=== PATIENT | female | born 1930 | race Caucasian/White ===

== ENCOUNTER 2016-06-21 05:39 | Emergency (ER) | payer MEDICARE, BC ==
[2016-06-21] MEDS ORDERED: Ondansetron INJ* 2 MG/ML VIAL IV ONE (06:37)
[2016-06-21] MEDS ORDERED: NS 0.9% 1000 ML* 2,000 ML IV ONE (06:37)
[2016-06-21 07:02] LABS: Hematocrit 47 % (35-47); Mean Corpuscular HGB Conc 34 g/dl (31-36); Mean Corpuscular Hemoglobin 30 pg (27-31); Mean Corpuscular Volume 87 fL (80-97); Mean Platelet Volume 8 um3 (7.4-10.4); Red Cell Distribution Width 13 % (10.5-15); White Blood Count 9.6 10^3/ul (3.5-10.8)
[2016-06-21 07:15] LABS: Albumin 3.9 g/dL (3.2-5.2); BUN/Creatinine Ratio 23.4 (8-20); Calcium 10.1 mg/dL (8.6-10.3); EGFR African American 91.8 (>60); EGFR Non-African American 71.4 (>60); Globulin 2.7 g/dL (2-4); Potassium 3.1 mmol/L (3.5-5.0); Total Bilirubin 0.6 mg/dL (0.2-1.0); Total Protein 6.6 g/dL (6.4-8.9)
[2016-06-21] MEDS ORDERED: Potassium Chlor TAB* 20 MEQ TAB.ER PO ONE (07:57)
[2016-06-21 08:04] LABS: Troponin I 0.01 ng/mL (<0.04)
--- NOTE | 2016-06-21 08:06 | RAD ---
HISTORY: Right upper quadrant pain COMPARISONS: None TECHNIQUE: Multiple transverse and longitudinal ultrasound images were obtained of the right upper quadrant of the abdomen using grayscale and color Doppler imaging. FINDINGS: LIVER: The liver is normal in shape, size, contour, and echogenicity. There are no focal parenchymal masses. There is normal hepatopedal flow of the portal vein on Doppler imaging. BILIARY TREE: There is ectasia of the common duct without intrahepatic biliary dilatation. The common duct measures 0.8 cm. GALLBLADDER: 80 cm echogenic focus consistent with a gallstone is noted towards the neck of the gallbladder. There is no gallbladder wall thickening or pericholecystic fluid. The presence or absence of a sonographic Tinajero sign is reported. PANCREAS: The head of the pancreas is unremarkable. The tail of the pancreas is not well visualized secondary to overlying bowel gas. RIGHT KIDNEY: There is renal cortical parenchymal thinning. There is no hydronephrosis or nephrolithiasis. The right kidney measures 9.9 x 5.3 x 5 cm. AORTA AND IVC: The aorta and IVC are unremarkable. FLUID: There are no pleural effusions. There is no free fluid within the hepatorenal recess. OTHER FINDINGS: None. IMPRESSION: 1. CHOLELITHIASIS. 2. ECTASIA OF THE COMMON DUCT UP TO 0.8 CM.
--- NOTE | 2016-06-21 11:18 | ED ---
Donna Miner Matthew, scribed for Pedro Luis Benson MD on 06/21/16 at 0732 . GI/ HPI - HPI Summary HPI Summary: An 86 y/o female presents to the ED c/o of nausea, vomiting, and diarrhea that began 4 days ago. Associated symptoms include RUQ abdominal pain, dizziness, and headache. The patient denies chest pain, SOB, fever, and chills. She states that she's been taking tramadol for pain management after multiple surgeries and abruptly stopped the medication 4 days ago. She last took Tramadol yesterday. - History of Current Complaint Chief Complaint: EDNauseaVomitDiarrh Time Seen by Provider: 06/21/16 07:12 Stated Complaint: N/V, DEHYDRATION Hx Obtained From: Patient Onset/Duration: Started Days Ago, Atraumatic, Still Present Timing: Constant Severity: Moderate Current Severity: Moderate Pain Intensity: 3 Location of Pain: RUQ Associated Signs and Symptoms: Positive: Dizziness, Nausea, Vomiting, Diarrhea, Abdominal Pain - RUQ, Other: - Headache. Negative: Fever, Chills, Chest Pain - Additional Pertinent History Primary Care Physician: [id number] - Allergy/Home Medications Allergies/Adverse Reactions: Allergies Allergy/AdvReac Type Severity Reaction Status Date / Time No Known Allergies Allergy Verified 06/21/16 07:25 PMH/Surg Hx/FS Hx/Imm Hx Endocrine/Hematology History: Denies: Hx Diabetes, Hx Thyroid Disease Cardiovascular History: Reports: Hx Hypertension Denies: Hx Pacemaker/ICD Respiratory History: Reports: Other Respiratory Problems/Disorders - sarcoidosis Denies: Hx Asthma, Hx Chronic Obstructive Pulmonary Disease (COPD), Hx Pneumonia GI History: Denies: Hx Gastroesophageal Reflux Disease, Hx Ulcer History: Denies: Hx Renal Disease Musculoskeletal History: Reports: Hx Arthritis - BACK AND FEET, Hx Back Problems - disk herniation, spinal stenosis with sx's, Other Musculoskeletal History - R rotator cuff repair Denies: Hx Rheumatoid Arthritis Sensory History: Reports: Hx Cataracts - BILATERAL, had sx, sees well, Hx Contacts or Glasses, Hx Macular Degeneration - slight, per patient, Hx Hearing Aid Opthamlomology History: Reports: Hx Cataracts - BILATERAL, had sx, sees well, Hx Contacts or Glasses, Hx Macular Degeneration - slight, per patient Neurological History: Reports: Other Neuro Impairments/Disorders - SPINAL STENOSIS Psychiatric History: Denies: Hx Panic Disorder - Surgical History Surgery Procedure, Year, and Place: 1972-HYSTERECTOMY;. 2005-BIOPSY OF LYMPH NODES;. 2006-ROTATOR CUFF REPAIR RIGHT SHOULDER;. BILATERAL CATARACT 2012;. BACK SURGERY 09/03/14 and 12/14/15-[facility] Hx Anesthesia Reactions: No Infectious Disease History: No Infectious Disease History: Denies: Hx Clostridium Difficile, Hx Hepatitis, Hx Human Immunodeficiency Virus (HIV), Hx of Known/Suspected MRSA, Hx Shingles, Hx Tuberculosis, Hx Known/ Suspected VRE, Hx Known/Suspected VRSA, History Other Infectious Disease, Traveled Outside the [place] in Last 30 Days - Family History Known Family History: Positive: Hypertension - sister, Diabetes - sister, Other - [place] - Social History Alcohol Use: None Substance Use Type: Reports: None Smoking Status (MU): Never Smoked Tobacco Have You Smoked in the Last Year: No Review of Systems Constitutional: Negative Negative: Fever, Chills Eyes: Negative ENT: Negative Cardiovascular: Negative Negative: Chest Pain Respiratory: Negative Negative: Shortness Of Breath Positive: Abdominal Pain - RUQ, Vomiting, Diarrhea, Nausea Genitourinary: Negative Musculoskeletal: Negative Skin: Negative Neurological: Other - Dizziness Positive: Headache Psychological: Normal All Other Systems Reviewed And Are Negative: Yes Physical Exam - Summary Physical Exam Summary: VITAL SIGNS: Reviewed. GENERAL: Patient is a well developed and nourished female who is lying comfortable in the stretcher. Patient is not in any acute respiratory distress. HEAD AND FACE: Normocephalic and atraumatic. EYES: PERRLA, EOMI x 2, No injected conjunctiva. EARS: Hearing grossly intact. Ear canals and tympanic membranes are WNL. MOUTH: Oropharynx within normal limits. NECK: Supple, trachea is midline, no adenopathy, no JVD. CHEST: Symmetric, no tenderness at palpation LUNGS: Clear to auscultation bilaterally. No wheezing or crackles. CVS: RRR,, S1 and S2 present, no murmurs or gallops appreciated. ABDOMEN: Soft, positive RUQ tenderness. No signs of distention. Positive bowel sounds. No rebound no guarding, and no masses palpated. No abdominal bruit or pulsations. EXTREMITIES: FROM in all major joints, no edema, no cyanosis or clubbing. NEURO: Alert and oriented x 3. No acute neurological deficits. Speech is normal. SKIN: Dry and warm Triage Information Reviewed: Yes Vital Signs On Initial Exam: Initial Vitals Temp Pulse Resp BP Pulse Ox 97.8 F 114 18 109/66 98 06/21/16 05:49 06/21/16 05:49 06/21/16 05:49 06/21/16 05:49 06/21/16 05:49 Vital Signs Reviewed: Yes Diagnostics - Vital Signs Vital Signs Temp Pulse Resp BP Pulse Ox 06/21/16 05:51 97.8 F 114 18 109/66 98 06/21/16 05:49 97.8 F 114 18 109/66 98 - Laboratory Lab Results: Lab Results 06/21/16 06/21/16 Range/Units 06:40 06:40 WBC 9.6 (3.5-10.8) 10^3/ul RBC 5.40 (4.0-5.4) 10^6/ul Hgb 16.0 (12.0-16.0) g/dl Hct 47 (35-47) % MCV 87 (80-97) fL MCH 30 (27-31) pg MCHC 34 (31-36) g/dl RDW 13 (10.5-15) % Plt Count 258 (150-450) 10^3/ul MPV 8 (7.4-10.4) um3 Neut % (Auto) 93.0 H (38-83) % Lymph % (Auto) 3.7 L (25-47) % Hudspeth % (Auto) 3.0 (1-9) % Eos % (Auto) 0.1 (0-6) % Baso % (Auto) 0.2 (0-2) % Absolute Neuts (auto) 8.9 H (1.5-7.7) 10^3/ul Absolute Lymphs (auto) 0.4 L (1.0-4.8) 10^3/ul Absolute Monos (auto) 0.3 (0-0.8) 10^3/ul Absolute Eos (auto) 0 (0-0.6) 10^3/ul Absolute Basos (auto) 0 (0-0.2) 10^3/ul Absolute Nucleated RBC 0.02 10^3/ul Nucleated RBC % 0.2 Sodium 133 (133-145) mmol/L Potassium 3.1 L (3.5-5.0) mmol/L Chloride 99 L (101-111) mmol/L Carbon Dioxide 25 (22-32) mmol/L Anion Gap 9 (2-11) mmol/L BUN 18 (6-24) mg/dL Creatinine 0.77 (0.51-0.95) mg/dL Est GFR ( Amer) 91.8 (>60) Est GFR (Non-Af Amer) 71.4 (>60) BUN/Creatinine Ratio 23.4 H (8-20) Glucose 139 H (70-100) mg/dL Calcium 10.1 (8.6-10.3) mg/dL Total Bilirubin 0.60 (0.2-1.0) mg/dL AST 24 (13-39) U/L ALT 19 (7-52) U/L Alkaline Phosphatase 100 (34-104) U/L C-React Prot High Sens 12.43 mg/L Total Protein 6.6 (6.4-8.9) g/dL Albumin 3.9 (3.2-5.2) g/dL Globulin 2.7 (2-4) g/dL Albumin/Globulin Ratio 1.4 (1-3) Lipase 20 (11.0-82.0) U/L Result Diagrams: 06/21/16 06:40 06/21/16 06:40 Lab Statement: Any lab studies that have been ordered have been reviewed, and results considered in the medical decision making process. - Ultrasound No standard instances Ultrasound Interpretation: Positive (See Comments) - IMPRESSION: 1. CHOLELITHIASIS. 2. ECTASIA OF THE COMMON DUCT UP TO 0.8 CM. Ultrasound Interpretation Completed By: Radiologist MARCIE Course/Dx - Course Assessment/Plan: An 86 y/o female presents to the ED c/o of nausea, vomiting, and diarrhea that began 4 days ago. Associated symptoms include RUQ abdominal pain, dizziness, and headache. The patient denies chest pain, SOB, fever, and chills. She states that she's been taking tramadol for pain management after multiple surgeries and abruptly stopped the medication 4 days ago. Blood work found to WNL except potassium of 3.1, chloride of 99, and glucose of 139. The patient was given potassium chloride PO and she did not have nausea and vomiting. The RUQ US was done since the patient was c/o of RUQ pain. The US shows cholelithiasis and ectasia of the common duct. After the patient was hydrated and given Zofran, her symptoms resolved. Patient reports on re- examination that shes feeling better and has no pain. Cholelithiasis but not an acute cholecystitis. The patient also reports that her symptoms are secondary to stopping the Tramadol. She will follow-up with her PCP to luz elena down the Tramadol. Since the patient is asymptomatic, has no other symptoms, tolerating PO, and pain free, she will be discharged home with PCP follow-up. She is hemodynamically stable and A&Ox3. I discussed all the findings and test results with the patient. Patient was instructed to return to the emergency room immediately if any of the symptoms return or worsens. They were explained the possibility of an early abdominal pathology which was not detected at this time despite the physical exam and testing. They understand and agree. Abdominal exam before discharge: Soft, NT. No signs of distention. BS present. No rebound no guarding, and no masses palpated. Patient is alert and oriented and hemodynamically stable. Patient is to follow up with primary care physician in the next 2 to 3 days. Patient agree and understands. - Diagnoses Differential Diagnoses - Female: Gall Bladder Disease, Gastroenteritis (Viral), Gastroenteritis (Bacterial), Gerd, Other Provider Diagnoses: Abdominal pain Discharge - Discharge Plan Condition: Stable Disposition: HOME Prescriptions: Ondansetron ODT TAB* [Zofran 4 MG Odt TAB*] 4 mg PO Q6H PRN #10 tab.odt PRN Reason: Vomiting Patient Education Materials: Abdominal Pain (ED), Ondansetron (By mouth) Referrals: Magda Unger MD [Primary Care Provider] - 2 Days Additional Instructions: Please follow-up with your primary care physician in the next 2 days. The documentation as recorded by the Donna sullivan Matthew accurately reflects the service I personally performed and the decisions made by me, Pedro Lusi Benson MD.
[2016-06-21 11:41] VITALS: BP 103/85
== END 2016-06-21 11:39 | disposition home or self-care (01) ==
LOC: ED 05:39
DX: R10.11 Right upper quadrant pain (principal); R42 Dizziness and giddiness; R11.2 Nausea with vomiting, unspecified; R19.7 Diarrhea, unspecified
CPT/HCPCS: 36415; 76705; 80053; 83690; 84484; 85025; 86141; 99284; A9270-GY; J2405

== ENCOUNTER 2016-10-26 04:47 | Emergency (ER) | payer MEDICARE, BC ==
[2016-10-26 05:09] VITALS: BP 147/71
--- NOTE | 2016-10-26 05:53 | ED ---
Juanita Miner Alfonso, scribed for Cayetano Rojas MD on 10/26/16 at 0524 . Adult Trauma - HPI Summary HPI Summary: This patient is an 86 year old F [facility] [place] a [place] s /p a fall earlier this morning. She reports falling on the way to the bathroom using a new cane. The pain is described as soreness. The patient rates the pain 4/10 in severity. Symptoms aggravated and alleviated by nothing. Patient reports left elbow pain, left forearm pain, left shoulder pain, left hip pain, and left leg pain. Patient denies head trauma. She denies taking blood thinning medication. - History of Current Complaint Chief Complaint: EDExtremityUpper Stated Complaint: FALL//SKIN TEARS ON LEFT ARM Time Seen by Provider: 10/26/16 05:10 Hx Obtained From: Patient Mechanism of Injury: Fall Ambulatory at the Scene: Yes Onset/Duration: Started Minutes Ago - Earlier this morning., Still Present Onset of Pain: Prior to Arrival Onset Severity: Moderate Current Severity: Moderate Pain Intensity: 4 Pain Scale Used: 0-10 Numeric Character: Dull - Soreness Aggravating Factor(s): Nothing Alleviating Factor(s): Nothing Associated Signs & Symptoms: Positive: Other: - Patient reports left elbow pain , left forearm pain, left shoulder pain, left hip pain, and left leg pain. Patient denies head trauma. - Additional Pertinent History Primary Care Physician: [id number] - Allergy/Home Medications Allergies/Adverse Reactions: Allergies Allergy/AdvReac Type Severity Reaction Status Date / Time No Known Allergies Allergy Verified 06/21/16 07:25 PMH/Surg Hx/FS Hx/Imm Hx Endocrine/Hematology History: Denies: Hx Diabetes, Hx Thyroid Disease Cardiovascular History: Reports: Hx Hypertension Denies: Hx Pacemaker/ICD Respiratory History: Reports: Other Respiratory Problems/Disorders - sarcoidosis Denies: Hx Asthma, Hx Chronic Obstructive Pulmonary Disease (COPD), Hx Pneumonia GI History: Denies: Hx Gastroesophageal Reflux Disease, Hx Ulcer History: Denies: Hx Renal Disease Musculoskeletal History: Reports: Hx Arthritis - BACK AND FEET, Hx Back Problems - disk herniation, spinal stenosis with sx's, Other Musculoskeletal History - R rotator cuff repair Denies: Hx Rheumatoid Arthritis Sensory History: Reports: Hx Cataracts - BILATERAL, had sx, sees well, Hx Contacts or Glasses, Hx Macular Degeneration - slight, per patient, Hx Hearing Aid Opthamlomology History: Reports: Hx Cataracts - BILATERAL, had sx, sees well, Hx Contacts or Glasses, Hx Macular Degeneration - slight, per patient Neurological History: Reports: Other Neuro Impairments/Disorders - SPINAL STENOSIS Psychiatric History: Denies: Hx Panic Disorder - Surgical History Surgery Procedure, Year, and Place: 1972-HYSTERECTOMY;. 2005-BIOPSY OF LYMPH NODES;. 2006-ROTATOR CUFF REPAIR RIGHT SHOULDER;. BILATERAL CATARACT 2012;. BACK SURGERY 09/03/14 and 12/14/15-[facility] Hx Anesthesia Reactions: No Infectious Disease History: No Infectious Disease History: Denies: Hx Clostridium Difficile, Hx Hepatitis, Hx Human Immunodeficiency Virus (HIV), Hx of Known/Suspected MRSA, Hx Shingles, Hx Tuberculosis, Hx Known/ Suspected VRE, Hx Known/Suspected VRSA, History Other Infectious Disease, Traveled Outside the [place] in Last 30 Days - Family History Known Family History: Positive: Hypertension - sister, Diabetes - sister, Other - [place] - Social History Alcohol Use: None Substance Use Type: Reports: None Smoking Status (MU): Never Smoked Tobacco Have You Smoked in the Last Year: No Review of Systems Negative: Fever Musculoskeletal: Other - Positive fall, left elbow pain, left forearm pain, left shoulder pain, left hip pain, and left leg pain; negative head trauma. All Other Systems Reviewed And Are Negative: Yes Physical Exam Triage Information Reviewed: Yes Vital Signs On Initial Exam: Initial Vitals Temp Pulse Resp BP Pulse Ox 97.2 F 76 18 147/71 95 10/26/16 05:04 10/26/16 05:04 10/26/16 05:04 10/26/16 05:04 10/26/16 05:04 Vital Signs Reviewed: Yes Appearance: Positive: Well-Appearing, No Pain Distress Skin: Positive: Warm, Skin Color Reflects Adequate Perfusion, Dry, Other - Incision at back closed with no drainage or erythema. Head/Face: Positive: Normal Head/Face Inspection Eyes: Positive: EOMI, ARELIS ENT: Positive: Normal ENT inspection Neck: Positive: Supple, Nontender Respiratory/Lung Sounds: Positive: Clear to Auscultation, Breath Sounds Present Cardiovascular: Positive: RRR Abdomen Description: Positive: Nontender, Soft Bowel Sounds: Positive: Present Musculoskeletal: Positive: Strength/ROM Intact, Other Neurological: Positive: Normal, Sensory/Motor Intact, Alert, Oriented to Person Place, Time Psychiatric: Positive: Affect/Mood Appropriate - Veronika Coma Scale Coma Scale Total: 15 Diagnostics - Vital Signs Vital Signs Temp Pulse Resp BP Pulse Ox 10/26/16 05:04 97.2 F 76 18 147/71 95 - Laboratory Lab Statement: Any lab studies that have been ordered have been reviewed, and results considered in the medical decision making process. Adult Trauma Course/Dx - Course Course Of Treatment: Skin tear edges re approximated and steri stripped. Shoulder FROM. Denies c/o of ribs fxr. - Diagnoses Provider Diagnoses: Contusion of rib on left side, Left shoulder pain, Skin tear of left upper extremity Discharge - Discharge Plan Condition: Stable Disposition: HOME Patient Education Materials: Contusion in Adults (ED), Rib Contusion (ED), Shoulder Pain (ED), Skin Tear (ED) Referrals: Magda Unger MD [Primary Care Provider] - Additional Instructions: FOLLOW UP WITH YOUR DOCTOR. RETURN TO THE EMERGENCY DEPARTMENT FOR ANY WORSENING OF YOUR CONDITION OR QUESTIONS OR CONCERNS. The documentation as recorded by the Juanita sullivan Alfonso accurately reflects the service I personally performed and the decisions made by me, Cayetano Rojas MD.
== END 2016-10-26 05:55 | disposition home or self-care (01) ==
LOC: ED 04:47
DX: S41.112A Laceration without foreign body of left upper arm, initial encounter (principal); M25.522 Pain in left elbow; M79.632 Pain in left forearm; S20.212A Contusion of left front wall of thorax, initial encounter; W19.XXXA Unspecified fall, initial encounter; Y93.9 Activity, unspecified; Y92.89 Other specified places as the place of occurrence of the external cause
CPT/HCPCS: 99282

== ENCOUNTER 2017-12-07 20:54 | Emergency (ER) | payer MEDICARE, BC ==
[2017-12-07] MEDS ORDERED: traMADol TAB* 50 MG PO ONE (21:36)
[2017-12-07] MEDS ORDERED: ALPRAZolam TAB* 0.25 MG PO ONE (21:37)
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
--- NOTE | 2017-12-07 22:36 | RAD ---
EXAM: CT Lumbar Spine Without Intravenous Contrast CLINICAL HISTORY: 87 years old, female; Injury or trauma; Fall; Initial encounter; Sprain or strain, lumbar ligaments TECHNIQUE: Axial computed tomography images of the lumbar spine without intravenous contrast. All CT scans at this facility use at least one of these dose optimization techniques: automated exposure control; mA and/or kV adjustment per patient size (includes targeted exams where dose is matched to clinical indication); or iterative reconstruction. Coronal and sagittal reformatted images were created and reviewed. COMPARISON: [facility] WO MRI LUMBAR SPINE W/O 05/08/2016 12:14 PM FINDINGS: Vertebrae: 5 lumbar-type vertebral bodies with a mild dextroscoliosis. No pathologic subluxation. No acute fracture. Discs/spinal canal/neural foramina: L1-L2: Indentation of the inferior endplate of L1 with a vacuum phenomenon within the central disc space. Diffusely bulging disc. Mild degenerative changes of the facet joints. No significant central canal stenosis. Moderate narrowing of the neural foramen on both sides due to the presence of the diffusely bulging disc. L2-L3: Left laminectomy defect with the presence of epidural soft tissue. A vacuum phenomenon within the central disc space with a diffusely bulging disc. Mild narrowing of the central canal. Buckling of the ligamentum flavum bilaterally. Moderate degenerative changes of both facet joints. Moderately severe narrowing of the right neural foramen with loss of the normal perineural fat. Moderate narrowing of the left neural foramen. L3-L4: Marked decrease in the height of disc space with a vacuum phenomenon. Irregularity of the inferior endplate of L3. Sclerosis of the marrow adjacent to the disc space on the left side. Hemilaminectomy defect on the left side. Epidural soft tissue Diffusely bulging disc. Mild degenerative changes of the right facet joints. Moderate degenerative changes of the left facet joint. Mild narrowing of the central canal. Moderate narrowing of the neural foramen on both sides. L4-L5: The vacuum phenomenon located within the disc space. Diffusely bulging disc with presence of the posterior bony ridge. Moderate degenerative changes of both facet joints. Buckling of the ligamentum flavum. Moderate narrowing of the central canal. Severe narrowing of the right neural foramina with flattening of the nerve rootlet and loss of the perineural fat. Moderately severe narrowing of the left neural foramen. L5 S1. A vacuum phenomenon within the disc space. Broad-based central disc protrusion. No significant central canal stenosis. Severe narrowing of the right neural foramina with flattening of the nerve rootlet and loss of the perineural fat. Moderate narrowing of the left neural foramen. Soft tissues: Atrophy of the paraspinous musculature. IMPRESSION: 1. Multilevel degenerative lumbar disc disease. Moderate narrowing of the spinal canal at L4-L5 due to the combination of a diffusely bulging disc, buckling of the ligamentum flavum and severe degenerative changes of the facet joints. Severe narrowing of the right neural foramina with flattening of the nerve rootlet and loss of the perineural fat. 2. Hemilaminectomy on the left at L2-L3 and L3-L4. Mild narrowing of spinal canal at these levels. There is the presence of soft tissue located in the epidural space. Moderate narrowing of neural foramina both sides. 3. Since the prior MRI study of 05/08/2016. No significant new findings.
--- NOTE | 2017-12-07 22:42 | RAD ---
EXAM: CT Thoracic Spine Without Intravenous Contrast CLINICAL HISTORY: 87 years old, female; Injury or trauma; Fall; Initial encounter; Abrasion TECHNIQUE: Axial computed tomography images of the thoracic spine without intravenous contrast. All CT scans at this facility use at least one of these dose optimization techniques: automated exposure control; mA and/or kV adjustment per patient size (includes targeted exams where dose is matched to clinical indication); or iterative reconstruction. Coronal and sagittal reformatted images were created and reviewed. COMPARISON: No relevant prior studies available. FINDINGS: Vertebrae: 12 thoracic type vertebral bodies. Mild dextroscoliosis. No evidence of a vertebral body fracture or posterior element fracture. Osteopenic appearing spine. Changes in the T6, T7, T8 and T11 vertebral bodies consistent with hemangiomas. No paraspinous mass. Discs/spinal canal/neural foramina: Multilevel degenerative disc disease with irregularity of the endplates. No significant central disc protrusion. Mild degenerative changes of the posterior endplates at T4 T5 which there is a posterior bony ridge. No central canal stenosis. No bony neural foraminal narrowing. Soft tissues: No paraspinal mass. Paraspinous musculature appears normal. Lymph nodes: Multiple calcified mediastinal and hilar lymph nodes IMPRESSION: 1. No evidence of a compression fracture. 2. Osteopenic spine. Multiple vertebral bodies containing hemangiomas. 3. No significant central canal stenosis or neuroforaminal narrowing. 4. Multiple calcified mediastinal and pulmonary hilar lymphs nodes.
[2017-12-07] MEDS ORDERED: LORazepam TAB(*) 1 MG PO ONE (23:45)
[2017-12-08 00:32] VITALS: BP 128/62
== END 2017-12-08 00:30 | disposition home or self-care (01) ==
LOC: ED 20:54
DX: M54.5 Low back pain (principal); W19.XXXA Unspecified fall, initial encounter; Y92.9 Unspecified place or not applicable; M51.36 Other intervertebral disc degeneration, lumbar region; D18.09 Hemangioma of other sites; M85.88 Other specified disorders of bone density and structure, other site; I89.8 Other specified noninfective disorders of lymphatic vessels and lymph nodes; Z98.890 Other specified postprocedural states
CPT/HCPCS: 72128; 72131; 99283; A9270-GY

== ENCOUNTER 2017-12-09 14:00 | Emergency (ER) | payer MEDICARE, BC ==
[2017-12-09] MEDS ORDERED: Morphine INJ* 4 MG/ML 1 ML SYRINGE (NEW SYRINGE VERSION) IV ONE (14:49)
[2017-12-09] MEDS ORDERED: Ondansetron INJ* 2 MG/ML VIAL ONE (14:56)
[2017-12-09] MEDS ORDERED: Ondansetron INJ* 2 MG/ML VIAL IV ONE (14:58)
--- NOTE | 2017-12-09 16:03 | RAD ---
HISTORY: pain, s/p fall yesterday COMPARISONS: February 15, 2016 VIEWS: 3 , frontal, inlet, and outlet views of the pelvis FINDINGS: BONE DENSITY: There is diffuse osteopenia. BONES: There is no displaced fracture. JOINTS: There is mild osteoarthritis of the hips and SI joints. ALIGNMENT: There is no dislocation. SOFT TISSUES: Unremarkable. OTHER FINDINGS: Degenerative changes noted of the spine. IMPRESSION: OSTEOPENIA. OSTEOARTHRITIS. NO ACUTE OSSEOUS INJURY. THE DEGREE OF OSTEOPENIA MAY MAKE A NONDISPLACED FRACTURE RADIOGRAPHICALLY OCCULT. IF SYMPTOMS PERSIST, RECOMMEND REPEAT IMAGING.
[2017-12-09] MEDS ORDERED: Cyclobenzaprine TAB* 10 MG PO ONE (16:41)
[2017-12-09 17:15] LABS: Urine Appearance Clear; Urine Blood Negative (Negative); Urine Color Yellow; Urine Ketones Negative (Negative); Urine Protein Negative (Negative); Urine Specific Gravity 1.009 (1.010-1.030); Urine Urobilinogen Negative (Negative)
[2017-12-09] MEDS ORDERED: HYDROcodone/ACETAMIN 5-325 MG* 1 TAB PO ONE (17:54)
[2017-12-09 18:43] VITALS: BP 142/95
--- NOTE | 2017-12-09 19:00 | ED ---
Back Pain - HPI Summary HPI Summary: The pt is a 87 y.o female presenting to the [facility] with a chief complaint of muscular back spasms. Prior to the initial examination, the pt received a labwork and medication which improved the pt's condition. The triage note stated that the pt had fallen yesterday and was seen as treated here. Pt stated said that she had CT done here. Today, the pt awoke today with back pain and spasms. She has taken oxycodone and baclofen at 1000 according to the triage report. She reports good mobility and was able to walk with assistance. The patient rates the pain 3/10 in severity. Symptoms aggravated by nothing. Symptoms alleviated by nothing. The pt denies fevers, chills, rashes, abd pain, double vision, blurry vision, N/V, hemturia, burning when urinating, SOB, chest pain, sore throat, ORTIZ and ear ache. - History of Current Complaint Chief Complaint: EDBackInjuryPain Stated Complaint: BACK SPASMS Hx Obtained From: Patient Onset/Duration: Lasting Days - since yesterday Onset/Duration: Started Days Ago - Yesterday (12/08/17) Severity Initially: Mild Severity Currently: Mild Pain Intensity: 3 Pain Scale Used: 0-10 Numeric Character: Spasmodic Aggravating Symptom(s): Nothing Alleviating Symptom(s): Nothing - Allergies/Home Medications Allergies/Adverse Reactions: Allergies Allergy/AdvReac Type Severity Reaction Status Date / Time No Known Allergies Allergy Verified 12/09/17 14:08 Home Medications: Home Medications DULoxetine DR CAP* [Cymbalta CAP*] 20 mg PO DAILY 12/09/17 [History Confirmed ] PMH/Surg Hx/FS Hx/Imm Hx Endocrine/Hematology History: Denies: Hx Diabetes, Hx Thyroid Disease Cardiovascular History: Reports: Hx Hypertension Denies: Hx Pacemaker/ICD Respiratory History: Reports: Other Respiratory Problems/Disorders - sarcoidosis Denies: Hx Asthma, Hx Chronic Obstructive Pulmonary Disease (COPD), Hx Pneumonia GI History: Denies: Hx Gastroesophageal Reflux Disease, Hx Ulcer History: Denies: Hx Renal Disease Musculoskeletal History: Reports: Hx Arthritis - BACK AND FEET, Hx Back Problems - disk herniation, spinal stenosis with sx's, Other Musculoskeletal History - R rotator cuff repair Denies: Hx Rheumatoid Arthritis Sensory History: Reports: Hx Cataracts - BILATERAL, had sx, sees well, Hx Contacts or Glasses, Hx Macular Degeneration - slight, per patient, Hx Hearing Aid, Hx Hearing Problem Opthamlomology History: Reports: Hx Cataracts - BILATERAL, had sx, sees well, Hx Contacts or Glasses, Hx Macular Degeneration - slight, per patient Neurological History: Reports: Other Neuro Impairments/Disorders - SPINAL STENOSIS Denies: Hx Developmental Delay Psychiatric History: Denies: Hx Panic Disorder - Surgical History Surgery Procedure, Year, and Place: 1972-HYSTERECTOMY;. 2005-BIOPSY OF LYMPH NODES;. 2006-ROTATOR CUFF REPAIR RIGHT SHOULDER;. BILATERAL CATARACT 2012;. BACK SURGERY (4 TOTAL) 09/03/14, 12/14/15, 09/2016, 02/28/17 Hx Anesthesia Reactions: No Infectious Disease History: No Infectious Disease History: Denies: Hx Clostridium Difficile, Hx Hepatitis, Hx Human Immunodeficiency Virus (HIV), Hx of Known/Suspected MRSA, Hx Shingles, Hx Tuberculosis, Hx Known/ Suspected VRE, Hx Known/Suspected VRSA, History Other Infectious Disease, Traveled Outside the [place] in Last 30 Days - Family History Known Family History: Positive: Hypertension - sister, Diabetes - sister, Other - [place] - Social History Occupation: Retired Alcohol Use: None Substance Use Type: Reports: None Smoking Status (MU): Never Smoked Tobacco Have You Smoked in the Last Year: No Review of Systems Negative: Fever, Chills Eyes: Other - Negative double vision Negative: Blurred Vision Negative: Sore Throat, Ear Ache Negative: Chest Pain Negative: Shortness Of Breath Negative: Abdominal Pain, Vomiting, Nausea Positive: no symptoms reported. Negative: burning, hematuria Musculoskeletal: Other - Back pain Negative: Rash Negative: Headache Psychological: Normal All Other Systems Reviewed And Are Negative: No Physical Exam - Summary Physical Exam Summary: Appearance: Alert, conversive, nontoxic appearing Skin: Warm, dry, no mottling, no rashes, no contusions HEENT: EOMI, PERRL, moist mucous membranes Neck: No masses on the neck, supple Respiratory: Clear to auscultation, breath sounds present, no rales, no rhonchi , no wheezes Cardiovascular: RRR, pulses are symmetrical in both lower and upper extremities Abdomen: Soft, non-tender Bowel Sounds: Present Musculoskeletal: Mild diffuse tenderness to the lumbar Para-spinal region Neurological: A&Ox3, CN II-XII Intact, moving all extremities symmetrically Psychiatric: Normal affect and mood Triage Information Reviewed: Yes Vital Signs On Initial Exam: Initial Vitals Temp Pulse Resp BP Pulse Ox 97.8 F 91 16 121/75 95 12/09/17 14:04 12/09/17 14:04 12/09/17 14:04 12/09/17 14:04 12/09/17 14:04 Vital Signs Reviewed: Yes Diagnostics - Vital Signs Vital Signs Temp Pulse Resp BP Pulse Ox 12/09/17 18:42 97.3 F 57 16 142/95 94 12/09/17 15:06 81 124/76 86 12/09/17 14:58 16 12/09/17 14:04 97.8 F 91 16 121/75 95 - Laboratory Lab Results: Lab Results 12/09/17 Range/Units 16:56 Urine Color Yellow Urine Appearance Clear Urine pH 6.0 (5-9) Ur Specific [place] 1.009 L (1.010-1.030) Urine Protein Negative (Negative) Urine Ketones Negative (Negative) Urine Blood Negative (Negative) Urine Nitrate Negative (Negative) Urine Bilirubin Negative (Negative) Urine Urobilinogen Negative (Negative) Ur Leukocyte Esterase Negative (Negative) Urine Glucose Negative (Negative) Lab Statement: Any lab studies that have been ordered have been reviewed, and results considered in the medical decision making process. - Radiology Pelvic X-ray Radiology Interpretation Completed By: Radiologist - Pelvic X-ray reveals, as per radiologist, OSTEOPENIA. OSTEOARTHRITIS. NO ACUTE OSSEOUS INJURY. THE DEGREE OF OSTEOPENIA MAY MAKE A NONDISPLACED FRACTURE RADIOGRAPHICALLY OCCULT. IF SYMPTOMS PERSIST, RECOMMEND REPEAT IMAGING. ED physician has reviewed this radiology report. Back Pain Course/Dx - Course Course Of Treatment: The pt is a 87 y.o female with a chief complaint of muscular back spasms. Upon initial examination, the pt recieved medication such as flexril for her back spasms and morphine for the pain. We reviewed the most recent pelvic X-ray which was negative and the previous CT scans which showed now acute fractures. The pt will be discharged home with a dx of muscle back spasms. - Diagnoses Provider Diagnoses: Back muscle spasm Discharge - Sign-Out/Discharge Documenting (check all that apply): Patient Departure - Discharge home - Discharge Plan Condition: Stable Disposition: HOME Patient Education Materials: Low Back Strain (ED) Referrals: Magda Unger MD [Primary Care Provider] - Additional Instructions: Please follow up with your primary care physician 1-2 days.. return if worse or any new symptoms. Take all medications as previously instructed. Please use assistance to walk over the next several days to avoid any falls. - Attestation Statements Document Initiated by Scribe: Yes Documenting Scribe: Simba Ga Provider For Whom Scribe is Documenting (Include Credential): Dr. Cate Puga Scribe Attestation: Simba Miner, scribed for Dr. Cate Puga on 12/09/17 at 1909.
== END 2017-12-09 18:42 | disposition home or self-care (01) ==
LOC: ED 14:00
DX: M62.830 Muscle spasm of back (principal); M85.88 Other specified disorders of bone density and structure, other site; M47.818 Spondylosis without myelopathy or radiculopathy, sacral and sacrococcygeal region; M16.0 Bilateral primary osteoarthritis of hip
CPT/HCPCS: 72190; 81003; 96374; 96375; 99282; A9270-GY; J2270; J2405

== ENCOUNTER 2017-12-16 10:20 | Inpatient (IN) | payer MEDICARE, BC ==
--- NOTE | 2017-12-16 10:51 | ED ---
Back Pain - HPI Summary HPI Summary: The pt is a 87 y.o female with a chief complaint of back pain. She was presenting to [facility]. As per triage report and EMS report, The pt is currently taking Tramadol and Baclofen, however, there are 12 tablets missing from the Baclofen bottle that was supposed to be refilled 2 days ago. Pt is also acutely confused and reportedly knows she has taken too much medication. The family has stated that the pills were out of the bottle and over the counter and floor as per EMS report. The patient rates the pain 5/10 in severity. Symptoms aggravated by nothing. Symptoms alleviated by nothing. She has taken muscle relaxants. Pt was unable to answer how she was able to present to the [facility] during initial examination. She was able to state she has been taken Tramadol. Pt also reports weakness. - History of Current Complaint Chief Complaint: EDSubstanceAbuse Stated Complaint: WEAKNESS/CONFUSION Time Seen by Provider: 12/16/17 10:35 Onset/Duration: Still Present Onset/Duration: Started Hours Ago Timing: Constant Severity Initially: Moderate Severity Currently: Moderate Pain Intensity: 5 Pain Scale Used: 0-10 Numeric Aggravating Symptom(s): Nothing Alleviating Symptom(s): Nothing Associated Signs And Symptoms: Positive: Other - Weakness and confusion. - Allergies/Home Medications Allergies/Adverse Reactions: Allergies Allergy/AdvReac Type Severity Reaction Status Date / Time No Known Allergies Allergy Verified 12/09/17 14:08 PMH/Surg Hx/FS Hx/Imm Hx Endocrine/Hematology History: Denies: Hx Diabetes, Hx Thyroid Disease Cardiovascular History: Reports: Hx Hypertension Denies: Hx Pacemaker/ICD Respiratory History: Reports: Other Respiratory Problems/Disorders - sarcoidosis Denies: Hx Asthma, Hx Chronic Obstructive Pulmonary Disease (COPD), Hx Pneumonia GI History: Denies: Hx Gastroesophageal Reflux Disease, Hx Ulcer History: Denies: Hx Renal Disease Musculoskeletal History: Reports: Hx Arthritis - BACK AND FEET, Hx Back Problems - disk herniation, spinal stenosis with sx's, Other Musculoskeletal History - R rotator cuff repair Denies: Hx Rheumatoid Arthritis Sensory History: Reports: Hx Cataracts - BILATERAL, had sx, sees well, Hx Contacts or Glasses, Hx Macular Degeneration - slight, per patient, Hx Hearing Aid, Hx Hearing Problem Opthamlomology History: Reports: Hx Cataracts - BILATERAL, had sx, sees well, Hx Contacts or Glasses, Hx Macular Degeneration - slight, per patient Neurological History: Reports: Other Neuro Impairments/Disorders - SPINAL STENOSIS Denies: Hx Developmental Delay Psychiatric History: Denies: Hx Panic Disorder - Surgical History Surgery Procedure, Year, and Place: 1972-HYSTERECTOMY;. 2005-BIOPSY OF LYMPH NODES;. 2006-ROTATOR CUFF REPAIR RIGHT SHOULDER;. BILATERAL CATARACT 2012;. BACK SURGERY (4 TOTAL) 09/03/14, 12/14/15, 09/2016, 02/28/17 Hx Anesthesia Reactions: No Infectious Disease History: No Infectious Disease History: Denies: Hx Clostridium Difficile, Hx Hepatitis, Hx Human Immunodeficiency Virus (HIV), Hx of Known/Suspected MRSA, Hx Shingles, Hx Tuberculosis, Hx Known/ Suspected VRE, Hx Known/Suspected VRSA, History Other Infectious Disease, Traveled Outside the in Last 30 Days - Family History Known Family History: Positive: Hypertension - sister, Diabetes - sister, Other - CA - Social History Alcohol Use: None Substance Use Type: Reports: None Smoking Status (MU): Never Smoked Tobacco Have You Smoked in the Last Year: No Review of Systems Constitutional: Negative Eyes: Negative ENT: Negative Cardiovascular: Negative Respiratory: Negative Gastrointestinal: Negative Genitourinary: Negative Musculoskeletal: Other - Back pain Skin: Negative Positive: Weakness Psychological: Other - Confusion All Other Systems Reviewed And Are Negative: Yes Physical Exam - Summary Physical Exam Summary: Appearance: The patient is well-nourished in no acute distress and in no acute pain. Skin: The skin is warm and dry and skin color reflects adequate perfusion. HEENT: The head is normocephalic and atraumatic. The pupils are equal and reactive. The conjunctivae are clear and without drainage. Nares are patent and without drainage. Mouth reveals moist mucous membranes and the throat is without erythema and exudate. The external ears are intact. The ear canals are patent and without drainage. The tympanic membranes are intact. Neck: The neck is supple with full range of motion and non-tender. There are no carotid bruits. There is no neck vein distension. Respiratory: Chest is non-tender. Lungs are clear to auscultation and breath sounds are symmetrical and equal. Cardiovascular: Heart is regular rate and rhythm. There is no murmur or rub auscultated. There is no peripheral edema and pulses are symmetrical and equal. Abdomen: The abdomen is soft and non-tender. There are normal bowel sounds heard in all four quadrants and there is no organomegaly palpated. Musculoskeletal: There is no back tenderness noted. There is good capillary refill. There is no peripheral edema or calf tenderness elicited. Neurological: Patient is alert and oriented to person, place and time. The patient has symmetrical motor strength in all four extremities. Cranial nerves are grossly intact. Deep tendon reflexes are symmetrical and equal in all four extremities. Psychiatric: Confused Triage Information Reviewed: Yes Vital Signs On Initial Exam: Initial Vitals Temp Pulse Resp BP Pulse Ox 99.1 F 91 16 170/111 98 12/16/17 10:25 12/16/17 10:25 12/16/17 10:25 12/16/17 10:25 12/16/17 10:25 Vital Signs Reviewed: Yes Diagnostics - Vital Signs Vital Signs Temp Pulse Resp BP Pulse Ox 12/16/17 10:25 99.1 F 91 16 170/111 98 - Laboratory Result Diagrams: 12/16/17 11:25 12/16/17 11:25 Lab Statement: Any lab studies that have been ordered have been reviewed, and results considered in the medical decision making process. - CT Brain CT CT Interpretation Completed By: Radiologist - CT Brain reveals No acute intracranial process evident and Mild involutional change and stigmata of chronic small vessel ischemic disease as per radiologist report. The ED Physician has reviewed this report and agrees. - EKG 1058 EKG Rhythm: Sinus Rhythm - 91 bpm EKG Interpretation: at 1058, PSVC (1) Back Pain Course/Dx - Course Course Of Treatment: Ms. Carr is presented with an altered mental status. She was very confused when I initially evaluated her and was not able to give me any history. She was found by her family in this condition with her medications strewn about and it was unclear whether she took too many. She was recently started on baclofen as a muscle relaxer for low back pain and she is taking tramadol. Initial concern was there were too many baclofen missing from the recent prescription. She was worked up with labs and CT scan and remained confused here in the emergency department. The hospitalist were consulted for further evaluation and admission. - Diagnoses Provider Diagnoses: Altered mental status Discharge - Sign-Out/Discharge Documenting (check all that apply): Patient Departure - Admitted to [facility] - Discharge Plan Condition: Stable Disposition: ADMITTED TO [facility] - Billing Disposition and Condition Condition: STABLE Disposition: Admitted to [facility] - Attestation Statements Document Initiated by Neoibe: Yes Documenting Scribe: Simba Ga Provider For Whom Scribe is Documenting (Include Credential): Dr. Colten Lyn Scribe Attestation: Simba Miner, scribed for Dr. Colten Lyn on 12/16/17 at 1806. Scribe Documentation Reviewed: Yes Provider Attestation: The documentation as recorded by the scribe, Simba Ga accurately reflects the service I personally performed and the decisions made by me, Dr. Colten Lyn
[2017-12-16 11:40] LABS: Hematocrit 45 % (35-47); Hemoglobin 15.6 g/dl (12.0-16.0); Mean Corpuscular HGB Conc 35 g/dl (31-36); Mean Corpuscular Hemoglobin 32 pg (27-31); Mean Corpuscular Volume 90 fL (80-97); Platelet Count 254 10^3/ul (150-450); Red Blood Count 4.95 10^6/ul (4.00-5.40); Red Cell Distribution Width 13 % (10.5-15); White Blood Count 7.9 10^3/ul (3.5-10.8)
[2017-12-16 11:43] LABS: INR 0.96 (0.77-1.02)
[2017-12-16 11:54] LABS: EGFR Non-African American 88.2 (>60)
[2017-12-16 12:02] LABS: ABS Basophils 0 10^3/ul (0-0.2); ABS Eosinophils 0 10^3/ul (0-0.6); ABS Lymphocytes 0.9 10^3/ul (1.0-4.8); ABS Monocytes 0.7 10^3/ul (0-0.8); ABS Neutrophils 6.3 10^3/ul (1.5-7.7); ABS Nucleated RBC 0 10^3/ul; Eosinophil % 0.2 % (0-6); Lymphocyte % 11.5 % (25-47); Nucleated Red Blood Cells % 0
--- NOTE | 2017-12-16 12:09 | RAD ---
Indication: Weakness, mental status change. Comparison: August 30, 2017 CT Technique: Noncontrast CT vertex of skull through foramen magnum. Report: Mild prominence of the cerebral sulci and cerebellar fissures reflecting involutional change. Unremarkable ventricles and basal cisterns. Decreased density in the periventricular and subcortical white matter while non-specific is most likely due to chronic microangiopathy. Negative for delgado matter white matter obscuration, intra or extra-axial hemorrhage, or mass effect. Unremarkable visualized orbital contents. Unremarkable calvarium and skull base. Clear visualized paranasal sinuses and mastoid air spaces. Unremarkable scalp. IMPRESSION: #. No acute intracranial process evident. #. Mild involutional change and stigmata of chronic small vessel ischemic disease.
--- NOTE | 2017-12-16 15:28 | RAD ---
Indication: Back pain post fall. History of spinal stenosis. Comparison: November 29, 2017 CT. Technique: AP and lateral views lumbar sacral spine. Report: No significant change in mild anterior column compression fracture of T12. No new fractures evident. Normal lumbar lordosis. Slight RIGHT convex curve without change. Diffuse advanced degenerative spondylosis and facet joint osteoarthritis without significant change. Disc space narrowing is severe at L3-L4 through L5-S1. Unremarkable paraspinal soft tissue contours. Vascular calcifications noted. IMPRESSION: #. Unchanged mild anterior column T12 compression fracture. #. No new fracture evident. #. 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
[2017-12-16] MEDS: Acetaminophen TAB* 325 MG PO SCH ×2 (16:46→23:56)
[2017-12-16] MEDS: Heparin VIAL(*) 5000 UNITS/ML VIAL (FIVE THOUSAND) SUBCUT SCH ×2 (16:47→20:39)
--- NOTE | 2017-12-16 17:30 | HP ---
CC: Dr. Magda Unger * HISTORY AND PHYSICAL: DATE OF ADMISSION: 12/16/17 PRIMARY CARE PROVIDER: Dr. Magda Unger. ATTENDING PHYSICIAN: Dr. Sarah Vargas * (dictated by Anupama Mariscal NP). CHIEF COMPLAINT: Multiple falls, weakness, confusion, possible medication overdose. HISTORY OF PRESENT ILLNESS: Ms. Carr is an 87-year-old female with past medical history significant for hypertension, sarcoidosis and spinal stenosis, who had been in her usual state of health prior to a week ago when she had a fall at home on 12/09/17. At that time, she was seen in the emergency room with complaints of low back pain. She had a pelvic x-ray showing no acute findings and was discharged home. Approximately 2 days later, she again had a fall at home sitting down onto her bottom when she fell. She has some aid help at home, but it has been noted that she is becoming weaker and not ambulating as much at home. To note, she also had thoracic and lumbar spine CT scans on showing no evidence of compression fractures, osteopenic spine, multiple vertebral bodies containing hemangiomas, no significant central canal stenosis. Also noted to have multilevel degenerative lumbar disk disease, moderate narrowing of the spinal canal at L4-L5 due to combination of a diffusely bulging disk, buckling of the ligamentum flavum and severe degenerative changes of the facet joints. Severe narrowing of the right neural foramina with flattening of the nerve root and loss of perineural fat. She was noted to have a hemilaminectomy of the left at L2-3 and L3-4, mild narrowing of the spinal canal at those levels. There is soft tissue located in the epidural space. No significant new findings since prior MRI of 05/08/16. This morning, the patient 's niece found her lying "upside down" in her bed. She noticed that the room was "trashed" and that another spare bedroom had been "trashed." She also noted that there were medication bottles open on the counter with multiple medications scattered across the counter. She is unsure if there were any missing pills or not, but a bottle of tramadol filled 2 days ago had 12 tablets missing from it. The patient denies any recent fevers, chills, chest pain, shortness of breath, urinary symptoms. She occasionally reports lightheadedness after taking medications. The patient is unable to state how much tramadol she may have taken. Due to the condition her niece found her, she was brought to the emergency room for further evaluation. While in the emergency room, she had a toxicology screening showing less than 2.5 salicylates, less than 15 acetaminophen, less than 10 serum alcohol. She was found to have an elevated troponin of 0.05. She denied chest pain. Her CBC was unremarkable and mild hyponatremia, but this appears to be her baseline. According to her niece, she has been eating, but typically does not eat very much. She was acutely confused, not really answering questions for the emergency room provider. By the time I saw the patient, she was able to converse, but continued to have some confusion. She reports right low back pain. She is really unable to describe this. Per her niece, she is often grabbing towards that side of her back. The hospitalists were asked to evaluate the patient for admission. PAST MEDICAL HISTORY: 1. Hypertension. 2. Sarcoidosis. 3. Spinal stenosis. 4. Anxiety. PAST SURGICAL HISTORY: 1. Status post lymph node biopsy. 2. Status post hysterectomy. 3. Status post rotator cuff repair. 4. Status post bilateral cataract extractions. 5. Status post multiple back surgeries. HOME MEDICATIONS: Include: 1. Ramipril 20 mg oral daily at bedtime. 2. MiraLAX 17 g oral daily. 3. Metoprolol succinate XL 12.5 mg oral daily at bedtime. 4. Gabapentin 600 mg oral in the morning, 600 mg oral at 6 p.m., 1500 mg oral daily at bedtime. 5. Cymbalta 20 mg oral daily. 6. Vitamin B12 at 500 mcg oral daily. 7. Vitamin D 1000 units oral daily. 8. Chlorthalidone 25 mg oral daily. 9. Aspirin 81 mg oral daily. 10. Xanax 0.25 to 0.5 mg oral daily as needed for anxiety. 11. Tramadol 50 mg oral 4 times daily as needed for pain. 12. Verapamil sustained release 180 mg oral daily. 13. Spironolactone 12.5 mg oral daily. ALLERGIES: No known drug allergies. FAMILY HISTORY: Her sister with a history of diabetes. She believes she had a sister with cancer, but she is unsure of the details. SOCIAL HISTORY: She denies tobacco, alcohol, or recreational drug use. She lives alone. Her niece, Natalya Huerta, will be her surrogate decision maker in the event she is unable to make decisions for herself. REVIEW OF SYSTEMS: I performed an 11-point review of systems. All the pertinent positives and negatives are mentioned in the history of present illness. The remaining review of systems are negative. PHYSICAL EXAMINATION GENERAL APPEARANCE: Ms. Carr is alert, pleasant, and appears to be in no acute distress. VITAL SIGNS: Temperature 99.1, heart rate 95, respiratory rate 20, O2 sat 95% on room air, blood pressure 171/88. HEENT: Normocephalic, atraumatic. Pupils are equal and reactive to light. Extraocular movements are intact. RESPIRATORY: There is no accessory muscle use. The lungs are clear to auscultation bilaterally. CARDIOVASCULAR: Regular rate and rhythm. S1, S2 present. There are no murmurs , rubs, or gallops heard. ABDOMEN: Soft, nontender, nondistended. There are bowel sounds present x4. It is of note, the patient did have a couple tender areas in her abdomen, but I was unable to reproduce those a second time. EXTREMITIES: There is no lower extremity edema. DP and PT pulses are 1+ and symmetric. MUSCULOSKELETAL: There is no clubbing or cyanosis noted. She exhibits good strength in all extremities. She is able to move all extremities. She has no pain with palpation in her right hip and pelvic area where she is complaining of pain. Additionally, there is no tenderness to palpation down her midline or lateral sides of her back bilaterally. NEUROLOGIC: She is alert and oriented x3. She is oriented to person, place, and time, with confusion. Cranial nerves II through XII grossly intact. She was able to perform [id number] bilaterally without difficulty. Her tongue is midline. Her handgrips are equal. Her dorsi and plantarflexion are equal bilaterally. She is able to perform the heel from ankle to knee bilaterally without difficulty. The patient is noted to have a resting symmetric face, but when talking or smiling, her face was noted to be slightly asymmetric on the right side. Her family is unsure if this is her baseline or not. PSYCHOLOGIC: She is calm and cooperative. SKIN: She has multiple areas of ecchymosis on her arms and legs. There are no rashes or abnormalities seen. DIAGNOSTIC STUDIES/LAB DATA: Sodium 133, potassium 4.3, chloride 102, CO2 21, BUN 15, creatinine 0.64, glucose 119. White blood cell count 7.9, hemoglobin 15.6, hematocrit 45, platelet count 254. Troponin 0.05. EKG shows a sinus rhythm, rate of 91. There are no acute signs of ischemia. This is similar to previous EKG from 08/30/17. Brain CT from today. No acute intracranial process evident. Mild involutional change and stigmata of small vessel ischemic disease. IMPRESSION: Ms. Carr is an 87-year-old female with past medical history significant for hypertension, sarcoidosis, spinal stenosis, and anxiety, who presented to the emergency room with complaints of falls, altered mental status , and back pain. She will be admitted as an observation. ASSESSMENT/PLAN: 1. Altered mental status. The patient has no focal neurological deficits with the exception of very subtle facial asymmetry. She had a CT of her brain that was negative. For now, I am going to hold off on an MRI, but if she continues to have any other neuro deficits or continues with confusion, we should consider an MRI. She will have neuro checks q.4. She will be monitored on telemetry. The differential for her altered mental status also includes a possible medication overdose. It is unclear if she took more of her medications or not. Additionally, I will check a urinalysis to rule out a urinary tract infection. 2. Weakness and back pain. I will check a lumbar x-ray. She has previously had a pelvic x-ray and lumbar and thoracic spine CTs in the last week to 10 days. We will have Physical Therapy see her for an evaluation. 3. Hypertension. The patient has been noted to be slightly hypertensive this morning. She states that she did take her blood pressure medications today. We will continue her on her home metoprolol succinate, chlorthalidone, verapamil , and spironolactone. 4. Spinal stenosis and back pain. I am going to hold her gabapentin and tramadol for now. I will put her on standing Tylenol. 5. Anxiety. For now, I am going to hold her Xanax. We could consider adding this back in as needed Xanax at a lower dose. 6. Fluids, electrolytes, and nutrition: She will be on a heart-healthy diet. 7. Code status: Do not resuscitate. She has a MOLST on file. 8. DVT prophylaxis: She is a high risk. She will have subcu heparin. 9. Disposition: Observation. TIME SPENT: Time for this admission was approximately 60 minutes, greater than half of that was spent [id number] with the patient and her niece discussing medications, past medical history, the events leading to her arrival today, and performing a physical examination. The case has been reviewed with the attending, Dr. Vargas, who agrees with the plan of care. Reviewed by CARLOZ GAN-Nisreen 12/28/17 0804 [id number]/[facility] #: [id number] [place]
[2017-12-16] MEDS ORDERED: Metoprolol Succinate XL TAB* 25 MG PO SCH (21:00)
[2017-12-16] MEDS ORDERED: Ramipril CAP* 10 MG PO SCH (21:00)
[2017-12-16 21:05] LABS: Urine Appearance Clear; Urine Blood Negative (Negative); Urine Color Yellow; Urine Ketones Trace (Negative); Urine Protein Negative (Negative); Urine Specific Gravity 1.011 (1.010-1.030); Urine Urobilinogen Negative (Negative)
[2017-12-16] MEDS ORDERED: QUEtiapine TAB* 25 MG PO ONE (23:25)
[2017-12-16] MEDS ORDERED: hydrALAZINE IV* 20 MG/ML VIAL IV SLOW PU ONE (23:25)
[2017-12-17] MEDS ORDERED: Lidocaine PATCH 5%* 1 PATCH TRANSDERM ONE
[2017-12-17] MEDS ORDERED: QUEtiapine TAB* 25 MG PO ONE (01:19)
[2017-12-17] MEDS: Heparin VIAL(*) 5000 UNITS/ML VIAL (FIVE THOUSAND) SUBCUT SCH ×3 (06:04→23:06)
[2017-12-17] MEDS: Polyethylene Glycol 3350* 17 GM PACKET PO SCH (09:16)
[2017-12-17] MEDS: Acetaminophen TAB* 325 MG PO SCH ×2 (09:18→16:50)
[2017-12-17] MEDS: Verapamil SR CAP* 180 MG PO SCH (09:18)
[2017-12-17] MEDS: Cyanocobalamin TAB* 500 MCG PO SCH (09:19)
[2017-12-17] MEDS: Aspirin EC TAB* 81 MG TAB.EC PO SCH (09:19)
[2017-12-17] MEDS: Spironolactone TAB* 25 MG PO SCH (09:19)
[2017-12-17] MEDS: Cholecalciferol TAB* 1000 UNITS PO SCH (09:19)
[2017-12-17] MEDS: Chlorthalidone TAB* 50 MG PO SCH (09:20)
[2017-12-17] MEDS: DULoxetine DR CAP* 20 MG CAP.DR PO SCH (09:21)
[2017-12-17] MEDS: Metoprolol Succinate XL TAB* 25 MG PO SCH (10:10)
[2017-12-17] MEDS: Ramipril CAP* 10 MG PO SCH ×2 (10:10→23:02)
[2017-12-17] MEDS ORDERED: Lidocaine Patch REMOVE* 1 NOTE MISC PATCH OFF ONE (12:00)
[2017-12-17] MEDS ORDERED: Diazepam TAB(*) 5 MG PO ONE (20:00)
--- NOTE | 2017-12-17 22:14 | RAD ---
EXAM: MR Head Without Intravenous Contrast CLINICAL HISTORY: 87 years old, female; Signs and symptoms; Altered mental status/memory loss; Confusion or disorientation; Patient HX: Pt having worsening confusion after an accidental medication overdose yesterday. TECHNIQUE: Magnetic resonance images of the head/brain without intravenous contrast in multiple planes. COMPARISON: BRAIN WO CT BRAIN WO 12/16/2017 11:39 AM FINDINGS: Brain: No acute infarct. Bilateral basal ganglia calcifications. No hemorrhage. Ventricles: Ventricles and sulci are prominent consistent with age appropriate parenchymal volume loss. Bones/joints: Unremarkable. Sinuses: Unremarkable as visualized. No acute sinusitis. Mastoid air cells: Unremarkable as visualized. No mastoid effusion. Orbits: Bilateral cataract surgery. Other findings: No hemorrhage. IMPRESSION: No acute intracranial abnormality. To contact [facility] with a general question: [facility] - [phone] For direct physician to physician contact: Physician Hotline - [phone] [facility] ([facility] Facility ID #[id number])
[2017-12-18] MEDS: Acetaminophen TAB* 325 MG PO SCH ×3 (00:22→15:36)
[2017-12-18] MEDS ORDERED: hydrALAZINE IV* 20 MG/ML VIAL IV SLOW PU PRN (00:39)
[2017-12-18 05:57] LABS: Hematocrit 44 % (35-47); Hemoglobin 15.5 g/dl (12.0-16.0); Mean Corpuscular HGB Conc 35 g/dl (31-36); Mean Corpuscular Hemoglobin 31 pg (27-31); Mean Corpuscular Volume 89 fL (80-97); Platelet Count 337 10^3/ul (150-450); Red Blood Count 4.95 10^6/ul (4.00-5.40); Red Cell Distribution Width 13 % (10.5-15); White Blood Count 10.1 10^3/ul (3.5-10.8)
[2017-12-18 06:12] LABS: EGFR Non-African American 71.2 (>60)
[2017-12-18] MEDS: Heparin VIAL(*) 5000 UNITS/ML VIAL (FIVE THOUSAND) SUBCUT SCH ×3 (06:24→22:02)
[2017-12-18 06:35] LABS: ABS Basophils 0 10^3/ul (0-0.2); ABS Eosinophils 0 10^3/ul (0-0.6); ABS Lymphocytes 1.4 10^3/ul (1.0-4.8); ABS Monocytes 0.9 10^3/ul (0-0.8); ABS Neutrophils 7.8 10^3/ul (1.5-7.7); ABS Nucleated RBC 0 10^3/ul; Eosinophil % 0.5 % (0-6); Lymphocyte % 13.5 % (25-47); Nucleated Red Blood Cells % 0.1
[2017-12-18] MEDS: Polyethylene Glycol 3350* 17 GM PACKET PO SCH (09:17)
[2017-12-18] MEDS: Chlorthalidone TAB* 50 MG PO SCH (09:18)
[2017-12-18] MEDS: Metoprolol Succinate XL TAB* 25 MG PO SCH (09:19)
[2017-12-18] MEDS: Cholecalciferol TAB* 1000 UNITS PO SCH (09:19)
[2017-12-18] MEDS: Verapamil SR CAP* 180 MG PO SCH (09:19)
[2017-12-18] MEDS: DULoxetine DR CAP* 20 MG CAP.DR PO SCH (09:19)
[2017-12-18] MEDS: Aspirin EC TAB* 81 MG TAB.EC PO SCH (09:19)
[2017-12-18] MEDS: Cyanocobalamin TAB* 500 MCG PO SCH (09:19)
[2017-12-18] MEDS: Ramipril CAP* 10 MG PO SCH ×2 (09:20→22:02)
[2017-12-18] MEDS: Spironolactone TAB* 25 MG PO SCH (09:20)
--- NOTE | 2017-12-18 13:24 | RAD ---
HISTORY: urinary retention COMPARISONS: None TECHNIQUE: Multiple transverse and longitudinal ultrasound images were obtained of the kidneys and bladder using grayscale and color Doppler imaging. FINDINGS: RIGHT KIDNEY: There is renal cortical parenchymal thinning. There is no hydronephrosis or nephrolithiasis. The right kidney measures 10 x 4.6 x 5.8 cm. LEFT KIDNEY: There is renal cortical parenchymal thinning. There is no hydronephrosis or nephrolithiasis. The left kidney measures 10.9 x 5 x 5 cm. BLADDER: The bladder is smooth in contour. Bilateral ureteral jets are identified. The bladder volume is 199 mL. The patient was unable to void spontaneously. AORTA AND IVC: No images are submitted of the vasculature. RETROPERITONEUM: Unremarkable. OTHER: None. IMPRESSION: RENAL CORTICAL PARENCHYMAL THINNING. NO HYDRONEPHROSIS OR NEPHROLITHIASIS. THE PREVOID BLADDER VOLUME IS A 199 ML. THE PATIENT IS UNABLE TO VOID SPONTANEOUSLY.
[2017-12-19] MEDS: Acetaminophen TAB* 325 MG PO SCH ×4 (00:40→23:33)
[2017-12-19] MEDS: Heparin VIAL(*) 5000 UNITS/ML VIAL (FIVE THOUSAND) SUBCUT SCH ×3 (05:15→21:12)
[2017-12-19 06:56] LABS: EGFR Non-African American 68.2 (>60)
[2017-12-19] MEDS: Polyethylene Glycol 3350* 17 GM PACKET PO SCH (09:04)
[2017-12-19] MEDS: Chlorthalidone TAB* 50 MG PO SCH (09:05)
[2017-12-19] MEDS: DULoxetine DR CAP* 20 MG CAP.DR PO SCH (09:05)
[2017-12-19] MEDS: Verapamil SR CAP* 180 MG PO SCH (09:05)
[2017-12-19] MEDS: Aspirin EC TAB* 81 MG TAB.EC PO SCH (09:05)
[2017-12-19] MEDS: Metoprolol Succinate XL TAB* 25 MG PO SCH (09:06)
[2017-12-19] MEDS: Cholecalciferol TAB* 1000 UNITS PO SCH (09:06)
[2017-12-19] MEDS: Spironolactone TAB* 25 MG PO SCH (09:06)
[2017-12-19] MEDS: Cyanocobalamin TAB* 500 MCG PO SCH (09:06)
[2017-12-19] MEDS: Ramipril CAP* 10 MG PO SCH ×2 (09:07→21:13)
[2017-12-19] MEDS: Omeprazole CAP* 20 MG PO SCH (10:30)
[2017-12-19 17:24] LABS: Urine Appearance Turbid; Urine Blood Negative (Negative); Urine Color Yellow; Urine Ketones Negative (Negative); Urine Protein Negative (Negative); Urine Red Blood Cell Absent (Absent); Urine Specific Gravity 1.017 (1.010-1.030); Urine Urobilinogen Negative (Negative); Urine White Blood Cell 3+(>20/hpf) (Absent)
[2017-12-20] MEDS: Heparin VIAL(*) 5000 UNITS/ML VIAL (FIVE THOUSAND) SUBCUT SCH ×3 (05:16→21:25)
[2017-12-20] MEDS: Metoprolol Succinate XL TAB* 25 MG PO SCH (08:04)
[2017-12-20] MEDS: Cyanocobalamin TAB* 500 MCG PO SCH (08:04)
[2017-12-20] MEDS: Verapamil SR CAP* 180 MG PO SCH (08:04)
[2017-12-20] MEDS: Cholecalciferol TAB* 1000 UNITS PO SCH (08:04)
[2017-12-20] MEDS: Acetaminophen TAB* 325 MG PO SCH ×2 (08:04→15:49)
[2017-12-20] MEDS: Polyethylene Glycol 3350* 17 GM PACKET PO SCH (08:04)
[2017-12-20] MEDS: Aspirin EC TAB* 81 MG TAB.EC PO SCH (08:05)
[2017-12-20] MEDS: DULoxetine DR CAP* 20 MG CAP.DR PO SCH (08:05)
[2017-12-20] MEDS: Chlorthalidone TAB* 50 MG PO SCH (08:05)
[2017-12-20] MEDS: Ramipril CAP* 10 MG PO SCH ×2 (08:05→21:25)
[2017-12-20] MEDS: Spironolactone TAB* 25 MG PO SCH (08:17)
[2017-12-20] MEDS: cefTRIAXone(*) 1 GM in NS 0.9% 50 ML* 50 ML IVPB SCH (10:37)
[2017-12-20] MEDS ORDERED: Ibuprofen TAB* 400 MG PO ONE (13:00)
[2017-12-20] MEDS ORDERED: Aspirin 81 mg CHEW TAB* 81 MG TAB.CHEW PO ONE (16:16)
--- NOTE | 2017-12-20 18:57 | RAD ---
EXAM: US Duplex Bilateral Extracranial Arteries CLINICAL HISTORY: 87 years old, female; Signs and symptoms; Speech disturbance; Additional info: Speech changes TECHNIQUE: Real-time duplex ultrasound scan of the extracranial arteries integrating B-mode two-dimensional vascular structure, Doppler spectral analysis and color flow Doppler imaging. COMPARISON: BRAIN WO CT BRAIN WO 12/16/2017 11:39 AM FINDINGS: Right common carotid artery: Unremarkable. No occlusion or significant stenosis on color flow and spectral Doppler imaging. Right internal carotid artery: Mild proximal stenosis of less than 50%. Right external carotid artery: Unremarkable. No occlusion or significant stenosis on color flow and spectral Doppler imaging. Right vertebral artery: Unremarkable. Antegrade flow. Right ICA/CCA ratio: 0.69 Left common carotid artery: Unremarkable. No occlusion or significant stenosis on color flow and spectral Doppler imaging. Left internal carotid artery: Mild proximal stenosis of less than 50%. Left external carotid artery: Unremarkable. No occlusion or significant stenosis on color flow and spectral Doppler imaging. Left vertebral artery: Unremarkable. Antegrade flow. Left ICA/CCA ratio: 0.82 Lymph nodes: Unremarkable. No lymphadenopathy. CAROTID STENOSIS REFERENCE USING SRU CRITERIA: Mild - <50% stenosis. ICA PSV is less than 125 cm/second and plaque or intimal thickening is visible. Moderate - 50-69% stenosis. ICA PSV is 125 to 230 cm/second and plaque is visible. Severe - 70-94% stenosis. ICA PSV is more than 230 cm/second and visible plaque with lumen narrowing is seen. Near occlusion - 95-99% stenosis. ICA PSV is variable and significant plaque with luminal narrowing is seen. Occluded - 100% stenosis. No flow identified. 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 To contact [facility] with a general question: [facility] - [phone] For direct physician to physician contact: Physician Hotline - [phone] [facility] ([facility] Facility ID #[id number])
--- NOTE | 2017-12-20 19:26 | CONS ---
CONSULTATION REPORT: DATE OF CONSULT: 12/20/2017. PATIENT OF: Dr. Unger.* REASON FOR CONSULT: Neurological consultation for memory and possible speech issues. SOURCE OF INFORMATION: History is from the patient and the chart and from Dr. Unger. HISTORY OF PRESENT ILLNESS: She presented initially on 12/16/17 with some falls , confusion and a possible medication overdose, but since then has had some intermittent confusion, some word-finding problems and has been found today and treatments have been started for urinary tract infection. She lives alone and functions at apparently high level. She of note had a fall also on 12/09/17 and had low back pain associated with that. Two days afterwards, she fell again and had thoracic and lumbar x-rays. On the morning of admission, she was found with her room trashed and there were medication bottles open with multiple medications scattered throughout. It is unclear if there was extra medications taken. PAST MEDICAL HISTORY: She has hypertension, sarcoidosis, spinal stenosis, and anxiety. PAST SURGICAL HISTORY: She is status post a lymph node biopsy, status post hysterectomy, status post rotator cuff repair, status post bilateral cataract extractions, status post multiple back surgeries. MEDICATIONS AT HOME: Include: 1. Ramipril 20 mg at bedtime. 2. MiraLAX 17 g daily. 3. Metoprolol XL 12.5 at bedtime. 4. Gabapentin 600, 600 and 1500 for a history of peripheral neuropathy. She did not complain of any burning or pain in her feet today. 5. Cymbalta 20 mg daily. 6. Vitamin B12 500 mcg daily. 7. Aspirin 81 mg daily. 8. Xanax 0.25 to 0.5 for anxiety. 9. Tramadol 50 up to 4 times a day for pain. 10. Verapamil 180 daily. 11. Spironolactone 12.5 daily. ALLERGIES: She has no known allergies. FAMILY HISTORY: Sister with diabetes. Another sister with cancer. SOCIAL HISTORY: She does not smoke, drink, or use drugs. REVIEW OF SYSTEMS: Negative in all 14 spheres, other than HPI. PHYSICAL EXAM: Temperature 97.7, pulse 82, respirations 16, blood pressure 154/ 80. She is alert and oriented. She knew she was 87. She thought it was [facility] and that she was in the hospital and she actually was confused regarding the president. She can name body parts, knows that she had short-term memory issues with 1 out of 3 with 1 more with prompting. She could repeat without problems. Cranial nerves II through XII were intact. Fundi showed sharp discs. Motor exam revealed normal tone and strength for age. Sensation was decreased to light touch in her feet with decreased proprioception as well, but reflexes were trace in her legs, 1 in her arms. Toes were downgoing. Chest: Clear. Cardiovascular: Regular rate and rhythm. Abdomen: Soft with positive bowel sounds. DIAGNOSTIC STUDIES/LAB DATA: I reviewed her MRI scan, which showed no acute stroke or other findings. There were only mild microvascular changes well within keeping for age and no other findings. Her CT scans of her lumbar and thoracic spine showed multilevel disc disease with moderate stenosis at L4-5 with herniated discs at multiple levels with no neural foraminal stenosis. There were no significant new findings compared to an MRI scan from April 2016. She also had her thoracic CT scan, which showed no acute findings, but also showed osteopenia. She had multiple calcified mediastinal and pulmonary hilar lymph nodes. Labs include sodium of 130, otherwise BMP was normal. B12 was 743, vitamin D was 22. TSH 0.48. Ammonia 47. Normal liver function tests. UA had 3+ leuk esterase with positive white cells and present hyaline casts. Toxicology was negative. IMPRESSION AND PLAN: One concern was whether her speech problems were out of proportion to her memory issues. I think that she as best I can tell is exhibiting some short-term memory problems and that her speech is relatively intact. I do not think she has a significant aphasia. In addition to her short- term memory, clearly she has no stroke on MRI scan. It is conceivable, although unlikely that she has ischemic disease causing some but not all of her symptoms. It would be reasonable to check a carotid Doppler and have her on a baby aspirin as well as check a fasting lipid profile. I discussed this with Dr. Unger and she is in agreement with this. I will be ordering and she will follow up this tomorrow and call me if there are any problems. I think it would be important for her to have followup as an outpatient for possible memory problems. It is possible that the memory issues are all from her medication regimen at home, which has now been simplified and she is off some of sedating medications. It could also be in part from her urinary tract infection, but the concern would be that she might have some baseline memory problems and that these things have exacerbated. I also recommended Dr. Unger that she be kept off her gabapentin unless she began more significantly complaining of burning pain in her feet. Physical Therapy should see her given her balance issues and make sure she is stable to go home. Thank you for sharing her case. [id number]/[facility] #: [id number] [place]
[2017-12-21] MEDS: Acetaminophen TAB* 325 MG PO SCH ×4 (00:19→23:00)
[2017-12-21] MEDS: Heparin VIAL(*) 5000 UNITS/ML VIAL (FIVE THOUSAND) SUBCUT SCH ×3 (05:35→23:00)
[2017-12-21] MEDS: Ondansetron INJ* 2 MG/ML VIAL IV PRN ×2 (05:36→21:33)
[2017-12-21] MEDS: Chlorthalidone TAB* 50 MG PO SCH (08:42)
[2017-12-21] MEDS: Spironolactone TAB* 25 MG PO SCH (08:43)
[2017-12-21] MEDS: Verapamil SR CAP* 180 MG PO SCH (08:43)
[2017-12-21] MEDS: Metoprolol Succinate XL TAB* 25 MG PO SCH (08:44)
[2017-12-21] MEDS: Cyanocobalamin TAB* 500 MCG PO SCH (08:44)
[2017-12-21] MEDS: Ramipril CAP* 10 MG PO SCH ×2 (08:45→21:33)
[2017-12-21] MEDS: Aspirin EC TAB* 81 MG TAB.EC PO SCH (08:45)
[2017-12-21] MEDS: Cholecalciferol TAB* 1000 UNITS PO SCH (08:46)
[2017-12-21] MEDS: DULoxetine DR CAP* 20 MG CAP.DR PO SCH (08:46)
[2017-12-21] MEDS: Polyethylene Glycol 3350* 17 GM PACKET PO SCH (08:48)
[2017-12-21 09:49] LABS: EGFR Non-African American 93.2 (>60)
[2017-12-21] MEDS: cefTRIAXone(*) 1 GM in NS 0.9% 50 ML* 50 ML IVPB SCH (11:39)
--- NOTE | 2017-12-21 12:14 | CONSULT ---
Consult Consult: PCCM Consult CC: AMS, hyponatremia HPI: 87F with htn, sarcoidosis, spinal stenosis, anxiety intially presented for a fall. She was treated and discharged. She returned on 12/16 for AMS and and possible medication overdose. Her head CT and MRI were negative. She was found to have a klebsiella uti and was started on ceftriaxone. The patients confusion and word finding difficulties persisted. Her initial sodium was was in the 130s but there was an acute drop to 119 today. The patient is confused and is unable to provide history. ROS - as per HPI PMHx - htn, sarcoidosis, spinal stenosis, anxiety PSHx - hystectomy, rotator cuff repain, cataract, back surgery All - nkda FamHx - dm, cancer SocHx - no drugs, etoh, tobacco PE Vital Signs: Temp Pulse Resp BP Pulse Ox 98.1 F 109 18 128/76 96 12/21/17 07:29 12/21/17 07:29 12/21/17 08:00 12/21/17 07:29 12/21/17 07:29 Gen - nad, confused Heent - ncat, eomi, perrl neck - no jvd, no thyromegaly cv - s1/s2, rrr lungs - cta, no wheeze abd - soft, nt, nd ext - no cce neuro - confused, difficulty word finding, moving all extremities I/O Intake & Output 12/19/17 12/20/17 12/21/17 12/22/17 06:59 06:59 06:59 06:59 Intake Total 720 556 898 20 Output Total 700 600 Balance 720 -144 298 20 Intake: IV Fluids 50 ABX - CEFTRIAXONE 50 IVPB 108 ABX - CEFTRIAXONE 108 Oral 720 556 740 20 Output: Urine 700 600 Other: Estimated Void Large # Bowel Movements 0 0 0 1 Estimated Stool Amount Small Medium # Voids 1 1 Labs Laboratory Results - last 24 hr 12/21/17 12/21/17 12/21/17 05:49 10:24 10:24 Sodium 119 L* D 118 L* Potassium 4.1 Chloride 92 L Carbon Dioxide 17 L Anion Gap 10 BUN 18 Creatinine 0.61 Est GFR ( Amer) 112.8 Est GFR (Non-Af Amer) 93.2 BUN/Creatinine Ratio 29.5 H Glucose 110 H Serum Osmolality 260 L Calcium 9.7 Total Bilirubin 0.70 AST 29 ALT 34 Alkaline Phosphatase 162 H C-Reactive Protein 1.79 Total Protein 5.5 L Albumin 3.4 Globulin 2.1 Albumin/Globulin Ratio 1.6 Triglycerides 142 Cholesterol 162 LDL Cholesterol 63 HDL Cholesterol 70.6 Lipase 94 H Cortisol Cancelled Imaging Head CT 12/16 IMPRESSION: #. No acute intracranial process evident. #. Mild involutional change and stigmata of chronic small vessel ischemic disease. MRI Brain 12/17 IMPRESSION: No acute intracranial abnormality. Renal Sono 12/18 IMPRESSION: RENAL CORTICAL PARENCHYMAL THINNING. NO HYDRONEPHROSIS OR NEPHROLITHIASIS. THE PREVOID BLADDER VOLUME IS A 199 ML. THE PATIENT IS UNABLE TO VOID SPONTANEOUSLY. Carotid Doppler 12/20 IMPRESSION: Atherosclerotic disease of the distal common carotid arteries and proximal internal carotid arteries causing mild stenosis of less than 50% bilaterally. Impression 87F with htn, sarcoidosis, spinal stenosis, anxiety presented with AMS, UTI, and hyponatremia Plan Neuro - AMS - 2/2 uti/hyponatremia - duloxetine can cause hyponatremia and siadh - will hold for now - neuro checks CV - htn - hold chlorthalidone in setting of hyponatremia - c/w bblocker, german, ccb, aldoactone Pulm - oxygenating well ID - uti - klebsiella in culture - c/w ceftriaxone - lactate normal on 12/16 GI - diet as tolerated Renal - hyponatremia - unclear etiology - will send urine lytes - hold chlorthalidone and duloxetine - will consider 3% vs fluid restriction pending urine studies Heme - monitor cbc Endo - tsh normal - check cortisol Lines - piv PPx - gi/dvt DNR Transfer to ICU Critical Care Time: 55 mins
[2017-12-21] MEDS ORDERED: Iohexol 350* (CONTRAST) 500 ML MDV IV ONE (15:53)
--- NOTE | 2017-12-21 16:56 | ECHO ---
Amended Report Patient: MARCIA WOODRUFF [facility] Rec#: [id number] : 1930 Date: 12/21/2017 Age: 87y Height: 163 cm / 64.2 in Weight: 66 kg / 145.5 lbs Sex: F BSA: 1.71 Room#: ICU 5 Admit Date#: 12/17/2017 Type: Inpatient Referring: Magda Unger MD Reading: Neftaly Hernandez MD Center Customer Service Associate: Latonia Boswell RD,RDMS Transthoracic Echocardiogram Indication: TIA BP: 128/76 HR: 97 Rhythm: NSR Findings History: LIMITED ECHO. HTN, sarcoidosis Technical Comments: The study quality is poor. The study was incomplete due to the patient's refusal to continue the exam. Left Ventricle: There is normal left ventricular systolic function. The estimated ejection fraction is 50-55%. Left Atrium: The left atrial chamber size is normal. Right Ventricle: The right ventricular chamber size and systolic function are within normal limits. Right Atrium: The right atrial cavity size is normal. The bubble study is negative. A patent foramen ovale is not demonstrated by agitated contrast. Aortic Valve: The aortic valve leaflets are mildly thickened. There is no evidence of aortic regurgitation. There is no evidence of aortic stenosis. Mitral Valve: There is mitral annular calcification. The mitral valve leaflets are mildly thickened. There is no evidence of mitral regurgitation. Tricuspid Valve: The tricuspid valve structure is not well visualized. Pulmonic Valve: The pulmonic valve structure is not well visualized. Pericardium: There is no significant pericardial effusion. Aorta: The aortic root is normal in size. Pulmonary Artery: The main pulmonary artery is not well visualized. Venous: The venous system is not well visualized. Contrast: Intravenous agitated saline contrast was used to assess intracardiac shunting. Conclusions The study quality is poor. The study was incomplete due to the patient's refusal to continue the exam. There is normal left ventricular systolic function. The estimated ejection fraction is 50-55%. A patent foramen ovale is not demonstrated by agitated contrast. There is no prior echocardiogram available to compare with at this time. Consider repeat study if patient able to more compliant with study performance in the future. Measurements Name Value Normal Range RVDdMajor (2D) 3.2 cm (2.2 - 4.4) RAd ISD 4CH 4 cm (3.4 - 4.9) RA (A4C)W 3.1 cm (2.9 - 4.6) IVSd (2D) 0.8 cm (0.6 - 1) LVPWd (2D) 0.8 cm (0.6 - 1) LVIDd (2D) 2.8 cm (3.6 - 5.4) Aortic Annulus 2 cm (1.4 - 2.6) Ao root diameter (2D) 3.1 cm (2.1 - 3.5) LAd ISD 4CH 5.1 cm (2.9 - 5.3) LA ISD 4CH W 4 cm (2.5 - 4.5)
[2017-12-21 18:32] LABS: EGFR Non-African American 74.6 (>60)
--- NOTE | 2017-12-21 22:45 | EEG ---
ELECTROENCEPHALOGRAPHY: DATE OF STUDY: PATIENT OF: Magda Unger MD CLINICAL PROBLEM: This is an 87-year-old woman who is evaluated for confusion and possible fluctuati ng aphasia. MEDICATIONS: Include: 1. Rocephin. 2. Heparin. 3. Altace. 4. Aspirin. 5. Hygroton. 6. Cymbalta. 7. Toprol. 8. MiraLAX. 9. Aldactone. 10. Calan. 11. Apresoline. 12. Zofran. REPORT: With the patient awake, background cerebral activity consists of moderate amplitude posterio r dominant 9 Hz rhythm. Prominent muscle movement artifacts are noted throughout. No clear-cut epil eptiform potentials, focal abnormalities, or major asymmetries of background are noted. CLINICAL IMPRESSION: This awake EEG within normal limits, prominent muscle movement artifact are pre sent. [id number]/[facility] #: [id number]
[2017-12-22 01:19] LABS: EGFR Non-African American 83.7 (>60)
[2017-12-22] MEDS ORDERED: Haloperidol INJ IV/IM* 5 MG/ML AMP IV SLOW PU ONE (01:45)
--- NOTE | 2017-12-22 04:07 | PN ---
PROGRESS NOTE: DATE OF VISIT: 12/21/2017. PATIENT OF: Dr. Jacobs; Dr. Unger.* HISTORY: This is a neurological followup on this 87-year-old woman with fluctuating confusion and aphasia. She was significantly worse this morning with difficulty speaking, which was out of proportion apparently to her confusion and had significant word finding problems and was not speaking in sentences. She has improved this afternoon. MEDICATIONS: 1. Spironolactone. 2. Verapamil. 3. Altace. 4. MiraLAX. 5. Toprol. 6. Apresoline p.r.n. PHYSICAL EXAMINATION: Temperature of 99.1, pulse 96, respirations 14, blood pressure 143/81. She was alert and oriented. She knew her name. She was conversant and spoke in full sentences. She remains confused and had trouble even following 1-step commands, but she would with coaxing, but then she would perseverate when asked to lift another different extremity for example. There was a minor fascial asymmetry with slightly less nasolabial fold on the right compared to the left, this was minimal. The subcranial nerves was intact. Motor exam revealed normal strength, 5/5. Chest clear. Cardiovascular: Regular rate and rhythm. Abdomen: Soft with positive bowel sounds. Her EEG did not show any seizure activity. Her CTA was requested and is not back yet. Of note, her sodium dropped from 130 yesterday to 119 today with LFTs otherwise being normal. She has an LDL of 63. We think that her fluctuating mental status and aphasia may be secondary to her urinary tract infection and hyponatremia. We are checking a CTA to make sure that there is no focal stenosis, but it would be unlikely to change her treatment now she has had a carotid Doppler, which did not show any carotid lesion of note. I spoke to Dr. Jacobs and called Dr. Unger to discuss the likelihood of herpes with her fluctuating course and her looking relatively good now, it is highly unlikely that this is herpes encephalitis. She is being watched. We would need to sedate her and since given that it is highly unlikely, we will hold off taping that. She will be followed clinically. Dr. Whitley will be picking up her case beginning this evening for Neurology. [id number]/[facility] #: [id number] [facility]
[2017-12-22] MEDS: Heparin VIAL(*) 5000 UNITS/ML VIAL (FIVE THOUSAND) SUBCUT SCH ×3 (05:31→23:05)
[2017-12-22 06:14] LABS: Hematocrit 43 % (35-47); Hemoglobin 15.7 g/dl (12.0-16.0); Mean Corpuscular HGB Conc 37 g/dl (31-36); Mean Corpuscular Hemoglobin 32 pg (27-31); Mean Corpuscular Volume 86 fL (80-97); Mean Platelet Volume 6.6 um3 (7.4-10.4); Platelet Count 343 10^3/ul (150-450); Red Blood Count 4.96 10^6/ul (4.00-5.40); Red Cell Distribution Width 13 % (10.5-15); White Blood Count 11.2 10^3/ul (3.5-10.8)
[2017-12-22 06:25] LABS: EGFR Non-African American 86.6 (>60)
[2017-12-22 06:35] LABS: ABS Basophils 0 10^3/ul (0-0.2); ABS Eosinophils 0 10^3/ul (0-0.6); ABS Lymphocytes 1.5 10^3/ul (1.0-4.8); ABS Monocytes 0.9 10^3/ul (0-0.8); ABS Neutrophils 8.7 10^3/ul (1.5-7.7); ABS Nucleated RBC 0 10^3/ul; Eosinophil % 0.4 % (0-6); Lymphocyte % 13.8 % (25-47); Nucleated Red Blood Cells % 0.1
--- NOTE | 2017-12-22 08:20 | PN ---
Subjective Date of Service: 12/22/17 - Neurology follow up Length of Stay: 6 Days Neurology is following for AMS Interval History: Overnight, no new issues. Sodium remains labile, down this am to 115. Confusion waxes and wanes. Per the nurse, yesterday, the patient was unintelligible. This am, she is talking, clearly understood, following commands , oriented to person and "[place]." No new issues overnight. No seizure like activity. Reviewing prior notes, it appears that her mental status is improved this am EEG: WNL CTA: Pending Echo: EF 55-60%. No PFO Carotid: Mild stenosis, less than 50% Objective Active Medications: Acetaminophen (Tylenol Tab*) 975 mg PO Q8H [facility] Last Admin: 12/21/17 23:00 Dose: 975 mg Aspirin (Aspirin Ec Tab*) 81 mg PO DAILY [facility] Last Admin: 12/21/17 08:45 Dose: 81 mg Cholecalciferol (Vitamin D Tab*) 1,000 units PO DAILY [facility] Last Admin: 12/21/17 08:46 Dose: 1,000 units Cyanocobalamin (Vitamin B12 Tab*) 500 mcg PO DAILY [facility] Last Admin: 12/21/17 08:44 Dose: 500 mcg Heparin Sodium (Porcine) (Heparin Vial(*)) 5,000 units SUBCUT Q8HR [facility] Last Admin: 12/22/17 05:31 Dose: 5,000 units Hydralazine HCl (Apresoline Iv*) 10 mg IV SLOW PU Q6H PRN PRN Reason: SBP > 200 Ceftriaxone Sodium 1 gm/ (Sodium Chloride) 50 mls @ 200 mls/hr IVPB Q24H [facility] Last Admin: 12/21/17 11:39 Dose: 200 mls/hr Metoprolol Succinate (Toprol Xl Tab*) 25 mg PO DAILY [facility] Last Admin: 12/21/17 08:44 Dose: 25 mg Ondansetron HCl (Zofran Inj*) 4 mg IV Q4H PRN PRN Reason: NAUSEA Last Admin: 12/21/17 21:33 Dose: 4 mg Phenazopyridine HCl (Pyridium Tab*) 100 mg PO TID PRN PRN Reason: BLADDER/UTI PAIN Polyethylene Glycol/Electrolytes (Miralax*) 17 gm PO DAILY [facility] Last Admin: 12/21/17 08:48 Dose: Not Given Ramipril (Altace Cap*) 10 mg PO BID [facility] Last Admin: 12/21/17 21:33 Dose: 10 mg Spironolactone (Aldactone Tab*) 12.5 mg PO DAILY [facility] Last Admin: 12/21/17 08:43 Dose: 12.5 mg Verapamil HCl (Calan Sr Cap*) 180 mg PO DAILY [facility] Last Admin: 12/21/17 08:43 Dose: 180 mg Vital Signs 12/21/17 12/21/17 12/21/17 11:44 12:36 12:45 Temperature 98.8 F Pulse Rate 94 94 93 Respiratory 20 19 23 Rate Blood Pressure 97/81 140/93 129/83 (mmHg) O2 Sat by Pulse 96 97 95 Oximetry 12/21/17 12/21/17 12/21/17 12:47 13:00 13:01 Temperature 99.1 F Pulse Rate 94 95 92 Respiratory 19 16 25 Rate Blood Pressure 140/93 (mmHg) O2 Sat by Pulse 87 95 96 Oximetry 12/21/17 12/21/17 12/21/17 13:02 13:16 13:31 Temperature Pulse Rate 93 95 91 Respiratory 21 15 Rate Blood Pressure 168/97 147/84 140/81 (mmHg) O2 Sat by Pulse 97 96 97 Oximetry 12/21/17 12/21/17 12/21/17 13:46 14:00 14:01 Temperature Pulse Rate 93 100 99 Respiratory 14 10 15 Rate Blood Pressure 133/99 159/72 (mmHg) O2 Sat by Pulse 97 97 96 Oximetry 12/21/17 12/21/17 12/21/17 14:16 14:31 14:45 Temperature Pulse Rate 97 95 90 Respiratory 14 15 22 Rate Blood Pressure 143/81 144/86 131/88 (mmHg) O2 Sat by Pulse 96 97 97 Oximetry 12/21/17 12/21/17 12/21/17 15:00 15:01 15:07 Temperature Pulse Rate 88 91 89 Respiratory 15 17 15 Rate Blood Pressure 157/89 135/106 (mmHg) O2 Sat by Pulse 96 96 97 Oximetry 12/21/17 12/21/17 12/21/17 15:58 16:00 16:31 Temperature Pulse Rate 94 96 94 Respiratory 21 23 12 Rate Blood Pressure 141/107 142/86 (mmHg) O2 Sat by Pulse 96 97 96 Oximetry 12/21/17 12/21/1712/21/18 17:00 17:01 17:17 Temperature Pulse Rate 96 101 100 Respiratory 26 14 22 Rate Blood Pressure 134/86 (mmHg) O2 Sat by Pulse 96 96 98 Oximetry 12/21/17 12/21/17 12/21/17 17:31 18:00 19:00 Temperature Pulse Rate 96 100 103 Respiratory 21 20 22 Rate Blood Pressure 146/92 (mmHg) O2 Sat by Pulse 96 99 94 Oximetry 12/21/17 12/21/17 12/21/17 19:43 19:50 19:55 Temperature Pulse Rate 99 Respiratory 24 16 24 Rate Blood Pressure 151/99 (mmHg) O2 Sat by Pulse 94 Oximetry 12/21/17 12/21/17 12/21/17 20:00 20:01 21:00 Temperature Pulse Rate 99 102 Respiratory 25 19 18 Rate Blood Pressure 155/97 (mmHg) O2 Sat by Pulse 92 94 Oximetry 12/21/17 12/21/17 12/21/17 21:08 21:42 22:00 Temperature Pulse Rate 96 99 96 Respiratory 19 18 22 Rate Blood Pressure 197/103 141/95 161/92 (mmHg) O2 Sat by Pulse 96 95 93 Oximetry 12/21/17 12/22/17 12/22/17 23:00 00:00 00:56 Temperature 99.2 F Pulse Rate 97 91 Respiratory 18 22 21 Rate Blood Pressure 150/89 (mmHg) O2 Sat by Pulse 96 93 Oximetry 12/22/17 12/22/17 12/22/17 01:00 02:00 02:01 Temperature Pulse Rate 94 94 102 Respiratory 22 21 13 Rate Blood Pressure 155/102 138/95 (mmHg) O2 Sat by Pulse 91 97 99 Oximetry 12/22/17 12/22/17 12/22/17 03:00 04:00 04:32 Temperature 98.5 F Pulse Rate 99 91 99 Respiratory 16 18 20 Rate Blood Pressure 138/102 159/93 (mmHg) O2 Sat by Pulse 97 95 95 Oximetry 12/22/17 12/22/17 12/22/17 05:00 05:32 05:57 Temperature Pulse Rate 100 Respiratory 16 18 18 Rate Blood Pressure 138/87 (mmHg) O2 Sat by Pulse 97 Oximetry 12/22/17 12/22/17 12/22/17 06:00 06:30 07:54 Temperature 97.3 F Pulse Rate 96 97 Respiratory 28 18 Rate Blood Pressure 166/110 (mmHg) O2 Sat by Pulse 93 96 Oximetry Intake and Output Last 24 Hours 12/20/17 12/21/17 12/22/17 12/23/17 06:59 06:59 06:59 06:59 Intake Total 556 898 140 Output Total 058 951 0272 Balance -144 298 -965 Weight 143 lb 15.39 oz Intake: IV Fluids 50 ABX - CEFTRIAXONE 50 IVPB 108 ABX - CEFTRIAXONE 108 Oral 556 740 140 Output: Urine 700 600 Yuen 1105 Other: # Bowel Movements 0 0 1 Estimated Stool Amount Small Medium # Voids 1 Oxygen Devices in Use Now: None Neurology Exam: General: Sleeping but awakens easily, pleasant, smiles Oriented "[place]" only HEENT: Normocephalic, atraumatic, MM slightly dry Neck: Supple, no meningismus Chest: Clear to auscultation bilaterally Cardiovascular: Mildly tachycardic, rhythm without murmurs, rubs, gallops Abdomen: Soft, nontender/nondistended Extremities: No significant edemam, Scattered bruising Neurological Findings: Following commands Speech: fluent without dysarthria Cranial Nerve: PEERL, EOM intact, VFF, no nystagmus, face symmetric bilaterally , facial sensation intact, hearing intact to finger rub bilaterally, palate elevates symmetrically, tongue midline Motor: SMAE antigravity with good resistance, no focal weakness, no drift, normal tone Sensation: WD to pain X 4, LT intact X 4 Deep Tendon Reflex: Difficult to assess, down throughout No tremors appreciated, no myoclonus Result Diagrams: 12/22/17 05:50 12/22/17 05:50 Microbiology and Other Data: Microbiology 12/21/17 12:40 Nasal Screen MRSA (PCR) - Final Nasal Mrsa Not Detected 12/19/17 16:45 Urine Culture - Final Urine Klebsiella Ornithinolytica Assessment/Plan 87 year old with a history of waxing and waning mental status and aphasia. Improved this am. Suspect delirium secondary to infections (UTI) and hyponatremia. 1. AMS: continues to was and wane but better this am. I suspect an acute delirium. Continue medical management. May continue to wax and wane. My suspicion for underlying meningitis/encephalitis is very low at this point. I believe LP would be very low yield and she is improving. 2. UTI: On abx 3. Hyponatremia: etiology unclear. Primary team is evaluating and treating. I will continue to follow along
[2017-12-22] MEDS ORDERED: Magnesium Sulfate IV* 3 GM in NS 0.9% 100 ML* 100 ML IVPB ONE (08:30)
[2017-12-22] MEDS ORDERED: NS 0.9% 1000 ML* 1,000 ML IV SCH (08:30)
--- NOTE | 2017-12-22 08:37 | PN ---
Date of Service: 12/22/17 Critical Care Services: 87F with htn, sarcoidosis, spinal stenosis, anxiety presented with AMS, UTI, and hyponatremia. 12/22: Urine lytes suggestive of SIADH, however, sodium dropped further with fluid restriction. Vital Signs: Temp Pulse Resp BP SpO2 FiO2 97.3 F 97 18 166/110 96 12/22/17 07:54 12/22/17 06:30 12/22/17 06:30 12/22/17 06:30 12/22/17 06:30 Physical Exam: Gen - nad, confused Heent - ncat, eomi, perrl neck - no jvd, no thyromegaly cv - s1/s2, rrr lungs - cta, no wheeze abd - soft, nt, nd ext - no cce neuro - confused, difficulty word finding, moving all extremities Fluid Balance (Past 24 Hours): I= O= Net Intake & Output 12/20/17 12/21/17 12/22/17 12/23/17 06:59 06:59 06:59 06:59 Intake Total 556 898 140 Output Total 051 530 7817 Balance -144 298 -965 Weight 65.3 kg Intake: IV Fluids 50 ABX - CEFTRIAXONE 50 IVPB 108 ABX - CEFTRIAXONE 108 Oral 556 740 140 Output: Urine 700 600 Yuen 1105 Other: # Bowel Movements 0 0 1 Estimated Stool Amount Small Medium # Voids 1 Labs: Laboratory Results - last 24 hr 12/21/17 12/21/17 12/21/17 05:49 10:24 10:24 WBC RBC Hgb Hct MCV MCH MCHC RDW Plt Count MPV Neut % (Auto) Lymph % (Auto) Drew % (Auto) Eos % (Auto) Baso % (Auto) Absolute Neuts (auto) Absolute Lymphs (auto) Absolute Monos (auto) Absolute Eos (auto) Absolute Basos (auto) Absolute Nucleated RBC Nucleated RBC % Sodium 119 L* D 118 L* Potassium 4.1 Chloride 92 L Carbon Dioxide 17 L Anion Gap 10 BUN 18 Creatinine 0.61 Est GFR ( Amer) 112.8 Est GFR (Non-Af Amer) 93.2 BUN/Creatinine Ratio 29.5 H Glucose 110 H Serum Osmolality 260 L Calcium 9.7 Magnesium Total Bilirubin 0.70 AST 29 ALT 34 Alkaline Phosphatase 162 H C-Reactive Protein 1.79 Total Protein 5.5 L Albumin 3.4 Globulin 2.1 Albumin/Globulin Ratio 1.6 Triglycerides 142 Cholesterol 162 LDL Cholesterol 63 HDL Cholesterol 70.6 Lipase 94 H Cortisol Cancelled 16.21 Urine Osmolality Ur Random Creatinine Ur Random Sodium Ur Random Urea Nitrogn 12/21/17 12/21/17 12/21/17 12:40 12:40 12:40 WBC RBC Hgb Hct MCV MCH MCHC RDW Plt Count MPV Neut % (Auto) Lymph % (Auto) Drew % (Auto) Eos % (Auto) Baso % (Auto) Absolute Neuts (auto) Absolute Lymphs (auto) Absolute Monos (auto) Absolute Eos (auto) Absolute Basos (auto) Absolute Nucleated RBC Nucleated RBC % Sodium Potassium Chloride Carbon Dioxide Anion Gap BUN Creatinine Est GFR ( Amer) Est GFR (Non-Af Amer) BUN/Creatinine Ratio Glucose Serum Osmolality Calcium Magnesium Total Bilirubin AST ALT Alkaline Phosphatase C-Reactive Protein Total Protein Albumin Globulin Albumin/Globulin Ratio Triglycerides Cholesterol LDL Cholesterol HDL Cholesterol Lipase Cortisol Urine Osmolality 603 Ur Random Creatinine 76.97 Ur Random Sodium Ur Random Urea Nitrogn 591 12/21/17 12/21/17 12/22/17 12:40 18:00 00:50 WBC RBC Hgb Hct MCV MCH MCHC RDW Plt Count MPV Neut % (Auto) Lymph % (Auto) Drew % (Auto) Eos % (Auto) Baso % (Auto) Absolute Neuts (auto) Absolute Lymphs (auto) Absolute Monos (auto) Absolute Eos (auto) Absolute Basos (auto) Absolute Nucleated RBC Nucleated RBC % Sodium 119 L* 116 L* Potassium 4.3 4.3 Chloride 88 L 88 L Carbon Dioxide 24 19 L Anion Gap 7 9 BUN 19 18 Creatinine 0.74 0.67 Est GFR ( Amer) 90.3 101.2 Est GFR (Non-Af Amer) 74.6 83.7 BUN/Creatinine Ratio 25.7 H 26.9 H Glucose 114 H 118 H Serum Osmolality Calcium 10.1 10.1 Magnesium Total Bilirubin AST ALT Alkaline Phosphatase C-Reactive Protein Total Protein Albumin Globulin Albumin/Globulin Ratio Triglycerides Cholesterol LDL Cholesterol HDL Cholesterol Lipase Cortisol Urine Osmolality Ur Random Creatinine Ur Random Sodium 122 Ur Random Urea Nitrogn 12/22/17 12/22/17 05:50 05:50 WBC 11.2 H RBC 4.96 Hgb 15.7 Hct 43 MCV 86 MCH 32 H MCHC 37 H RDW 13 Plt Count 343 MPV 6.6 L Neut % (Auto) 77.3 Lymph % (Auto) 13.8 L Drew % (Auto) 8.1 H Eos % (Auto) 0.4 Baso % (Auto) 0.4 Absolute Neuts (auto) 8.7 H Absolute Lymphs (auto) 1.5 Absolute Monos (auto) 0.9 H Absolute Eos (auto) 0 Absolute Basos (auto) 0 Absolute Nucleated RBC 0 Nucleated RBC % 0.1 Sodium 115 L* Potassium 4.1 Chloride 88 L Carbon Dioxide 18 L Anion Gap 9 BUN 19 Creatinine 0.65 Est GFR ( Amer) 104.8 Est GFR (Non-Af Amer) 86.6 BUN/Creatinine Ratio 29.2 H Glucose 119 H Serum Osmolality Calcium 9.7 Magnesium 1.6 L Total Bilirubin AST ALT Alkaline Phosphatase C-Reactive Protein Total Protein Albumin Globulin Albumin/Globulin Ratio Triglycerides Cholesterol LDL Cholesterol HDL Cholesterol Lipase Cortisol Urine Osmolality Ur Random Creatinine Ur Random Sodium Ur Random Urea Nitrogn Studies: Head CT 12/16 IMPRESSION: #. No acute intracranial process evident. #. Mild involutional change and stigmata of chronic small vessel ischemic disease. MRI Brain 12/17 IMPRESSION: No acute intracranial abnormality. Renal Sono 12/18 IMPRESSION: RENAL CORTICAL PARENCHYMAL THINNING. NO HYDRONEPHROSIS OR NEPHROLITHIASIS. THE PREVOID BLADDER VOLUME IS A 199 ML. THE PATIENT IS UNABLE TO VOID SPONTANEOUSLY. Carotid Doppler 12/20 IMPRESSION: Atherosclerotic disease of the distal common carotid arteries and proximal internal carotid arteries causing mild stenosis of less than 50% bilaterally. Impression: 87F with htn, sarcoidosis, spinal stenosis, anxiety presented with AMS, UTI, and hyponatremia Plan: Neuro - AMS - 2/2 uti/hyponatremia - duloxetine can cause hyponatremia and siadh - on hold - neuro checks CV - htn - hold chlorthalidone in setting of hyponatremia - c/w bblocker, german, ccb, aldoactone Pulm - oxygenating well ID - uti - klebsiella in culture - c/w ceftriaxone - lactate normal on 12/16 GI - diet as tolerated Renal - hyponatremia - urine lytes suggestive of SIADH however sodium continues to drop - trial of normal saline - repeat bmp at 12 Heme - monitor cbc Endo - tsh normal - check cortisol Lines - piv PPx - gi/dvt DNR Critical Care Time: 40 mins
[2017-12-22] MEDS: Acetaminophen TAB* 325 MG PO SCH ×2 (09:23→19:46)
[2017-12-22] MEDS: Metoprolol Succinate XL TAB* 25 MG PO SCH (09:25)
[2017-12-22] MEDS: Spironolactone TAB* 25 MG PO SCH (09:25)
[2017-12-22] MEDS: Cyanocobalamin TAB* 500 MCG PO SCH (09:26)
[2017-12-22] MEDS: Ramipril CAP* 10 MG PO SCH ×2 (09:26→23:05)
[2017-12-22] MEDS: Aspirin EC TAB* 81 MG TAB.EC PO SCH (09:26)
[2017-12-22] MEDS: Cholecalciferol TAB* 1000 UNITS PO SCH (09:43)
[2017-12-22] MEDS: Verapamil SR CAP* 180 MG PO SCH (12:00)
[2017-12-22] MEDS: cefTRIAXone(*) 1 GM in NS 0.9% 50 ML* 50 ML IVPB SCH (12:42)
[2017-12-22] MEDS: Polyethylene Glycol 3350* 17 GM PACKET PO SCH (12:42)
[2017-12-22 14:58] LABS: EGFR Non-African American 112.1 (>60)
[2017-12-22] MEDS: Al Hydrox/Mg Hydrox/Simet LIQ* 30 ML UDC PO PRN (16:04)
[2017-12-22] MEDS: Phenazopyridine TAB* 100 MG PO PRN (18:15)
[2017-12-23] MEDS: Acetaminophen TAB* 325 MG PO SCH ×3 (02:02→17:31)
[2017-12-23 04:48] LABS: Hematocrit 44 % (35-47); Hemoglobin 15.2 g/dl (12.0-16.0); Mean Corpuscular HGB Conc 35 g/dl (31-36); Mean Corpuscular Hemoglobin 31 pg (27-31); Mean Corpuscular Volume 90 fL (80-97); Mean Platelet Volume 6.5 um3 (7.4-10.4); Platelet Count 273 10^3/ul (150-450); Red Blood Count 4.87 10^6/ul (4.00-5.40); Red Cell Distribution Width 13 % (10.5-15); White Blood Count 9.5 10^3/ul (3.5-10.8)
[2017-12-23 04:49] LABS: ABS Neutrophils 7.3 10^3/ul (1.5-7.7)
[2017-12-23 05:01] LABS: EGFR Non-African American 112.1 (>60)
[2017-12-23 05:14] LABS: ABS Basophils 0 10^3/ul (0-0.2); ABS Eosinophils 0.1 10^3/ul (0-0.6); ABS Lymphocytes 1.3 10^3/ul (1.0-4.8); ABS Monocytes 0.8 10^3/ul (0-0.8); ABS Nucleated RBC 0 10^3/ul; Eosinophil % 0.9 % (0-6); Lymphocyte % 13.2 % (25-47); Nucleated Red Blood Cells % 0.1
[2017-12-23] MEDS: Omeprazole CAP* 20 MG PO SCH (06:23)
[2017-12-23] MEDS: Heparin VIAL(*) 5000 UNITS/ML VIAL (FIVE THOUSAND) SUBCUT SCH ×3 (06:23→20:54)
--- NOTE | 2017-12-23 07:22 | PN ---
Date of Service: 12/23/17 Critical Care Services: 87F with htn, sarcoidosis, spinal stenosis, anxiety presented with AMS, UTI, and hyponatremia. 12/22: Urine lytes suggestive of SIADH, however, sodium dropped further with fluid restriction. 12/23: Appears to be responding to IV hydration. Sodium 120 today. Mental status imrpoving. Vital Signs: Temp Pulse Resp BP SpO2 FiO2 97.3 F 84 20 155/108 95 12/23/17 03:12 12/23/17 06:01 12/23/17 06:24 12/23/17 06:01 12/23/17 06:01 Physical Exam: Gen - nad, confused Heent - ncat, eomi, perrl neck - no jvd, no thyromegaly cv - s1/s2, rrr lungs - cta, no wheeze abd - soft, nt, nd ext - no cce neuro - confused, improving mental status, moving all extremities Fluid Balance (Past 24 Hours): I= O= Net Intake & Output 12/21/17 12/22/17 12/23/17 12/24/17 06:59 06:59 06:59 06:59 Intake Total 597 680 3887 Output Total 600 1105 1897 Balance 298 -965 445 Weight 65.3 kg 67.5 kg Intake: IV Fluids 50 2047 ABX - CEFTRIAXONE 50 NS (0.9%) 2047 IVPB 108 175 ABX - CEFTRIAXONE 108 NS (0.9%) 175 Oral 740 140 120 Output: Urine 600 Yuen 1105 1897 Other: # Bowel Movements 0 1 Estimated Stool Amount Small Medium Medium Labs: Laboratory Results - last 24 hr 12/22/17 12/22/17 12/22/17 07:40 07:40 14:05 WBC RBC Hgb Hct MCV MCH MCHC RDW Plt Count MPV Neut % (Auto) Lymph % (Auto) Parker % (Auto) Eos % (Auto) Baso % (Auto) Absolute Neuts (auto) Absolute Lymphs (auto) Absolute Monos (auto) Absolute Eos (auto) Absolute Basos (auto) Absolute Nucleated RBC Nucleated RBC % Sodium 119 L* Potassium TNP Chloride 93 L Carbon Dioxide 20 L Anion Gap 6 BUN 16 Creatinine 0.52 Est GFR ( Amer) 135.6 Est GFR (Non-Af Amer) 112.1 BUN/Creatinine Ratio 30.8 H Glucose 111 H Calcium 8.5 L Magnesium Total Bilirubin 0.50 Direct Bilirubin TNP Indirect Bilirubin TNP AST TNP ALT 34 Alkaline Phosphatase 133 H Total Protein 5.1 L Albumin 3.0 L Globulin 2.1 Albumin/Globulin Ratio 1.4 Lipase 63 Urine Osmolality 549 Ur Random Creatinine 58.95 Ur Random Sodium 105 12/22/17 12/23/17 12/23/17 20:16 04:10 04:10 WBC 9.5 RBC 4.87 Hgb 15.2 Hct 44 MCV 90 MCH 31 MCHC 35 RDW 13 Plt Count 273 MPV 6.5 L Neut % (Auto) 77.1 Lymph % (Auto) 13.2 L Parker % (Auto) 8.7 H Eos % (Auto) 0.9 Baso % (Auto) 0.1 Absolute Neuts (auto) 7.3 Absolute Lymphs (auto) 1.3 Absolute Monos (auto) 0.8 Absolute Eos (auto) 0.1 Absolute Basos (auto) 0 Absolute Nucleated RBC 0 Nucleated RBC % 0.1 Sodium 116 L* 120 L Potassium 4.2 4.1 Chloride 94 L Carbon Dioxide 20 L Anion Gap 6 BUN 12 Creatinine 0.52 Est GFR ( Amer) 135.6 Est GFR (Non-Af Amer) 112.1 BUN/Creatinine Ratio 23.1 H Glucose 99 Calcium 9.2 Magnesium 1.9 Total Bilirubin Direct Bilirubin 0.10 Indirect Bilirubin AST 29 ALT Alkaline Phosphatase Total Protein Albumin Globulin Albumin/Globulin Ratio Lipase Urine Osmolality Ur Random Creatinine Ur Random Sodium Studies: Head CT 12/16 IMPRESSION: #. No acute intracranial process evident. #. Mild involutional change and stigmata of chronic small vessel ischemic disease. MRI Brain 12/17 IMPRESSION: No acute intracranial abnormality. Renal Sono 12/18 IMPRESSION: RENAL CORTICAL PARENCHYMAL THINNING. NO HYDRONEPHROSIS OR NEPHROLITHIASIS. THE PREVOID BLADDER VOLUME IS A 199 ML. THE PATIENT IS UNABLE TO VOID SPONTANEOUSLY. Carotid Doppler 12/20 IMPRESSION: Atherosclerotic disease of the distal common carotid arteries and proximal internal carotid arteries causing mild stenosis of less than 50% bilaterally. Impression: 87F with htn, sarcoidosis, spinal stenosis, anxiety presented with AMS, UTI, and hyponatremia Plan: Neuro - AMS - 2/2 uti/hyponatremia - duloxetine can cause hyponatremia and siadh - on hold - neuro checks CV - htn - hold chlorthalidone/aldactone in setting of hyponatremia - c/w bblocker, german, ccb Pulm - oxygenating well ID - uti - klebsiella in culture - c/w ceftriaxone - lactate normal on 12/16 GI - diet as tolerated Renal - hyponatremia - urine lytes suggestive of SIADH however sodium continued to drop with fluid restriction - appears to be improving with normal saline - continue to monitor bmp Heme - monitor cbc Endo - tsh normal - cortisol ok Lines - piv PPx - gi/dvt DNR Critical Care Time: 45 mins
[2017-12-23] MEDS: Metoprolol Succinate XL TAB* 25 MG PO SCH (09:58)
[2017-12-23] MEDS: Cyanocobalamin TAB* 500 MCG PO SCH (09:58)
[2017-12-23] MEDS: Aspirin EC TAB* 81 MG TAB.EC PO SCH (09:58)
[2017-12-23] MEDS: Cholecalciferol TAB* 1000 UNITS PO SCH (09:58)
[2017-12-23] MEDS: Verapamil SR CAP* 180 MG PO SCH (09:58)
[2017-12-23] MEDS: Ramipril CAP* 10 MG PO SCH ×2 (09:58→20:54)
[2017-12-23] MEDS: Polyethylene Glycol 3350* 17 GM PACKET PO SCH (09:59)
[2017-12-23] MEDS: cefTRIAXone(*) 1 GM in NS 0.9% 50 ML* 50 ML IVPB SCH (10:52)
[2017-12-23] MEDS: Al Hydrox/Mg Hydrox/Simet LIQ* 30 ML UDC PO PRN (14:30)
[2017-12-24] MEDS: Acetaminophen TAB* 325 MG PO SCH ×3 (01:19→17:55)
[2017-12-24] MEDS: Omeprazole CAP* 20 MG PO SCH (05:50)
[2017-12-24] MEDS: Heparin VIAL(*) 5000 UNITS/ML VIAL (FIVE THOUSAND) SUBCUT SCH ×3 (05:51→21:47)
[2017-12-24 06:39] LABS: Hematocrit 40 % (35-47); Hemoglobin 14.1 g/dl (12.0-16.0); Mean Corpuscular HGB Conc 36 g/dl (31-36); Mean Corpuscular Hemoglobin 31 pg (27-31); Mean Corpuscular Volume 87 fL (80-97); Mean Platelet Volume 6.5 um3 (7.4-10.4); Platelet Count 322 10^3/ul (150-450); Red Blood Count 4.53 10^6/ul (4.00-5.40); Red Cell Distribution Width 13 % (10.5-15); White Blood Count 9.2 10^3/ul (3.5-10.8)
[2017-12-24 06:55] LABS: EGFR Non-African American 107.3 (>60)
[2017-12-24 07:53] LABS: ABS Basophils 0 10^3/ul (0-0.2); ABS Eosinophils 0.1 10^3/ul (0-0.6); ABS Lymphocytes 1.3 10^3/ul (1.0-4.8); ABS Monocytes 0.9 10^3/ul (0-0.8); ABS Neutrophils 6.8 10^3/ul (1.5-7.7); ABS Nucleated RBC 0 10^3/ul; Eosinophil % 1.1 % (0-6); Lymphocyte % 14.6 % (25-47); Nucleated Red Blood Cells % 0
[2017-12-24] MEDS: Polyethylene Glycol 3350* 17 GM PACKET PO SCH (10:10)
[2017-12-24] MEDS: Metoprolol Succinate XL TAB* 25 MG PO SCH (10:13)
[2017-12-24] MEDS: Verapamil SR CAP* 180 MG PO SCH (10:13)
[2017-12-24] MEDS: Ramipril CAP* 10 MG PO SCH ×2 (10:13→21:46)
[2017-12-24] MEDS: Cyanocobalamin TAB* 500 MCG PO SCH (10:14)
[2017-12-24] MEDS: Aspirin EC TAB* 81 MG TAB.EC PO SCH (10:14)
[2017-12-24] MEDS: Cholecalciferol TAB* 1000 UNITS PO SCH (10:14)
[2017-12-24] MEDS: cefTRIAXone(*) 1 GM in NS 0.9% 50 ML* 50 ML IVPB SCH (12:11)
[2017-12-24] MEDS: Al Hydrox/Mg Hydrox/Simet LIQ* 30 ML UDC PO PRN ×2 (12:11→17:54)
[2017-12-24] MEDS: Ondansetron INJ* 2 MG/ML VIAL IV PRN (12:11)
[2017-12-24] MEDS: Ibuprofen TAB* 400 MG PO PRN ×2 (15:03→21:46)
[2017-12-24] MEDS: Phenazopyridine TAB* 100 MG PO PRN (21:46)
[2017-12-25] MEDS ORDERED: Gabapentin CAP(*) 300 MG ONE
[2017-12-25] MEDS: Acetaminophen TAB* 325 MG PO SCH ×4 (00:09→23:37)
[2017-12-25] MEDS: Gabapentin CAP(*) 300 MG PO PRN ×2 (00:10→23:06)
[2017-12-25 06:02] LABS: EGFR Non-African American 80.9 (>60)
[2017-12-25] MEDS: Heparin VIAL(*) 5000 UNITS/ML VIAL (FIVE THOUSAND) SUBCUT SCH ×3 (06:53→22:51)
[2017-12-25] MEDS: Omeprazole CAP* 20 MG PO SCH (06:53)
[2017-12-25] MEDS: Cholecalciferol TAB* 1000 UNITS PO SCH (08:59)
[2017-12-25] MEDS: Cyanocobalamin TAB* 500 MCG PO SCH (08:59)
[2017-12-25] MEDS: Aspirin EC TAB* 81 MG TAB.EC PO SCH (08:59)
[2017-12-25] MEDS: Polyethylene Glycol 3350* 17 GM PACKET PO SCH (09:00)
[2017-12-25] MEDS: Verapamil SR CAP* 180 MG PO SCH (09:00)
[2017-12-25] MEDS: Metoprolol Succinate XL TAB* 25 MG PO SCH (09:00)
[2017-12-25] MEDS: Ramipril CAP* 10 MG PO SCH ×2 (09:00→22:54)
[2017-12-25] MEDS: cefTRIAXone(*) 1 GM in NS 0.9% 50 ML* 50 ML IVPB SCH (12:37)
[2017-12-25] MEDS: Potassium & Sodium Phos 250MG* = 1 PACKET PO SCH ×2 (13:07→22:49)
[2017-12-25] MEDS: Ibuprofen TAB* 400 MG PO PRN ×2 (13:08→20:43)
[2017-12-26] MEDS: Heparin VIAL(*) 5000 UNITS/ML VIAL (FIVE THOUSAND) SUBCUT SCH ×3 (06:56→21:48)
[2017-12-26] MEDS: Omeprazole CAP* 20 MG PO SCH (06:57)
[2017-12-26] MEDS: Verapamil SR CAP* 180 MG PO SCH (08:37)
[2017-12-26] MEDS: Polyethylene Glycol 3350* 17 GM PACKET PO SCH (08:37)
[2017-12-26] MEDS: Ramipril CAP* 10 MG PO SCH ×2 (08:37→21:48)
[2017-12-26] MEDS: Metoprolol Succinate XL TAB* 25 MG PO SCH (08:38)
[2017-12-26] MEDS: Acetaminophen TAB* 325 MG PO SCH ×2 (08:38→15:20)
[2017-12-26] MEDS: Cholecalciferol TAB* 1000 UNITS PO SCH (08:38)
[2017-12-26] MEDS: Aspirin EC TAB* 81 MG TAB.EC PO SCH (08:38)
[2017-12-26] MEDS: Potassium & Sodium Phos 250MG* = 1 PACKET PO SCH ×3 (08:38→21:48)
[2017-12-26] MEDS: Cyanocobalamin TAB* 500 MCG PO SCH (08:39)
[2017-12-26 10:35] LABS: EGFR Non-African American 89.8 (>60)
[2017-12-26] MEDS: cefTRIAXone(*) 1 GM in NS 0.9% 50 ML* 50 ML IVPB SCH (10:59)
[2017-12-26] MEDS: Ibuprofen TAB* 400 MG PO PRN (11:00)
[2017-12-26] MEDS: Ondansetron INJ* 2 MG/ML VIAL IV PRN (21:48)
[2017-12-27] MEDS: Acetaminophen TAB* 325 MG PO SCH ×3 (01:09→17:29)
[2017-12-27] MEDS: Ondansetron INJ* 2 MG/ML VIAL IV PRN (04:52)
[2017-12-27] MEDS: Omeprazole CAP* 20 MG PO SCH (05:00)
[2017-12-27] MEDS: Heparin VIAL(*) 5000 UNITS/ML VIAL (FIVE THOUSAND) SUBCUT SCH ×3 (05:00→20:51)
[2017-12-27 06:12] LABS: EGFR Non-African American 96.9 (>60)
[2017-12-27] MEDS: Verapamil SR CAP* 180 MG PO SCH (08:47)
[2017-12-27] MEDS: Metoprolol Succinate XL TAB* 25 MG PO SCH (08:48)
[2017-12-27] MEDS: Ramipril CAP* 10 MG PO SCH ×2 (08:48→20:49)
[2017-12-27] MEDS: Cyanocobalamin TAB* 500 MCG PO SCH (08:48)
[2017-12-27] MEDS: Cholecalciferol TAB* 1000 UNITS PO SCH (08:48)
[2017-12-27] MEDS: Potassium & Sodium Phos 250MG* = 1 PACKET PO SCH ×3 (08:49→20:51)
[2017-12-27] MEDS: Aspirin EC TAB* 81 MG TAB.EC PO SCH (08:49)
[2017-12-27] MEDS: Polyethylene Glycol 3350* 17 GM PACKET PO SCH (08:49)
[2017-12-27] MEDS: Ibuprofen TAB* 400 MG PO PRN ×2 (12:14→21:11)
[2017-12-27] MEDS: Gabapentin CAP(*) 300 MG PO PRN (21:36)
[2017-12-28] MEDS: Acetaminophen TAB* 325 MG PO SCH ×3 (00:01→16:08)
[2017-12-28] MEDS: Omeprazole CAP* 20 MG PO SCH (05:11)
[2017-12-28] MEDS: Heparin VIAL(*) 5000 UNITS/ML VIAL (FIVE THOUSAND) SUBCUT SCH ×3 (05:11→21:29)
[2017-12-28 07:36] LABS: EGFR Non-African American 85.1 (>60)
[2017-12-28] MEDS: Metoprolol Succinate XL TAB* 25 MG PO SCH (10:12)
[2017-12-28] MEDS: Gabapentin CAP(*) 300 MG PO PRN ×2 (10:12→21:34)
[2017-12-28] MEDS: Ramipril CAP* 10 MG PO SCH ×2 (10:12→21:29)
[2017-12-28] MEDS: Verapamil SR CAP* 180 MG PO SCH (10:12)
[2017-12-28] MEDS: Cholecalciferol TAB* 1000 UNITS PO SCH (10:12)
[2017-12-28] MEDS: Cyanocobalamin TAB* 500 MCG PO SCH (10:12)
[2017-12-28] MEDS: Aspirin EC TAB* 81 MG TAB.EC PO SCH (10:12)
[2017-12-28] MEDS: Polyethylene Glycol 3350* 17 GM PACKET PO SCH (10:13)
[2017-12-28] MEDS: Potassium & Sodium Phos 250MG* = 1 PACKET PO SCH (10:13)
[2017-12-29] MEDS: Acetaminophen TAB* 325 MG PO SCH ×3 (00:10→15:54)
[2017-12-29] MEDS: Ibuprofen TAB* 400 MG PO PRN (04:36)
[2017-12-29] MEDS: Heparin VIAL(*) 5000 UNITS/ML VIAL (FIVE THOUSAND) SUBCUT SCH ×3 (05:37→20:03)
[2017-12-29] MEDS: Omeprazole CAP* 20 MG PO SCH (05:39)
[2017-12-29] MEDS: Polyethylene Glycol 3350* 17 GM PACKET PO SCH (09:24)
[2017-12-29] MEDS: Aspirin EC TAB* 81 MG TAB.EC PO SCH (09:24)
[2017-12-29] MEDS: Gabapentin CAP(*) 300 MG PO PRN ×2 (09:24→21:44)
[2017-12-29] MEDS: Cyanocobalamin TAB* 500 MCG PO SCH (09:25)
[2017-12-29] MEDS: Cholecalciferol TAB* 1000 UNITS PO SCH (09:25)
[2017-12-29] MEDS: Verapamil SR CAP* 180 MG PO SCH (09:25)
[2017-12-29] MEDS: Ramipril CAP* 10 MG PO SCH ×2 (09:25→20:03)
[2017-12-29] MEDS: Metoprolol Succinate XL TAB* 25 MG PO SCH (09:25)
[2017-12-29] MEDS: Al Hydrox/Mg Hydrox/Simet LIQ* 30 ML UDC PO PRN (20:03)
[2017-12-30] MEDS: Acetaminophen TAB* 325 MG PO SCH ×3 (01:39→14:36)
[2017-12-30] MEDS: Heparin VIAL(*) 5000 UNITS/ML VIAL (FIVE THOUSAND) SUBCUT SCH ×3 (05:05→20:50)
[2017-12-30] MEDS: Omeprazole CAP* 20 MG PO SCH (05:05)
[2017-12-30 07:02] LABS: EGFR Non-African American 91.5 (>60)
[2017-12-30] MEDS: Cholecalciferol TAB* 1000 UNITS PO SCH (10:46)
[2017-12-30] MEDS: Gabapentin CAP(*) 300 MG PO PRN (10:46)
[2017-12-30] MEDS: Verapamil SR CAP* 180 MG PO SCH (10:46)
[2017-12-30] MEDS: Metoprolol Succinate XL TAB* 25 MG PO SCH (10:46)
[2017-12-30] MEDS: Aspirin EC TAB* 81 MG TAB.EC PO SCH (10:47)
[2017-12-30] MEDS: Ramipril CAP* 10 MG PO SCH ×2 (10:47→20:50)
[2017-12-30] MEDS: Cyanocobalamin TAB* 500 MCG PO SCH (10:47)
[2017-12-30] MEDS: Polyethylene Glycol 3350* 17 GM PACKET PO SCH (10:47)
[2017-12-30] MEDS: Gabapentin CAP(*) 300 MG PO SCH ×2 (14:36→20:50)
[2017-12-30] MEDS: Ibuprofen TAB* 400 MG PO PRN (16:57)
[2017-12-31] MEDS: Ibuprofen TAB* 400 MG PO PRN (01:25)
[2017-12-31] MEDS: Acetaminophen TAB* 325 MG PO SCH ×2 (01:25→08:54)
[2017-12-31 06:00] LABS: Hematocrit 33 % (35-47); Hemoglobin 11.4 g/dl (12.0-16.0); Mean Corpuscular HGB Conc 34 g/dl (31-36); Mean Corpuscular Hemoglobin 31 pg (27-31); Mean Corpuscular Volume 91 fL (80-97); Mean Platelet Volume 6.6 um3 (7.4-10.4); Platelet Count 241 10^3/ul (150-450); Red Blood Count 3.64 10^6/ul (4.00-5.40); Red Cell Distribution Width 14 % (10.5-15); White Blood Count 7.1 10^3/ul (3.5-10.8)
[2017-12-31] MEDS: Heparin VIAL(*) 5000 UNITS/ML VIAL (FIVE THOUSAND) SUBCUT SCH ×2 (06:25→13:56)
[2017-12-31] MEDS: Omeprazole CAP* 20 MG PO SCH (06:25)
[2017-12-31] MEDS: Metoprolol Succinate XL TAB* 25 MG PO SCH (08:54)
[2017-12-31] MEDS: Verapamil SR CAP* 180 MG PO SCH (08:54)
[2017-12-31] MEDS: Cyanocobalamin TAB* 500 MCG PO SCH (08:55)
[2017-12-31] MEDS: Ramipril CAP* 10 MG PO SCH (08:55)
[2017-12-31] MEDS: Polyethylene Glycol 3350* 17 GM PACKET PO SCH (08:55)
[2017-12-31] MEDS: Gabapentin CAP(*) 300 MG PO SCH ×2 (08:55→14:05)
[2017-12-31] MEDS: Cholecalciferol TAB* 1000 UNITS PO SCH (08:55)
[2017-12-31] MEDS: Aspirin EC TAB* 81 MG TAB.EC PO SCH (08:55)
[2017-12-31 11:14] VITALS: BP 119/51
--- NOTE | 2017-12-31 13:25 | TRS ---
CC: [facility].* TRANSFER SUMMARY: DATE OF ADMISSION: 12/16/17 DATE OF TRANSFER: 12/31/17 TRANSFER DIAGNOSES: 1. Delirium. 2. Hyponatremia, SIADH etiology uncertain, possibly due to chlorthalidone and/ or duloxetine. 3. Stress myocardial ischemia. 4. Chronic low back pain, status post surgeries. 5. Urinary tract infection, klebsiella. 6. Peripheral neuropathy. 7. History of sarcoid. 8. Anxiety. 9. Anemia of acute illness. HISTORY: Jackie Carr is an 87-year-old woman admitted with change in mental status. Please see dictated admission note for details of present illness and past medical history, family history, social and personal history, review of systems and physical examination. LABORATORY DATA: CBC on admission: WBC is 7.9, H and H 15.6/45, MCV 90, PLT 254,000. CBC at the time of discharge showed anemia of acute illness , WBC 7.1 , H and H 11.4/33, MCV 91. INR 0.96. Chemistries on admission, sodium 133, potassium 4.3, chloride 103, CO2 21, BUN and creatinine 15/0.64. Glucose 119. Rest of her comprehensive metabolic panel was within normal limits except for alk phos mildly elevated at 148. Alk phos remained in similar range, 148, 162, 133. Sodium went down as low as 115 on 12/22/17, was up to 131 by the time of discharge. Troponins were 0.05, 0.05, 0.05 followed serially. The ammonia level was normal at 47 on 12/18/17. C-reactive protein on 12/16/17 was 8.22, at 7.46 on 12/18 and 1.79 on 12/22/11. Phosphorus levels went down as low as 1.8 on 12/25/17, was up to 3 at the time of discharge. Magnesium was 1.6 on , came up to 1.9 by 12/24/17. Lactic acid was 0.7 on admission, hemoglobin A1c was 5.6 on 12/27/17. Serum osmolality was 260 on 12/21/17. Lipase was slightly elevated on 12/21/17 at 94, normal on 12/22/17. A 25 hydroxyvitamin D level was normal at 22 on 12/19/17. TSH was normal on 12/16 at 0.48. Cortisol was normal at 16.21 on 12/21/17. Vitamin B12 was normal at 743 on 12/20/17. Lipids were drawn on 12/21/17. Triglycerides 142, cholesterol 162, LDL 63, HDL 70.6. Urinalysis on admission, yellow, clear. Specific gravity 1.011, pH 6, dipsticks negative, except for trace ketones. UA on 12/19/17, yellow, turbid. Specific gravity 1.017, pH 6, leukocyte esterase 3+, wbc's 3+, rbc's absent, epithelial cells present. Urine random osmolality on 12/21/17 was 603, sodium 122. Urea nitrogen 591, creatinine 76.97. Toxicology screen on 12/16/17 was negative for salicylates, acetaminophen, illicit drugs, and alcohol. Urine culture on 12/19/17 showed Klebsiella ornithinolytica sensitive to all antibiotics tested except for ampicillin and intermediate to nitrofurantoin, greater than 100,000 colonies. Nasal screen for MRSA was negative. Imaging, brain CT on 12/16/17 showed no acute intracranial process, mild involutional change and stigmata of chronic small vessel ischemia. Lumbar spine x- ray on 12/16/17 showed unchanged mild anterior column T12 compression fracture, no new fracture evident; advanced degenerative spondylosis, and facet joint arthritis. Brain MRI 12/17/17 showed no acute intracranial abnormality. Abdominal bladder ultrasound on 12/18/17 showed renal cortical parenchymal thinning, no hydronephrosis or nephrolithiasis, prevoid bladder volume is 199. The patient unable to void spontaneously. Carotid Doppler study on 12/20/17 showed atherosclerotic disease of the distal common carotid arteries and proximal internal carotid arteries causing mild stenosis of less than 50% bilaterally. Head CTA ordered on 12/22/17 could not be performed due to patient movement. EKG on 12/16/17 showed sinus rhythm, PACs. EKG on 12/17/17 sinus tachycardia, consider LVH, borderline T-wave abnormalities , diffuse leads of T-wave flattening, rate is faster, otherwise no significant change. Transthoracic echocardiogram on 12/21/17 was a poor quality study. Normal LV function, EF 50% to 55%. Bubble study showed no patent foramen ovale. EEG 12/21/17 showed no clear-cut abnormality, although there was prominent muscle movement artifact noted. CONSULTATION: Neurology, 12/20/17, Dr. Trace Mills. He felt that her speech problems were out of proportion to her memory issues. He felt that she exhibited some short-term memory problems. Her speech is relatively intact. He did not think she had a significant aphasia. No stroke was demonstrated. He recommended checking carotid Doppler and a baby aspirin. He recommended keeping her off gabapentin unless she complained of burning pain in her feet. He recommended physical therapy. Followup neurology consultation felt that her fluctuating mental status and aphasia was secondary to urinary tract infection. On 12/22, followup neurology consultation, Dr. Whitley, felt she had acute delirium, recommended medical management. He felt that she did not have an acute encephalitis. Intensive care consultation, Dr. Jacobs, 12/21/17, the patient transferred to ICU because of hyponatremia and delirium. He felt that her she had SIADH, recommended fluid restriction and discontinuation of chlorthalidone and duloxetine, checking BMP every 6 hours. Neuro checks. Followup consultation note, Dr. Jacobs, 12/22/17, recommended continued fluid restriction giving her normal saline, checking cortisol. Followup consult, Dr. Jacobs, 12/23/17 suggested that she was improving with normal saline, recommended continued monitoring of BMP. HOSPITAL COURSE: The patient was initially admitted on 12/16/17 with confusion felt to be due to medications that she had taken at home. Initially, she did not have a urinary tract infection to explain her symptoms, although this came up a few days later. She was continued on her home medications for hypertension. She was placed on standing Tylenol orders for her back pain. She was anxious, but her Xanax was held. Cyclone that this was because of her delirium. She was DNR per her MOLST form. She had DVT prophylaxis with subcutaneous heparin. Her troponins were slightly elevated. This was felt to be stress ischemia. It was felt that she had possibly taken more medications than prescribed at home. CVA was ruled out. She had a PT evaluation. She got hydralazine 1 dose for her hypertension. It was felt that she might need halfway placement. She had left lower quadrant pain, which was felt to be due to the urinary tract infection. She continued to be delirious on 12/18/17. Her blood pressure was coming down. Because of her difficulty urinating, she was given renal and bladder ultrasound (see above). She was incontinent of urine at times. By 12/20/17, she seemed less confused, but she had more difficulty expressing herself and so a neurology consult was ordered. She was seen by Neurology (see above). She was started on antibiotics for urinary tract infection. She had diarrhea, felt likely to be due to MiraLAX and prune juice she had been getting for constipation. She had abdominal pain and nausea , likely due to the urinary tract infection. Her niece reported that she was not speaking in complete sentences. Neurology recommended CTA, EEG. Because of hyponatremia and worsening delirium , she was moved to ICU on 12/21/17. She improved while in ICU. She was moved back to the floor on 12/24/17 (see ICU notes above). Her sodium was still low, but coming up. She had received normal saline in the ICU, but not hypertonic saline. She was put on fluid restriction. Her chlorthalidone and duloxetine had been stopped. Her blood pressure was mildly elevated off diuretics. Her UTI was treated with ceftriaxone. She continued to receive physical therapy. She was noted to be hypophosphatemic and this was repleted. She was given ibuprofen p.r.n. for back pain. She had been taken off gabapentin, but because of burning pain in her legs this was restarted on 12/25/17. By 12/26/17, she was walking with physical therapy. She had difficulty voiding at times and had to be straight cathed although this improved over the next few days. She was straight cath p.r.n. by 12/27/17, she was incontinent of urine. She was feeling depressed, but generally better. She was anxious at times. She had some discomfort after eating, but this seem to be getting better with PPIs ( omeprazole). By 12/28/17, she was voiding, not needing to be straight cathed. She did have 240 cc residue after voiding. She felt she was getting stronger, eating better. She felt that gabapentin was helping the burning pain in her legs. Her hyponatremia was improving. Her hypertension was fairly well controlled. By 12/31/17, she is feeling better. The plan is for her to go to [facility] for rehabilitation. She may need Assisted Living after that. DISCHARGE MEDICATIONS: At the time of discharge, her medications are as follows : 1. Acetaminophen 975 mg every 8 hours. 2. Aluminium hydroxide/magnesium hydroxide/simethicone (Maalox Plus) 30 mL p.o. q. 6h p.r.n. nausea. 3. Baby aspirin 81 mg daily. 4. Vitamin D 1000 units daily. 5. B12 at 500 mcg daily. 6. Gabapentin 300 mg t.i.d. 7. Ibuprofen 400 mg p.o. q. 6h. p.r.n. pain. 8. Metoprolol 25 mg daily. 9. Omeprazole 20 mg daily. 10. MiraLAX 17 g daily. 11. Ramipril 10 mg b.i.d. 12. Verapamil 180 mg daily. DIET: Regular. ACTIVITY: Up with assistance. She is to have physical therapy, occupational therapy.Labs to be checked within the next week- CBC, BMP. [id number]/CPS #: [id number] EARLE
== END 2017-12-31 14:10 | DRG 644 ==
LOC: ED 10:20 → MEDTELE 14:48 → OBSVTOIN 12-17 08:33 → ICU 12-21 11:33 → MED 12-23 16:14
PROVIDERS: ADMIT Internal Medicine Geriatric Medicine; ATTEND Internal Medicine Geriatric Medicine
DX: E22.2 Syndrome of inappropriate secretion of antidiuretic hormone (principal); N39.0 Urinary tract infection, site not specified; R47.01 Aphasia; K52.1 Toxic gastroenteritis and colitis; R41.0 Disorientation, unspecified; T50.2X5A Adverse effect of carbonic-anhydrase inhibitors, benzothiadiazides and other diuretics, initial encounter; T43.215A Adverse effect of selective serotonin and norepinephrine reuptake inhibitors, initial encounter; Y92.9 Unspecified place or not applicable; Z66 Do not resuscitate; I25.9 Chronic ischemic heart disease, unspecified; M54.5 Low back pain; B96.1 Klebsiella pneumoniae [K. pneumoniae] as the cause of diseases classified elsewhere; E83.39 Other disorders of phosphorus metabolism; G62.9 Polyneuropathy, unspecified; F41.9 Anxiety disorder, unspecified; D64.89 Other specified anemias; D86.9 Sarcoidosis, unspecified; Z91.81 History of falling; I10 Essential (primary) hypertension; R32 Unspecified urinary incontinence; M48.061 Spinal stenosis, lumbar region without neurogenic claudication; Z79.82 Long term (current) use of aspirin; Z79.899 Other long term (current) drug therapy; Z83.3 Family history of diabetes mellitus
CPT/HCPCS: 36415; 70450; 70496; 70498; 70551; 72100; 76770; 80048; 80053; 80061; 80076; 80307; 80320; 80329; 81003; 81015; 82140; 82306; 82533; 82570; 82607; 83036; 83605; 83690; 83735; 83930; 83935; 84100; 84300; 84443; 84484; 84540; 85025; 85027; 85610; 86140; 87077; 87086; 87186; 87641; 93005; 93308; 93880; 95816; 99284; A9270-GY; G0378; G0480; G8978-GP-CK; G8978-GP-CL; G8979-GP-CH; G8979-GP-CI; G8987-GO-CM; G8988-GO-CJ; J0360; J0696; J1630; J1644; J2405; J3475

== ENCOUNTER 2018-09-28 15:19 | Emergency (ER) | payer MEDICARE, BC ==
[2018-09-28 15:43] VITALS: BP 153/81
[2018-09-28] MEDS ORDERED: traMADol TAB* 50 MG PO ONE (15:56)
--- NOTE | 2018-09-28 16:58 | UC ---
Lower Extremity/Ankle HPI - HPI Summary HPI Summary: patient caught her walker on a table leg and fell injuring he left foot--did not hit her head-lives alone - History of Current Complaint Chief Complaint: UCLowerExtremity Stated Complaint: FOOT INJURY Time Seen by Provider: 09/28/18 15:40 Hx Obtained From: Patient ?: No Onset/Duration: Sudden Onset, Lasting Hours - 3, Still Present Pain Intensity: 6 Pain Scale Used: 0-10 Numeric Aggravating Factor(s): Standing, Ambulation Alleviating Factor(s): Rest, Elevation, Ice Able to Bear Weight: Yes - Allergies/Home Medications Allergies/Adverse Reactions: Allergies Allergy/AdvReac Type Severity Reaction Status Date / Time No Known Allergies Allergy Verified 09/28/18 15:43 Home Medications: Home Medications Gabapentin CAP(*) [Neurontin 300 CAP(*)] 600 mg PO QID 09/28/18 [History Confirmed 09/28/18] Metoprolol Succinate XL TAB* [Toprol XL TAB*] 25 mg PO BID 09/28/18 [History Confirmed 09/28/18] traMADol TAB* [Ultram*] 50 mg PO Q6HR PRN 09/28/18 [History Confirmed 09/28/18] PMH/Surg Hx/FS Hx/Imm Hx Previously Healthy: No - Arthritis Cardiovascular History: Hypertension GI/ History: Gastroesophageal Reflux - Surgical History Surgical History: Yes Surgery Procedure, Year, and Place: 1972-HYSTERECTOMY;. 2005-BIOPSY OF LYMPH NODES;. 2006-ROTATOR CUFF REPAIR RIGHT SHOULDER;. BILATERAL CATARACT 2012;. BACK SURGERY (4 TOTAL) 09/03/14, 12/14/15, 09/2016, 02/28/17 - Family History Known Family History: Positive: Hypertension - sister, Diabetes - sister, Other - CA - Social History Occupation: Retired Lives: Alone Alcohol Use: None Substance Use Type: None Smoking Status (MU): Never Smoked Tobacco Have You Smoked in the Last Year: No - Immunization History Most Recent Influenza Vaccination: 12/11/17 Most Recent Tetanus Shot: up to date Most Recent Pneumonia Vaccination: within last 3 years Review of Systems All Other Systems Reviewed And Are Negative: Yes Constitutional: Positive: Negative Skin: Positive: Negative Eyes: Positive: Negative ENT: Positive: Negative Respiratory: Positive: Negative Cardiovascular: Positive: Negative Gastrointestinal: Positive: Negative Genitourinary: Positive: Negative Motor: Positive: Negative Neurovascular: Positive: Negative Musculoskeletal: Positive: Arthralgia - left foot 3/4/5 distal metatarsal Neurological: Positive: Negative Psychological: Positive: Negative Is Patient Immunocompromised?: No Physical Exam Triage Information Reviewed: Yes Appearance: Well-Appearing, Well-Nourished, Pain Distress - mild Vital Signs: Initial Vital Signs Temp 99.0 F 09/28/18 15:34 Pulse 60 09/28/18 15:34 Resp 16 09/28/18 15:34 BP 153/81 09/28/18 15:34 Pulse Ox 95 09/28/18 15:34 Vital Signs Reviewed: Yes Eye Exam: Normal Eyes: Positive: Conjunctiva Clear ENT Exam: Normal ENT: Positive: Normal ENT inspection, Hearing grossly normal. Negative: Trismus , Muffled voice, Hoarse voice Dental Exam: Normal Neck exam: Normal Neck: Positive: Supple, Nontender Respiratory Exam: Normal Respiratory: Positive: Chest non-tender, Lungs clear, Normal breath sounds, No respiratory distress, No accessory muscle use Cardiovascular Exam: Normal Cardiovascular: Positive: RRR, No Murmur, Pulses Normal, Brisk Capillary Refill Musculoskeletal Exam: Normal Musculoskeletal: Positive: Strength Intact, ROM Intact, Edema @ - distal left metatarsal Neurological Exam: Normal Neurological: Positive: Alert, Muscle Tone Normal Psychological Exam: Normal Skin Exam: Normal Diagnostics - Radiology No standard instances Radiology Interpretation Completed By: Radiologist - fracture 3/4/5 distal metatarsal heads Lower Extremity Course/Dx - Course Course Of Treatment: cam boot, rice, use prn ultram, Tylenol follow with orthopedic MD this week - Differential Dx/Diagnosis Provider Diagnosis: Closed fracture of head of metatarsal bone of left foot Discharge - Sign-Out/Discharge Documenting (check all that apply): Patient Departure All imaging exams completed and their final reports reviewed: No Studies - Discharge Plan Condition: Stable Disposition: HOME Patient Education Materials: Acetaminophen (By mouth), Tramadol (By mouth), Foot Fracture in Adults (ED), R.I.C.E. Treatment (ED) Referrals: Adrian Velasco MD [Medical Doctor] - 3 Days - Billing Disposition and Condition Condition: STABLE Disposition: Home
== END 2018-09-28 17:57 | disposition home or self-care (01) ==
LOC: UCEAST 15:19
DX: S92.302A Fracture of unspecified metatarsal bone(s), left foot, initial encounter for closed fracture (principal); W18.39XA Other fall on same level, initial encounter; Y92.9 Unspecified place or not applicable; I10 Essential (primary) hypertension; K21.9 Gastro-esophageal reflux disease without esophagitis
CPT/HCPCS: 99203; A9270-GY; G0463

== ENCOUNTER 2018-12-17 16:00 | Emergency (ER) | payer MEDICARE, BC ==
--- NOTE | 2018-12-17 18:05 | ED ---
Skin Complaint - HPI Summary HPI Summary: Complains of skin tear to right forearm status post mechanical fall today at 3: 30. Patient denies any other pain, symptoms or injury. Medical history is HTN. Tetanus status unknown - History of Current Complaint Chief Complaint: EDFall Time Seen by Provider: 12/17/18 16:35 Stated Complaint: FALL PER EMS Hx Obtained From: Patient Onset/Duration: Started Hours Ago Skin Exposure Onset/Duration: Hours Ago Timing: Constant Current Severity: None Pain Intensity: 0 Pain Scale Used: 0-10 Numeric Aggravating Symptom(s): Nothing Alleviating Symptom(s): Nothing Associated Signs & Symptoms: Negative - Additional Pertinent History Primary Care Physician: [id number] - Allergy/Home Medications Allergies/Adverse Reactions: Allergies Allergy/AdvReac Type Severity Reaction Status Date / Time No Known Allergies Allergy Verified 09/28/18 15:43 Home Medications: Home Medications Spironolactone TAB* [Aldactone TAB*] 12.5 mg PO DAILY 12/17/18 [History Confirmed 12/17/18] PMH/Surg Hx/FS Hx/Imm Hx Endocrine/Hematology History: Denies: Hx Diabetes, Hx Thyroid Disease Cardiovascular History: Reports: Hx Hypertension Denies: Hx Pacemaker/ICD Respiratory History: Reports: Other Respiratory Problems/Disorders - sarcoidosis Denies: Hx Asthma, Hx Chronic Obstructive Pulmonary Disease (COPD), Hx Pneumonia GI History: Denies: Hx Gastroesophageal Reflux Disease, Hx Ulcer History: Denies: Hx Renal Disease Musculoskeletal History: Reports: Hx Arthritis - BACK AND FEET, Hx Back Problems - disk herniation, spinal stenosis with sx's, Hx Osteoporosis, Other Musculoskeletal History - R rotator cuff repair Denies: Hx Rheumatoid Arthritis Sensory History: Reports: Hx Cataracts - BILATERAL, had sx, sees well, Hx Contacts or Glasses, Hx Macular Degeneration - slight, per patient, Hx Hearing Aid - BILAT, Hx Hearing Problem Opthamlomology History: Reports: Hx Cataracts - BILATERAL, had sx, sees well, Hx Contacts or Glasses, Hx Macular Degeneration - slight, per patient Neurological History: Reports: Other Neuro Impairments/Disorders - SPINAL STENOSIS Denies: Hx Developmental Delay Psychiatric History: Denies: Hx Panic Disorder - Surgical History Surgery Procedure, Year, and Place: 1972-HYSTERECTOMY;. 2005-BIOPSY OF LYMPH NODES;. 2006-ROTATOR CUFF REPAIR RIGHT SHOULDER;. BILATERAL CATARACT 2012;. BACK SURGERY (4 TOTAL) 09/03/14, 12/14/15, 09/2016, 02/28/17 Hx Anesthesia Reactions: No Infectious Disease History: No Infectious Disease History: Reports: Hx Shingles - on her back, "years ago" Denies: Hx Clostridium Difficile, Hx Hepatitis, Hx Human Immunodeficiency Virus (HIV), Hx of Known/Suspected MRSA, Hx Tuberculosis, Hx Known/Suspected VRE , Hx Known/Suspected VRSA, History Other Infectious Disease, Traveled Outside the [place] in Last 30 Days - Family History Known Family History: Positive: Hypertension - sister, Diabetes - sister, Other - [place] - Social History Alcohol Use: None Substance Use Type: Reports: None Smoking Status (MU): Never Smoked Tobacco Have You Smoked in the Last Year: No Review of Systems Constitutional: Negative Eyes: Negative ENT: Negative Cardiovascular: Negative Gastrointestinal: Negative Genitourinary: Negative Musculoskeletal: Negative Skin: Other Neurological: Negative Psychological: Normal All Other Systems Reviewed And Are Negative: Yes Physical Exam - Summary Physical Exam Summary: 7 cm x 7 cm skin tear along dorsal surface of right proximal forearm. Full range of motion of right wrist and right elbow with no pain. Triage Information Reviewed: Yes Vital Signs On Initial Exam: Initial Vitals Temp Pulse Resp BP Pulse Ox 97.9 F 68 16 191/99 95 12/17/18 16:06 12/17/18 16:06 12/17/18 16:06 12/17/18 16:06 12/17/18 16:06 Vital Signs Reviewed: Yes Appearance: Positive: Well-Appearing Skin: Positive: Warm Head/Face: Positive: Normal Head/Face Inspection Eyes: Positive: Normal Neck: Positive: Supple Respiratory/Lung Sounds: Positive: Clear to Auscultation Cardiovascular: Positive: Normal Abdomen Description: Positive: Nontender Musculoskeletal: Positive: Normal Neurological: Positive: Normal Psychiatric: Positive: Normal AVPU Assessment: Alert - Veronika Coma Scale Best Eye Response: 4 - Spontaneous Best Motor Response: 6 - Obeys Commands Best Verbal Response: 5 - Oriented Coma Scale Total: 15 Procedures - Sedation Patient Received Moderate/Deep Sedation with Procedure: No Diagnostics - Vital Signs Vital Signs Temp Pulse Resp BP Pulse Ox 12/17/18 16:06 97.9 F 68 16 191/99 95 - Laboratory Lab Statement: Any lab studies that have been ordered have been reviewed, and results considered in the medical decision making process. Course/Dx - Course Course Of Treatment: Complains of skin tear to right forearm status post mechanical fall today at 3:30. Patient denies any other pain, symptoms or injury. Medical history is HTN. Tetanus status unknown. Vital signs within normal limits. Skin tear replaces protective barrier and held in place with Tegaderm. Rx for Bactrim. - Diagnoses Provider Diagnoses: Fall, Skin tear Discharge ED - Sign-Out/Discharge Documenting (check all that apply): Patient Departure - Discharge Plan Condition: Stable Disposition: HOME Prescriptions: Cephalexin CAP* [Keflex CAP*] 500 mg PO TID 4 Days #12 cap Patient Education Materials: Skin Tear (ED) Referrals: Magda Unger MD [Primary Care Provider] - Additional Instructions: Leave tape on for 5 days, then remove. You may then wash wound with warm running water and soap. Take antibiotics as directed. Keep wound clean dry and protected when not washing. Follow-up with primary care. Return to the ED for any new or worsening symptoms. - Billing Disposition and Condition Condition: STABLE Disposition: Home
[2018-12-17] MEDS: Tetan/Diph/Pertus SYR(Tdap)* 0.5 ML SYR(BOOSTRIX) use SYR contains LATEX IM ONE (18:17)
[2018-12-17] MEDS: Cephalexin CAP* 500 MG PO ONE (18:17)
[2018-12-17 18:26] VITALS: BP 188/91
== END 2018-12-17 18:10 | disposition home or self-care (01) ==
LOC: ED 16:00
DX: S51.811A Laceration without foreign body of right forearm, initial encounter (principal); Z23 Encounter for immunization; W19.XXXA Unspecified fall, initial encounter; Y92.9 Unspecified place or not applicable; I10 Essential (primary) hypertension; D86.9 Sarcoidosis, unspecified; Z90.710 Acquired absence of both cervix and uterus; Z79.82 Long term (current) use of aspirin; Z79.899 Other long term (current) drug therapy
CPT/HCPCS: 90471; 90715; 99283; A9270-GY

== ENCOUNTER 2019-06-08 05:30 | Inpatient (IN) | payer MEDICARE, BC ==
--- NOTE | 2019-06-08 06:12 | ED ---
GI/ HPI - HPI Summary HPI Summary: Patient is an 88 year-old female presenting to [facility] with a chief complaint of diffuse abdominal pain onset yesterday and rectal bleeding and onset this morning around 0130. She reports that she had diarrhea with abdominal pain yesterday during the day with nausea, resulting in a loss of appetite. This morning around 0130, she had woken up and gone to the bathroom and noticed bright red blood from the rectum. She then went back to bed. She woke up again and had gone to the bathroom with a noticeable blood clot from the rectum and only a small bowel movement. Every time she has gone to the bathroom since this morning, she has rectal bleeding. She notes a known hemorrhoid. She denies fevers or vomiting. She has dizziness with standing, but this is baseline for her, no acute changes. Symptoms rated 3/10 in severity. No recent medication changes. She has not experienced these symptoms before. Past medical history includes hypertension, sarcoidosis, arthritis, osteoporosis, macular degeneration, spinal stenosis, hysterectomy, back surgeries, shoulder surgery. Nonsmoker, no EtOH, no substance use. Medications reviewed. Allergies noted. - History of Current Complaint Chief Complaint: EDAbdPain Time Seen by Provider: 06/08/19 05:59 Stated Complaint: RECTAL BLEEDING/ABD PAIN PER PT Hx Obtained From: Patient Onset/Duration: Started Hours Ago, Still Present Timing: Constant Severity: Mild Current Severity: Mild Pain Intensity: 3 Location of Pain: Diffuse Pain Characteristics: Sharp Associated Signs and Symptoms: Positive: Nausea, Diarrhea, Change in Appetite, Abdominal Pain, Other: - rectal bleeding. Negative: Vomiting, Fever Aggravating Factor(s): Nothing Alleviating Factor(s): Nothing - Additional Pertinent History Primary Care Physician: [id number] - Allergy/Home Medications Allergies/Adverse Reactions: Allergies Allergy/AdvReac Type Severity Reaction Status Date / Time No Known Allergies Allergy Verified 06/08/19 05:35 Home Medications: Home Medications Cholecalciferol TAB* [Vitamin D TAB*] 1,000 unit PO DAILY 06/16/16 [History Confirmed 06/08/19] Cyanocobalamin TAB* [Vitamin B12 TAB*] 500 mcg PO DAILY 06/16/16 [History Confirmed 06/08/19] Gabapentin CAP(*) [Neurontin 300 CAP(*)] 600 mg PO TID 09/28/18 [History Confirmed 06/08/19] Metoprolol Succinate XL TAB* [Toprol XL TAB*] 25 mg PO BEDTIME 09/28/18 [ History Confirmed 06/08/19] traMADol TAB* [Ultram*] 50 mg PO Q6HR PRN 09/28/18 [History Confirmed 06/08/19] Benazepril HCl 10 mg PO DAILY 06/08/19 [History Confirmed 06/08/19] Chlorthalidone TAB* [Hygroton TAB*] 25 mg PO MOWEFR 06/08/19 [History Confirmed 06/08/19] Lidocaine 1 patch TRANSDERM DAILY 06/08/19 [History Confirmed 06/08/19] Omeprazole CAP (NF) [Prilosec CAP* 20 MG] 20 mg PO DAILY 06/08/19 [History Confirmed 06/08/19] Sertraline* [Zoloft*] 25 mg PO DAILY 06/08/19 [History Confirmed 06/08/19] PMH/Surg Hx/FS Hx/Imm Hx Endocrine/Hematology History: Denies: Hx Diabetes, Hx Thyroid Disease Cardiovascular History: Reports: Hx Hypertension Denies: Hx Pacemaker/ICD Respiratory History: Reports: Other Respiratory Problems/Disorders - sarcoidosis Denies: Hx Asthma, Hx Chronic Obstructive Pulmonary Disease (COPD), Hx Pneumonia GI History: Denies: Hx Gastroesophageal Reflux Disease, Hx Ulcer History: Denies: Hx Renal Disease Musculoskeletal History: Reports: Hx Arthritis - BACK AND FEET, Hx Back Problems - disk herniation, spinal stenosis with sx's, Hx Osteoporosis, Other Musculoskeletal History - R rotator cuff repair Denies: Hx Rheumatoid Arthritis Sensory History: Reports: Hx Cataracts - BILATERAL, had sx, sees well, Hx Contacts or Glasses, Hx Macular Degeneration - slight, per patient, Hx Hearing Aid - BILAT, Hx Hearing Problem Opthamlomology History: Reports: Hx Cataracts - BILATERAL, had sx, sees well, Hx Contacts or Glasses, Hx Macular Degeneration - slight, per patient Neurological History: Reports: Other Neuro Impairments/Disorders - SPINAL STENOSIS Denies: Hx Developmental Delay Psychiatric History: Denies: Hx Panic Disorder - Surgical History Surgical History: Yes Surgery Procedure, Year, and Place: 1972-HYSTERECTOMY;. 2005-BIOPSY OF LYMPH NODES;. 2006-ROTATOR CUFF REPAIR RIGHT SHOULDER;. BILATERAL CATARACT 2012;. BACK SURGERY (4 TOTAL) 09/03/14, 12/14/15, 09/2016, 02/28/17 Hx Anesthesia Reactions: No Infectious Disease History: Yes Infectious Disease History: Reports: Hx Shingles - on her back, "years ago" Denies: Hx Clostridium Difficile, Hx Hepatitis, Hx Human Immunodeficiency Virus (HIV), Hx of Known/Suspected MRSA, Hx Tuberculosis, Hx Known/Suspected VRE , Hx Known/Suspected VRSA, History Other Infectious Disease, Traveled Outside the [place] in Last 30 Days - Family History Known Family History: Positive: Hypertension - sister, Diabetes - sister, Other - bowel cancer - Social History Alcohol Use: None Hx Substance Use: No Substance Use Type: Reports: None Hx Tobacco Use: No Smoking Status (MU): Never Smoked Tobacco Have You Smoked in the Last Year: No Review of Systems - ROS Summary Review of Systems Summary: Home Medications Medication Instructions Recorded Confirmed Type Verapamil SR TAB* [Calan Sr TAB*] 180 mg PO QPM 01/31/13 12/17/18 History Aspirin EC TAB* [Ecotrin EC Low 81 mg PO DAILY 06/16/16 12/17/18 History Dose 81 MG*] Cholecalciferol TAB* [Vitamin D 1,000 unit PO DAILY 06/16/16 12/17/18 History TAB*] Cyanocobalamin TAB* [Vitamin B12 500 mcg PO DAILY 06/16/16 12/17/18 History TAB*] Chlorthalidone TAB* [Hygroton TAB*] 25 mg PO DAILY 08/30/17 12/17/18 History Polyethylene Glycol 3350* [Miralax 17 gm PO DAILY PRN 08/30/17 12/17/18 History (17 GM DOSE EHSAN)] Omeprazole CAP (NF) [Prilosec CAP* 20 mg PO DAILY@0600 cap. 12/30/17 Rx 20 MG] Gabapentin CAP(*) [Neurontin 300 600 mg PO TID 09/28/18 12/17/18 History CAP(*)] Metoprolol Succinate XL TAB* 25 mg PO BID 09/28/18 12/17/18 History [Toprol XL TAB*] traMADol TAB* [Ultram*] 50 mg PO Q6HR PRN 09/28/18 12/17/18 History Cephalexin CAP* [Keflex CAP*] 500 mg PO TID 4 Days #12 cap 12/17/18 Rx Spironolactone TAB* [Aldactone 12.5 mg PO DAILY 12/17/18 12/17/18 History TAB*] Negative: Fever Positive: Abdominal Pain, Diarrhea, Nausea, Other - rectal bleeding. Negative: Vomiting Neurological/Mental Status: Other - dizziness at baseline All Other Systems Reviewed And Are Negative: Yes Physical Exam - Summary Physical Exam Summary: General: Well-developed, Well-nourished elderly female. No acute distress. HEENT: Normocephalic, Atraumatic. Eyes: Conjuctiva normal, PERRL. Oropharynx: Clear, mucous membranes moist, (-) exudates. Neck: Soft, FROM, (-) lymphadenopathy, (-) thyromegaly, (-) JVD. Cardiovascular: Normal sinus rhythm, (-) murmur. Lungs: Clear to auscultation bilaterally (-) wheezes, (-) rales, (-) rhonchi. Abdomen: Soft, moderate tenderness throughout, non-distended, (-) organomegaly, normal bowel sounds. Back: (-) CVA tenderness Extremities: No edema. Skin: Warm, dry, (-) rash. Neuro: Alert and oriented x3, moves all extremities equally. No ataxia. No gait disturbance. No sensory deficit. Normal strength, normal sensation. Psychiatric: Mood normal, affect normal. Triage Information Reviewed: Yes Vital Signs On Initial Exam: Initial Vitals Temp Pulse Resp BP Pulse Ox 98.7 F 98 15 132/76 93 06/08/19 05:30 06/08/19 05:30 06/08/19 05:30 06/08/19 05:30 06/08/19 05:30 Vital Signs Reviewed: Yes Procedures - Sedation Patient Received Moderate/Deep Sedation with Procedure: No Diagnostics - Vital Signs Vital Signs Temp Pulse Resp BP Pulse Ox 06/08/19 05:30 98.7 F 98 15 132/76 93 - Laboratory Result Diagrams: 06/08/19 15:49 06/08/19 05:59 Lab Statement: Any lab studies that have been ordered have been reviewed, and results considered in the medical decision making process. Re-Evaluation - Re-Evaluation First Eval Re-Evaluation Time: 07:37 Comment: Patient is resting comfortably. No acute distress. Vitals normal. GIGU Course/Dx - Course Course Of Treatment: 88-year-old female presents by ambulance from home with abdominal pain and rectal bleeding. Patient states she didn't feel well yesterday all day. Had nausea and decreased appetite. Diarrhea. Awoke at 1: 30 this morning with worsening belly pain. Had small amounts of rectal bleeding at that time. Last time she went to the bathroom she had a blood clot passed rectally. She became concerned and decided to come in to be seen. She continues to have abdominal pain. Has had no vomiting. No known fevers. No dizziness or lightheadedness. On physical exam she has diffuse tenderness throughout the abdomen. She is afebrile with normal heart rate. Workup demonstrates hemoglobin of 13 with G[address] of 52. CT abdomen and pelvis ordered. Patient is signed out at change of shift awaiting results. - Diagnoses Provider Diagnoses: Abdominal pain, Rectal bleeding, Colitis Discharge ED - Sign-Out/Discharge Documenting (check all that apply): Sign-Out Patient Signing out patient TO: Pedro Luis Benson - Patient is a sign-out to Dr. Pedro Luis Benson MD, at change of shift at 0700 on 06/08/19, pending Abd/Pel CT and disposition. - Discharge Plan Condition: Stable Disposition: ADMITTED TO [facility] - Billing Disposition and Condition Condition: STABLE Disposition: Admitted to [facility] - Attestation Statements Document Initiated by Chris: Yes Documenting Scribe: Vanessa Olivares Provider For Whom Chris is Documenting (Include Credential): Miya Molina MD Scribe Attestation: Vanessa Miner, scribed for Miya Molina MD on 06/08/19 at 2228. Scribe Documentation Reviewed: Yes Provider Attestation: The documentation as recorded by the Vanessa sullivan accurately reflects the service I personally performed and the decisions made by me, Miya Molina MD Status of Scribe Document: Viewed
[2019-06-08 06:20] LABS: ABS Lymphocytes 1.1 10^3/ul (1.0-4.8); ABS Monocytes 0.8 10^3/ul (0-0.8); ABS Neutrophils 7.3 10^3/ul (1.5-7.7); Eosinophil % 0.2 %; Hematocrit 39 % (35-47); Hemoglobin 13.1 g/dL (12.0-16.0); Lymphocyte % 12.4 %; Mean Corpuscular HGB Conc 34 g/dL (31-36); Mean Corpuscular Hemoglobin 29 pg (27-31); Mean Corpuscular Volume 86 fL (80-97); Mean Platelet Volume 7.6 fL (7.4-10.4); Platelet Count 259 10^3/uL (150-450); Red Blood Count 4.51 10^6 /uL (3.70-4.87); Red Cell Distribution Width 14 % (10-15); White Blood Count 9.3 10^3/uL (3.5-10.8)
[2019-06-08 06:37] LABS: Activated Partial Thrombo Time 31.2 seconds (26.0-38.0); INR 1.1 (0.82-1.09)
[2019-06-08 06:39] LABS: Albumin 3.6 g/dL (3.2-5.2); Albumin/Globulin Ratio 1.5 (1-3); BUN/Creatinine Ratio 18.8 (8-20); C Reactive Protein 15.84 mg/L (<8.01); Calcium 10.8 mg/dL (8.6-10.3); EGFR African American 62.9 (>60); Globulin 2.4 g/dL (2-4); Total Bilirubin 0.7 mg/dL (0.2-1.0)
--- NOTE | 2019-06-08 07:17 | ED ---
Progress - Progress Note Progress Note: Patient received as a sign out from Dr. Molina at 0700 shift change pending admission to ICU. - Results/Orders Results/Orders: Abdomen/Pelvis CT IMPRESSION: Wall thickening of the descending colon and sigmoid colon likely representing a submucosal edema consistent with colitis. No bowel obstruction is noted. Likely splenic cyst is noted. Gallstone is noted. This report was reviewed by the ED physician. EKG at 1034 shows sinus rhythm at 77bpm. No ST elevations. No STEMI. This EKG was reviewed and interpreted by the ED physician. Re-Evaluation - Re-Evaluation First Eval Re-Evaluation Time: 07:37 Comment: Patient is resting comfortably. No acute distress. Vitals normal. Course/Dx - Course Course Of Treatment: This patient was signed out to Dr. Molina at shift change. She requests to follow-up abdominopelvic CT. Abdominal and pelvic CT IMPRESSION: Wall thickening of the descending colon and sigmoid colon likely representing a submucosal edema consistent with colitis. No bowel obstruction is noted. Likely splenic cyst is noted. Gallstone is noted. I discussed the case with Dr. Ruiz from GI and he recommends for the patient to be given IV fluids, ciprofloxacin and Flagyl, and admitted the patient to the hospitalist. I discuss my physical exam and test results with Dr. Abreu from the hospitalist services and he agrees to admit the patient to his services. The patient is hemodynamically stable, alert and oriented x 3. - Diagnoses Provider Diagnoses: Abdominal pain, Rectal bleeding, Colitis - Provider Notifications Discussed Care Of Patient With: Chanel Ruiz Time Discussed With Above Provider: 10:12 Instructed by Provider To: Other - Patient's case was discussed with Dr. Venice Campo, who recommends admission. At 1018 her case was discussed with Dr. Abreu , who agreed to admit the patient. Discharge ED - Sign-Out/Discharge Documenting (check all that apply): Patient Departure - admit - Discharge Plan Condition: Stable Disposition: ADMITTED TO [facility] - Billing Disposition and Condition Condition: STABLE Disposition: Admitted to [facility] - Attestation Statements Document Initiated by Scribe: Yes Documenting Scribe: Skyler Mccray Provider For Whom Scribe is Documenting (Include Credential): Pedro Luis Benson MD Scribe Attestation: ISkyler, scribed for Pedro Luis Benson MD on 06/08/19 at 1844. Scribe Documentation Reviewed: Yes Provider Attestation: The documentation as recorded by the [email or web address] accurately reflects the service I personally performed and the decisions made by , Pedro Luis Benson MD Status of Scribe Document: Viewed
[2019-06-08] MEDS ORDERED: Iohexol 300* (CONTRAST) 10 ML SDV IV SCH (07:23)
[2019-06-08 07:55] LABS: Magnesium 1.6 mg/dL (1.9-2.7)
[2019-06-08] MEDS: KCL 10 MEQ/50 ML IVPREMIX* 10 MEQ/50 ML BAG IV SCH ×2 (08:15→11:25)
[2019-06-08] MEDS ORDERED: Ciprofloxacin 400MG IVPREMIX(* 400 MG/200 ML BAG IVPB ONE (10:15)
[2019-06-08] MEDS ORDERED: NS 0.9% 1000 ML** 1,000 ML IV ONE (10:15)
[2019-06-08] MEDS ORDERED: metroNIDAZOLE TAB* 250 MG PO ONE (10:15)
[2019-06-08] MEDS ORDERED: Magnesium Sulfate 1 GM IV* 1 GM/100 ML BAG IV ONE (10:16)
[2019-06-08] MEDS ORDERED: Potassium Chlor TAB* 20 MEQ TAB.ER PO ONE (10:28)
[2019-06-08] MEDS ORDERED: Al Hydrox/Mg Hydrox/Simet LIQ* 30 ML UDC PO PRN (11:05)
[2019-06-08] MEDS ORDERED: Ondansetron INJ* 2 MG/ML VIAL IV PRN (11:05)
[2019-06-08] MEDS ORDERED: Senna TAB 8.6 mg* TAB PO PRN (11:05)
[2019-06-08] MEDS ORDERED: Ondansetron ODT TAB* 4 MG SL PRN (11:09)
[2019-06-08] MEDS ORDERED: Lidocaine PATCH 5%* 1 PATCH TRANSDERM PRN (11:17)
[2019-06-08] MEDS ORDERED: Lisinopril TAB* 10 MG PO SCH (11:30)
[2019-06-08] MEDS: Gabapentin CAP(*) 300 MG PO SCH ×2 (13:36→20:15)
[2019-06-08] MEDS: Sertraline* 25 MG TAB PO SCH (13:37)
[2019-06-08] MEDS: KCL 20 MEQ/100 ML IVPREMIX* 20 MEQ/100 ML BAG IV SCH ×2 (13:37→16:13)
--- NOTE | 2019-06-08 13:37 | HP ---
CC: Dr. Magda Unger * HISTORY AND PHYSICAL: DATE OF ADMISSION: 06/08/19 ATTENDING PHYSICIAN WHILE IN THE HOSPITAL: Dr. Catarina Abreu * (dictated by MIK Trinh). PRIMARY CARE PROVIDER: Dr. Magda Unger. CHIEF COMPLAINT: Abdominal pain and bright red blood per rectum. HISTORY OF PRESENT ILLNESS: Jackie Carr is an 88-year-old white female with past medical history significant for hypertension, sarcoidosis, anxiety, and spinal stenosis, who presents to the emergency department today due to sudden onset of abdominal pain as well as bright red blood per rectum. The patient started having abdominal pain that was primarily located in the lower quadrants starting yesterday at 2 p.m. She tells me that it has progressively worsened and is diffuse throughout the abdomen now and has not changed in severity of pain since that time. At the time of the sudden onset, she thought she had to have a bowel movement and she then had diarrhea. Since that time she has not had any diarrhea. She did have 1 small formed stool yesterday evening but did not note any blood in the stool then or with the diarrhea. She then went to the bathroom early this morning and did not notice blood in the toilet, but did notice a blood clot on tissue paper after wiping her buttocks. Here in the emergency department, she attempted to have a bowel movement in the commode but there was urine and blood mixed but with no formed stool. She has been feeling nauseous intermittently but not at this time and denies any vomiting. She denies chest pain, chest palpitations, shortness of breath, fever, chills, dizziness, lightheadedness. She has been having a headache intermittently for last 3 days. She checked her blood pressure at home and she tells me was within normal range. PAST MEDICAL HISTORY: 1. Hypertension. 2. Sarcoidosis. 3. Anxiety. 4. Spinal stenosis. PAST SURGICAL HISTORY: 1. Partial hysterectomy. 2. Oophorectomy later. 4. Four spinal surgeries. 5. Right rotator cuff surgery. FAMILY HISTORY: Sister has a history of diabetes. Father at age 86 of unclear etiology, but he had a history of pernicious anemia. Mother at age 48 due to CVA. SOCIAL HISTORY: The patient lives alone. She was never . She has no children. 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 She is not a smoker. She has a very distant smoking history of only 1 year in her 20s. She denies drinking or illicit drug use. Her surrogate medical decision maker should she need one is her niece Natalya Rolle, her cellphone number is [phone], her home number is [phone]. HOME MEDICATIONS: 1. Metoprolol succinate 25 mg p.o. at bedtime. 2. Chlorthalidone 25 mg p.o. Sunday, Sunday and Sunday. 3. Lidocaine 1 patch transdermally daily. 4. Tramadol 50 mg p.o. q. 6 hours p.r.n. pain. 5. Zoloft 25 mg p.o. daily. 6. Omeprazole 20 mg p.o. daily. 7. Gabapentin 600 mg p.o. t.i.d. 8. Cyanocobalamin 500 mcg p.o. daily. 9. Vitamin D 1000 units p.o. daily. 10. Benazepril 10 mg p.o. daily. ALLERGIES: No known drug allergies. REVIEW OF SYSTEMS: An 11-point review of systems was completed. All pertinent positives and negatives are above in the HPI. All other systems are negative. PHYSICAL EXAMINATION GENERAL: Thin, elderly white female, lying in hospital bed, appearing comfortable, in no acute distress. VITAL SIGNS: Temperature 98.7 degrees Fahrenheit, heart rate 98, respiratory rate 15, oxygen saturation 93% on room air. Blood pressure 132/76, later 200/ 92. HEENT: Eyes: PERRLA. Sclerae anicteric. ENT: Mucous membranes are moist. LUNGS: Clear to auscultation throughout. CARDIO: Regular rate and rhythm without murmurs, rubs, or gallops. ABDOMEN: Normoactive bowel sounds x4 quadrants, minimally tender throughout but more tender in the right upper quadrant with rebound tenderness from right upper quadrant referred to the central abdomen. No epigastric tenderness to palpation. No guarding or rigidity. Negative jar sign. On rectal exam, there are no external or internal hemorrhoids. There is bright red blood in the rectal vault. EXTREMITIES: No clubbing, cyanosis, or edema. NEURO: The patient is alert and oriented x3. 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 Dorsiflexion and plantar flexion is equal 5/5 bilaterally. Alert and oriented x3. PSYCH: The patient is pleasant and cooperative. PERTINENT STUDIES/LAB DATA: White blood cell count 9.3, hemoglobin 13.1, hematocrit 39, platelet count 259. INR 1.1. Sodium 135, potassium 3.0, chloride 99, carbon dioxide 28, anion gap 8, BUN 19, creatinine 1.01, glucose 131. Lactic acid 1.3. Calcium 10.8. Magnesium 1.6. LFTs overall unremarkable but alk phos is 111. CRP 15.84. Abdomen and pelvis CT with contrast, impression: Wall thickening of the descending colon and sigmoid colon, likely representing a submucosal edema consistent with colitis. No bowel obstruction is noted. Likely splenic cyst is noted. Gallstone is noted. EKG: Normal sinus rhythm. Isolated T wave inversion in lead III. No ischemic changes. Normal axis. ASSESSMENT AND PLAN: Jackie Carr is an 88-year-old white female with past medical history significant for hypertension, anxiety, sarcoidosis, and spinal stenosis, who presents to the emergency department today for bright red blood per rectum and abdominal pain. The patient will be admitted for observation for : 1. Bright red blood per rectum. Given that this started shortly after her onset of abdominal pain, ischemic colitis is on the differential. It is possible that this may represent any infectious colitis and consequential bleeding from this as well; however, symptoms do not appear consistent with infectious colitis, but we will cover for it with Cipro and Flagyl and check stool cultures, stool ova and para, stool lactoferrin. The patient did have bright red blood in the vault still at the time of my rectal exam without any notable hemorrhoids. Her CT did not indicate any mass, though bleeding mass seems less likely. I will trend H and H q.[address] her on a clear liquid diet as Gastroenterology may want to perform flexible sigmoidoscopy tomorrow as discussed with Dr. Ruiz. GI will evaluate the patient tomorrow. I am going to order the patient telemetry to monitor for atrial fibrillation and atrial flutter as possible etiologies for ischemic colitis. Her EKG was in normal sinus in the ED. 2. Hypertension. The patient is hypertensive in the emergency department; however, she is in abdominal pain. I will make sure she gets her home LEIGHTON inhibitor and chlorthalidone today. I will continue her on these. She did recently restart her chlorthalidone which may be why she has hypomagnesemia and hypokalemia. We are replacing these. Continue her metoprolol succinate as well. 3. Anxiety. Continue the patient's home sertraline. 4. Spinal stenosis. The patient has chronic back pain from this and I will continue her home p.r.n. tramadol. 5. FEN: The patient will have a have clear liquid diet. As previously mentioned, I am replacing her potassium and magnesium, and we will continue to monitor this after repletion. No need for IV fluids at this time. 6. DVT prophylaxis: I will order SCDs in this state of active GI blood loss. 7. Code status: The patient is DNR/DNI and I have updated her MOLST. This case has been reviewed with my attending Dr. Orlin Abreu, and she agrees with this plan of care. MIK TRINH [id number]/[facility]PS #: [id number] [id number]/CPS #: [id number] [place]
[2019-06-08 15:37] LABS: Urine Appearance Clear; Urine Bilirubin Negative (Negative); Urine Blood 2+ (Negative); Urine Color Straw; Urine Glucose Negative (Negative); Urine Ketones Negative (Negative); Urine Nitrite Negative (Negative); Urine Protein Negative (Negative); Urine Specific Gravity 1.016 (1.010-1.030); Urine Urobilinogen Negative (Negative)
[2019-06-08 15:50] LABS: Urine Bacteria Absent (Absent); Urine Red Blood Cell 1+(3-5/hpf) (Absent); Urine Squamous Epithelial Cell Present (Absent); Urine White Blood Cell Trace(0-5/hpf) (Absent)
[2019-06-08 16:05] LABS: Hematocrit 40 % (35-47); Hemoglobin 13.3 g/dL (12.0-16.0)
[2019-06-08] MEDS: traMADol TAB* 50 MG PO PRN (16:29)
--- NOTE | 2019-06-08 16:38 | CONS ---
CC: MIK Trinh; Dr. Magda Unger * GASTROENTEROLOGY CONSULT REPORT: DATE OF CONSULT: 06/08/19 REQUESTING PROVIDER: MIK Trinh PRIMARY PROVIDER: Dr. Magda Unger. REASON FOR CONSULT: Rectal bleeding and abdominal pain. HISTORY OF PRESENT ILLNESS: Ms. Carr is an 88-year-old woman with hypertension, sarcoidosis, anxiety, and spinal stenosis who is admitted with abdominal pain and rectal bleeding. Ms. Carr says that for the last few days she has felt slightly unwell. It is difficult for her to elaborate, although she promised that her chronic musculoskeletal pain has been a bit more. She has constipation at baseline for which she uses prune juice with moderately good effect. She had a normal bowel movement on Sunday. Yesterday afternoon, she developed significant lower abdominal discomfort. This pain worsened. She had a large loose bowel movement. She continued to have abdominal pain throughout Sunday. 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 There was a half dollar sized blood clot on the tissue when she wiped. Pain persisted in her abdomen. It was associated with mild nausea without vomiting. She presented to the ED for evaluation. In the ED, she was noted to have small amount of rectal bleeding without any significant stool output. Labs were largely unremarkable, although she had an elevated CRP. CT abdomen and pelvis demonstrated wall thickening in the descending and sigmoid likely representing submucosal edema suggestive of colitis. The patient was admitted for observation. On interview, Ms. Carr reports that the lower abdominal discomfort is 3/10 in severity. She has not had any bowel movement in the last few hours. She denies any fevers at home. She reports the constipation at baseline as mentioned above. She had a colonoscopy many years ago. She does not believe that she has ever had any polyps. She has not had any rectal bleeding in the past. PAST MEDICAL HISTORY: 1. Hypertension. 2. Sarcoidosis. 3. Anxiety. 4. Spinal stenosis. PAST SURGICAL HISTORY: 1. Partial hysterectomy. 2. Oophorectomy. 3. Four spinal surgeries. 4. Right rotator cuff surgery. FAMILY HISTORY: No known GI or liver disease. SOCIAL HISTORY: The patient lives alone in [place]. She has aides coming into her home. No children. 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 Nonsmoker. No alcohol or drug use. REVIEW OF SYSTEMS: A 12-point review of systems was completed and negative except as mentioned above. PHYSICAL EXAM: Vital Signs: Temp 99.1, heart rate in the 80s, blood pressure 160s to 180s over 80s to 90s, 97% on room air. General: Elderly, mildly frail - appearing woman. No acute distress. HEENT: Mucous membranes moist. Cardiovascular: Regular rate and rhythm. Pulmonary: Breathing comfortably. Abdomen: Soft and nondistended. There is mild to moderate tenderness in the lower abdomen particularly on the left side. No rebound tenderness or guarding noted on my exam. Extremities: No significant edema. Neuro: A and O x3. DIAGNOSTIC STUDIES/LAB DATA: Labs reviewed. White count 9.3, hemoglobin 13.1, hematocrit 39, platelet count 259. INR 1.1. Potassium 3, chloride 99, creatinine 1.01, glucose 131. Lactic acid 1.3. Magnesium level 1.6. AST and ALT within normal range. Alk phos 111. Bilirubin within normal range. CRP 15.84. Imaging: CT abdomen and pelvis as mentioned above demonstrated wall thickening in the descending and sigmoid colon likely representing colitis. No other acute findings relevant to her abdominal pain noted. IMPRESSION AND RECOMMENDATIONS: Ms. Carr is an 88-year-old woman with hypertension, anxiety, sarcoidosis, and spinal stenosis, who is admitted with bright red blood per rectum and abdominal pain. The patient is afebrile and hemodynamically stable, although she is quite hypertensive. Labs are relatively normal with the exception of an elevated CRP. Imaging does suggest the possible colitis in the descending and sigmoid colon area. The patient does have tenderness in her lower abdomen particularly in the left lower quadrant. Differential for her colitis includes infectious, inflammatory, ischemic. I think it is very appropriate to pursue supportive care with IV fluids. Can empirically start Cipro, Flagyl, as this can be given a certain types of colitis including ischemic colitis. Would recommend clear diet for today and n.p.o. after midnight. If the patient's pain is not improving or she develops ongoing rectal bleeding tomorrow, then we can consider a flexible sigmoidoscopy with enema preparation. The patient says that she is amenable to flexible sigmoidoscopy if this is felt to be helpful. If the patient has any bowel movements, please check infectious stool studies. Thank you very much for this consult. GI will continue to follow along. [id number]/[facility] #: [id number] E[place]LE
[2019-06-08] MEDS: Lidocaine Patch REMOVE* 1 NOTE MISC PATCH OFF SCH (20:14)
[2019-06-08] MEDS ORDERED: Metoprolol Succinate XL TAB* 25 MG PO SCH (21:00)
[2019-06-09 06:03] LABS: ABS Eosinophils 0.2 10^3/ul (0-0.6); ABS Lymphocytes 1.6 10^3/ul (1.0-4.8); ABS Neutrophils 7.2 10^3/ul (1.5-7.7); Eosinophil % 1.8 %; Hematocrit 35 % (35-47); Hemoglobin 12.1 g/dL (12.0-16.0); Mean Corpuscular HGB Conc 35 g/dL (31-36); Mean Corpuscular Hemoglobin 30 pg (27-31); Mean Corpuscular Volume 85 fL (80-97); Mean Platelet Volume 7.8 fL (7.4-10.4); Nucleated Red Blood Cells % 0.1; Platelet Count 235 10^3/uL (150-450); Red Blood Count 4.12 10^6 /uL (3.70-4.87); Red Cell Distribution Width 14 % (10-15); White Blood Count 10.1 10^3/uL (3.5-10.8)
[2019-06-09 06:25] LABS: BUN/Creatinine Ratio 13.6 (8-20); Calcium 10.1 mg/dL (8.6-10.3); EGFR African American 81.1 (>60); Magnesium 1.7 mg/dL (1.9-2.7); Potassium 3.4 mmol/L (3.5-5.0)
[2019-06-09] MEDS ORDERED: Magnesium Sulfate 2 GM IV* 2 GM/50 ML BAG IVPB ONE (07:26)
[2019-06-09] MEDS: NS 0.9% 1000 ML** 1,000 ML IV SCH ×2 (08:50→22:23)
[2019-06-09] MEDS: Pantoprazole TAB * 40 MG TAB PO SCH (08:52)
[2019-06-09] MEDS: Sertraline* 25 MG TAB PO SCH (08:52)
[2019-06-09] MEDS: Gabapentin CAP(*) 300 MG PO SCH ×3 (08:52→22:35)
[2019-06-09] MEDS ORDERED: Lisinopril TAB* 10 MG PO SCH (09:00)
[2019-06-09] MEDS ORDERED: Chlorthalidone TAB* 50 MG PO SCH (09:00)
--- NOTE | 2019-06-09 09:45 | HP ---
HISTORY AND PHYSICAL: DATE OF ADMISSION: 06/08/19 ADDENDUM: HOME MEDICATIONS: 1. Metoprolol succinate 25 mg p.o. at bedtime. 2. Chlorthalidone 25 mg p.o. Sunday, Sunday and Sunday. 3. Lidocaine 1 patch transdermally daily. 4. Tramadol 50 mg p.o. q. 6 hours p.r.n. pain. 5. Zoloft 25 mg p.o. daily. 6. Omeprazole 20 mg p.o. daily. 7. Gabapentin 600 mg p.o. t.i.d. 8. Cyanocobalamin 500 mcg p.o. daily. 9. Vitamin D 1000 units p.o. daily. 10. Benazepril 10 mg p.o. daily. ALLERGIES: No known drug allergies. MIK HALEY [id number]/[facility] #: [id number] [place]
[2019-06-09 11:16] LABS: Hematocrit 35 % (35-47); Hemoglobin 12.1 g/dL (12.0-16.0)
--- NOTE | 2019-06-09 11:39 | PN ---
Subjective Date of Service: 06/09/19 Interval History: HOSPITALIST PROGRESS NOTE Patient seen and examined at bedside. Care reviewed and d/w Tonia Baugh RN. She feels a little better today. Abdominal pain is less intense, but had at least two bloody BMs overnight. Family History: Unchanged from Admission Social History: Unchanged from Admission Past Medical History: Unchanged from Admission Objective Active Medications: Acetaminophen (Tylenol Tab*) 650 mg PO Q4H PRN PRN Reason: MILD PAIN or TEMP > 100.4 Al Hydrox/Mg Hydrox/Simethicone (Maalox Plus*) 30 ml PO Q6H PRN PRN Reason: INDIGESTION Gabapentin (Neurontin Cap(*)) 600 mg PO TID [facility] Last Admin: 06/09/19 08:52 Dose: 600 mg Sodium Chloride (Ns 0.9% 1000 Ml) 1,000 mls @ 75 mls/hr IV PER RATE [facility] Last Admin: 06/09/19 08:50 Dose: 75 mls/hr Iohexol (Omnipaque 300* (Contrast)) 91 ml IV ONCE [facility] Stop: 06/10/19 07:22 Last Admin: 06/08/19 09:41 Dose: 91 ml Lidocaine (Lidoderm 5% Patch*) 1 patch TRANSDERM DAILY PRN PRN Reason: PAIN - MILD Lisinopril (Prinivil Tab*) 10 mg PO DAILY [facility] Last Admin: 06/09/19 08:52 Dose: 10 mg Metoprolol Succinate (Toprol Xl Tab*) 25 mg PO BEDTIME [facility] Ondansetron HCl (Zofran Odt Tab*) 4 mg SL Q6H PRN PRN Reason: NAUSEA/VOMITING Pantoprazole Sodium (Protonix Tab*) 40 mg PO DAILY [facility] Last Admin: 06/09/19 08:52 Dose: 40 mg Pharmacy Profile Note (Lidocaine Patch Remove*) 1 note PATCH OFF BEDTIME [facility] Last Admin: 06/08/19 20:14 Dose: Not Given Senna (Senokot 8.6 Mg Tab*) 1 tab PO BID PRN PRN Reason: CONSTIPATION Sertraline HCl (Zoloft*) 25 mg PO DAILY [facility] Last Admin: 06/09/19 08:52 Dose: 25 mg Tramadol HCl (Ultram*) 50 mg PO Q6HR PRN PRN Reason: severe pain Last Admin: 06/08/19 16:29 Dose: 50 mg Vital Signs - 8 hr 06/09/19 06/09/19 06/09/19 08:00 08:52 09:00 Temperature 97.4 F Pulse Rate 65 Respiratory 16 18 18 Rate Blood Pressure 152/62 (mmHg) O2 Sat by Pulse 98 Oximetry 06/09/19 06/09/19 11:00 11:19 Temperature 98.6 F Pulse Rate 61 Respiratory 18 16 Rate Blood Pressure 168/57 (mmHg) O2 Sat by Pulse 94 Oximetry Oxygen Devices in Use Now: None Appearance: Pleasant elderly lady lying in bed in NAD Eyes: No Scleral Icterus Ears/Nose/Mouth/Throat: Mucous Membranes Moist Neck: Trachea Midline Respiratory: Symmetrical Chest Expansion and Respiratory Effort, Clear to Auscultation Cardiovascular: RRR - Normal S1 and S2 Abdominal: - - Soft, mild LLQ tenderness, no guarding or rebound, BS+ Neurological: Alert and Oriented x 3, NL Muscle Strength and Tone Result Diagrams: 06/09/19 11:08 06/09/19 05:30 Microbiology and Other Data: Microbiology 06/09/19 08:00 Stool Gross Appearance - Final Stool Stool Lactoferrin - Final Cryptosporidium/Giardia - Final Neg Cryptosporidium/Giardia 06/09/19 08:00 Stool Gross Appearance - Final Stool C. difficile DNA Amplification - Final 027 Presumptive NEGATIVE Toxigenic C.diff NEGATIVE 06/08/19 15:21 Stool Occult Blood (DAWIT) - Final Stool Assess/Plan/Problems-Billing Assessment: Mrs Carr is an 88yo F with PMH of HTN, sarcoidosis, anxiety, spinal stenosis, who presented to ED with c/o BRBPR with abdominal pain, suspected to be secondary to ischemic colitis. - Patient Problems (1) BRBPR (bright red blood per rectum) Comment: - BRBPR with abdominal pain. - CT abdome revealed "Wall thickening of the descending colon and sigmoid colon likely representing a submucosal edema consistent with colitis. No bowel obstruction is noted. Likely splenic cyst is noted. Gallstone is noted." - GI input appreciated - C diff is negative, remainder of stool w/u still pending. - Plan for possible flex sig pending GI f/u. - Continue Cipro/Flagyl - Continue IVF - H/H - continue to monitor (2) Electrolyte abnormality Comment: - Replete K and Mg. (3) HTN (hypertension) Comment: - On the higher side. - Diuretic on hold in the setting of IV hydration. - Continue ACEI and metoprolol and monitor. (4) Anxiety Comment: - Sertraline. (5) DVT prophylaxis Comment: - Pharmacological prophylaxis contraindicated in the setting of LGI bleed - SCDs (6) DNR (do not resuscitate) Status and Disposition: Change to inpatient.
[2019-06-09] MEDS: KCL 10 MEQ/50 ML IVPREMIX* 10 MEQ/50 ML BAG IV SCH ×4 (12:57→17:01)
--- NOTE | 2019-06-09 13:53 | PN ---
Progress Note - Progress Note Date of Service: 06/09/19 Note: doing better, less crampy pain, 2 bms without blood; still loose getting hungry VS: 98.6, 168/57, 61, 16 nad, +bs, soft, slight diffuse tenderness, no r/g hgb stable and nml, cdiff neg, crypto/giardia neg L colitis---?ischemic vs infection vs? doing better, stay the course, consider flex sig if not significantly better by WedHarpal MD
[2019-06-09] MEDS: Ciprofloxacin 400MG IVPREMIX(* 400 MG/200 ML BAG IVPB SCH (18:22)
[2019-06-09 19:54] LABS: Hematocrit 34 % (35-47); Hemoglobin 11.5 g/dL (12.0-16.0)
[2019-06-09] MEDS: metroNIDAZOLE IV 500 MG/100ML* 500 MG/100 ML BAG IVPB SCH (22:32)
[2019-06-09] MEDS: traMADol TAB* 50 MG PO PRN (22:35)
[2019-06-09] MEDS: Metoprolol Succinate XL TAB* 25 MG PO SCH (22:35)
[2019-06-09] MEDS: Lidocaine Patch REMOVE* 1 NOTE MISC PATCH OFF SCH (22:36)
[2019-06-10] MEDS ORDERED: hydrALAZINE IV* 20 MG/ML VIAL IV SLOW PU ONE (00:58)
[2019-06-10 03:21] LABS: Hematocrit 33 % (35-47); Hemoglobin 11.2 g/dL (12.0-16.0)
[2019-06-10 03:36] LABS: BUN/Creatinine Ratio 14.1 (8-20); Calcium 9.8 mg/dL (8.6-10.3); EGFR African American 94.4 (>60); EGFR Non-African American 78.1 (>60); Magnesium 1.8 mg/dL (1.9-2.7); Potassium 3.3 mmol/L (3.5-5.0)
[2019-06-10] MEDS: Ciprofloxacin 400MG IVPREMIX(* 400 MG/200 ML BAG IVPB SCH (03:40)
[2019-06-10] MEDS: metroNIDAZOLE IV 500 MG/100ML* 500 MG/100 ML BAG IVPB SCH (05:00)
[2019-06-10] MEDS ORDERED: Magnesium Sulfate 2 GM IV* 2 GM/50 ML BAG IVPB ONE (07:30)
[2019-06-10] MEDS: Gabapentin CAP(*) 300 MG PO SCH ×3 (07:56→22:04)
[2019-06-10] MEDS: Pantoprazole TAB * 40 MG TAB PO SCH (07:56)
[2019-06-10] MEDS: Acetaminophen TAB* 325 MG PO PRN ×2 (07:56→15:22)
[2019-06-10] MEDS: Sertraline* 25 MG TAB PO SCH (07:56)
[2019-06-10] MEDS ORDERED: Lisinopril TAB* 10 MG PO ONE (08:50)
[2019-06-10] MEDS ORDERED: Lisinopril TAB* 10 MG PO SCH (09:00)
[2019-06-10] MEDS: KCL 10 MEQ/50 ML IVPREMIX* 10 MEQ/50 ML BAG IV SCH (10:14)
[2019-06-10] MEDS ORDERED: Furosemide IV* 10 MG/ML 2 ML VIAL (20 MG) IV SLOW PU ONE (10:20)
--- NOTE | 2019-06-10 10:49 | PN ---
Subjective Date of Service: 06/10/19 Interval History: HOSPITALIST PROGRESS NOTE Patient seen and examined at bedside. Care reviewed and d/w Shanell Stewart RN. She feels a little better today. Did not sleep well last night, concerned with her hospital stay. Still has mild LLQ, hypogastric pain. Two BMs today but with no blood. Family History: Unchanged from Admission Social History: Unchanged from Admission Past Medical History: Unchanged from Admission Objective Active Medications: Acetaminophen (Tylenol Tab*) 650 mg PO Q4H PRN PRN Reason: MILD PAIN or TEMP > 100.4 Last Admin: 06/10/19 07:56 Dose: 650 mg Al Hydrox/Mg Hydrox/Simethicone (Maalox Plus*) 30 ml PO Q6H PRN PRN Reason: INDIGESTION Amoxicillin/Clavulanate Potassium (Augmentin Tab*) 875 mg PO BID [facility] Chlorthalidone (Hygroton Tab*) 25 mg PO DAILY [facility] Gabapentin (Neurontin Cap(*)) 600 mg PO TID [facility] Last Admin: 06/10/19 07:56 Dose: 600 mg Lidocaine (Lidoderm 5% Patch*) 1 patch TRANSDERM DAILY PRN PRN Reason: PAIN - MILD Lisinopril (Prinivil Tab*) 20 mg PO DAILY [facility] Magnesium Oxide (Magox 400 Tab*) 800 mg PO BID [facility] Metoprolol Succinate (Toprol Xl Tab*) 25 mg PO BEDTIME [facility] Last Admin: 06/09/19 22:35 Dose: 25 mg Pantoprazole Sodium (Protonix Tab*) 40 mg PO DAILY [facility] Last Admin: 06/10/19 07:56 Dose: 40 mg Pharmacy Profile Note (Lidocaine Patch Remove*) 1 note PATCH OFF BEDTIME [facility] Last Admin: 06/09/19 22:36 Dose: Not Given Potassium Chloride (Klor Con Er Tab*) 40 meq PO Q4H [facility] Stop: 06/10/19 15:01 Senna (Senokot 8.6 Mg Tab*) 1 tab PO BID PRN PRN Reason: CONSTIPATION Sertraline HCl (Zoloft*) 25 mg PO DAILY [facility] Last Admin: 06/10/19 07:56 Dose: 25 mg Tramadol HCl (Ultram*) 50 mg PO Q6HR PRN PRN Reason: severe pain Last Admin: 06/09/19 22:35 Dose: 50 mg Vital Signs - 8 hr 06/10/19 06/10/19 06/10/19 03:09 03:26 07:40 Temperature 97.3 F 98.2 F Pulse Rate 72 76 Respiratory 16 16 Rate Blood Pressure 162/63 168/64 188/74 (mmHg) O2 Sat by Pulse 94 95 Oximetry 06/10/19 06/10/19 06/10/19 07:56 08:00 10:13 Temperature Pulse Rate Respiratory 16 16 16 Rate Blood Pressure (mmHg) O2 Sat by Pulse Oximetry Oxygen Devices in Use Now: None Appearance: Pleasant elderly lady sitting up in bed in NAD Eyes: No Scleral Icterus Ears/Nose/Mouth/Throat: Mucous Membranes Moist Neck: Trachea Midline Respiratory: Symmetrical Chest Expansion and Respiratory Effort, Clear to Auscultation Cardiovascular: RRR - Normal S1 and S2 Abdominal: - - Soft, mild LLQ tenderness, NG, NR, BS+ Neurological: Alert and Oriented x 3, NL Muscle Strength and Tone Result Diagrams: 06/10/19 03:13 06/10/19 03:13 Microbiology and Other Data: Microbiology 06/09/19 08:00 Stool Gross Appearance - Final Stool Stool Lactoferrin - Final Cryptosporidium/Giardia - Final Neg Cryptosporidium/Giardia 06/09/19 08:00 Stool Gross Appearance - Final Stool C. difficile DNA Amplification - Final 027 Presumptive NEGATIVE Toxigenic C.diff NEGATIVE 06/08/19 15:21 Stool Occult Blood (DAWIT) - Final Stool Assess/Plan/Problems-Billing Assessment: Mrs Carr is an 88yo F with PMH of HTN, sarcoidosis, anxiety, spinal stenosis, who presented to ED with c/o BRBPR with abdominal pain, suspected to be secondary to ischemic colitis. - Patient Problems (1) BRBPR (bright red blood per rectum) Comment: - BRBPR with abdominal pain. - CT abdome revealed "Wall thickening of the descending colon and sigmoid colon likely representing a submucosal edema consistent with colitis. No bowel obstruction is noted. Likely splenic cyst is noted. Gallstone is noted." - C diff is negative, remainder of stool w/u still pending. - Change Cipro/Flagyl to PO Augmentin. - D/c IVF, advance diet and encourage PO intake. - H/H trended down to - continue to monitor (2) Electrolyte abnormality Comment: - Replete K and Mg. (3) HTN (hypertension) Comment: - On the higher side. - Increase Lisinopril, resume chlortalidone, and continue metoprolol. (4) Anxiety Comment: - Sertraline. (5) DVT prophylaxis Comment: - Pharmacological prophylaxis contraindicated in the setting of LGI bleed - SCDs (6) DNR (do not resuscitate) Status and Disposition: Inpatient. Anticipate d/c in AM if she continues to improve.
[2019-06-10] MEDS: Potassium Chlor TAB* 20 MEQ TAB.ER PO SCH ×2 (11:26→15:22)
[2019-06-10] MEDS: Magnesium Oxide TAB* 400 MG PO SCH ×2 (11:26→22:04)
[2019-06-10] MEDS: Chlorthalidone TAB* 50 MG PO SCH (11:26)
[2019-06-10] MEDS: Amoxicillin/Clavulanate TAB* 875 MG PO SCH ×2 (11:27→22:04)
[2019-06-10] MEDS: Metoprolol Succinate XL TAB* 25 MG PO SCH (22:04)
[2019-06-10] MEDS: traMADol TAB* 50 MG PO PRN (22:05)
[2019-06-10] MEDS: Lidocaine Patch REMOVE* 1 NOTE MISC PATCH OFF SCH (22:06)
[2019-06-10] MEDS ORDERED: hydrALAZINE IV* 20 MG/ML VIAL IV SLOW PU PRN (23:13)
[2019-06-10] MEDS ORDERED: amLODIPine TAB* 5 MG PO ONE (23:42)
[2019-06-11] MEDS: Sertraline* 25 MG TAB PO SCH (08:03)
[2019-06-11] MEDS: Pantoprazole TAB * 40 MG TAB PO SCH (08:03)
[2019-06-11] MEDS: Magnesium Oxide TAB* 400 MG PO SCH (08:03)
[2019-06-11] MEDS: Amoxicillin/Clavulanate TAB* 875 MG PO SCH (08:03)
[2019-06-11] MEDS: Chlorthalidone TAB* 50 MG PO SCH (08:04)
[2019-06-11] MEDS: Acetaminophen TAB* 325 MG PO PRN (08:04)
[2019-06-11] MEDS: Gabapentin CAP(*) 300 MG PO SCH ×2 (08:05→13:26)
[2019-06-11] MEDS ORDERED: Lisinopril TAB* 10 MG PO SCH (09:00)
[2019-06-11 13:16] VITALS: BP 142/61
[2019-06-11] MEDS: traMADol TAB* 50 MG PO PRN (13:27)
--- NOTE | 2019-06-13 08:44 | DS ---
CC: Dr. Magda Unger; Dr. Ruiz; Dr. oRsario DISCHARGE SUMMARY: DATE OF ADMISSION: 06/08/19 DATE OF DISCHARGE: 06/11/19 PRIMARY CARE PROVIDER: Dr. Magda Unger. CONSULTING LEAN COACH: Dr. Ruiz and Dr. Rosario. DISCHARGE DIAGNOSIS: Colitis, likely ischemic. SECONDARY DIAGNOSES: 1. Uncontrolled hypertension. 2. Sarcoidosis. 3. Anxiety. 4. Spinal stenosis. 5. Status post partial hysterectomy. 6. Status post oophorectomy. 7. History of multiple spinal surgeries. 8. Status post right rotator cuff repair. 9. Hypokalemia. 10. Hypomagnesemia. MEDICATION LIST: 1. Chlorthalidone 25 mg p.o. Mondays, Wednesdays and Fridays. 2. Cholecalciferol 1000 units p.o. daily. 3. Cyanocobalamin 500 mcg p.o. daily. 4. Gabapentin 600 mg p.o. t.i.d. 5. Lidoderm patch topical daily, remove at bedtime. 6. Metoprolol succinate 25 mg p.o. at bedtime. 7. Omeprazole 20 mg p.o. daily. 8. Sertraline 25 mg p.o. daily. 9. Tramadol 50 mg p.o. q.6 hours p.r.n. pain. Medication Change: Benazepril was increased from 10 to 20 mg p.o. daily. New Medications: 1. Augmentin 875 mg p.o. b.i.d. for 4 more days. 2. Magnesium oxide 800 mg p.o. daily. 3. Potassium chloride 20 mEq p.o. daily. HOSPITAL COURSE: Ms. Carr is an 88-year-old female with a past medical history stated above that p resented to the emergency room with complaints of lower abdominal pain associated with bright red blo od per rectum. For more details about her presentation, I refer you to her history and physical. In the emergency room, the patient had a CT of the abdomen and pelvis that revealed wall thickening o f the descending colon and sigmoid colon likely representing submucosal edema consistent with colitis . There was no bowel obstruction noted. There was likely splenic cyst and gallstones. The patient was admitted for further evaluation and management. She was seen in consultation by [facility] (Dr. Ruiz) and her impression was the patient likely had colitis and the differen tial included infectious, inflammatory or ischemic. She recommended supportive care as well as empir ical treatment with ciprofloxacin and metronidazole. The plan was to continue to monitor the patient and if she continued to have rectal bleeding, she will pursue flex sigmoidoscopy. The patient progre ssed with improvement of her symptoms and resolution of her hematochezia. Her hemoglobin on admissio n was 13.1 and it dropped to 11.2 on the day of discharge. Her abdominal pain was improved and she w as having formed stool, no longer with bright red blood. She had hypokalemia and hypomagnesemia that were repleted while in the hospital and she was discharged on further p.o. supplementation. One of the issues during her hospital stay was uncontrolled hypertension. This was initially thought to be secondary to pain, but even after her pain was controlled, the uncontrolled hypertension persi sted. At that point, the patient's LEIGHTON inhibitor dose was increased and she also was restarted on he r diuretics with good response. In conversation with her primary care provider, it appears that this has been a chronic issue that required changes to her LEIGHTON inhibitor dose in the past. The plan for n ow is to continue this current dose, but she will need monitoring as outpatient for further adjustmen t as necessary. The patient was seen in followup by GI (Dr. Rosario) and at that point, as the patient was improving, it was felt that flex sigmoidoscopy was no longer necessary. The patient's diet was advanced. She w as able to tolerate it well and she was thought to be medically stable to be discharged home to [facility] with her primary care provider. PHYSICAL EXAMINATION: Vital Signs: Temperature 98.2, heart rate is 52, respiratory rate is 18, oxyg en saturation 99% on room air, blood pressure is 142/61. General: The patient is a pleasant elderly lady, sitting up on bed, in no acute distress. HEENT: Pupils are equal. Moist mucous membranes. CVS: Normal S1, S2. Regular rate and rhythm. Chest: Breath sounds bilaterally with no added sound s. Abdomen: Soft with mild left lower quadrant tenderness. No guarding, no rebound. Bowel sounds are present. Neuro: She is alert x3. Able to move all 4 extremities. DIET: Regular diet as tolerated. ACTIVITY: As tolerated. DISPOSITION: To home. STATUS IN THE HOSPITAL: Inpatient. CONDITION AT THE TIME OF DISCHARGE: Fair. Please keep in mind that this is a summarized version of this patient's hospital stay. If you need i nformation, please feel free to call me at [phone] or please obtain full medical records. Dr. Nisreen mahoney was called and updated about the patient's hospital stay. Approximately 50 minutes was spent to complete this discharge. [id number]/CPS #: [id number]
== END 2019-06-11 13:45 | disposition home health service (06) | DRG 395 ==
LOC: ED 05:30 → MEDTELE 11:05 → OBSVTOIN 06-09 12:03
PROVIDERS: ADMIT Internal Medicine; ATTEND Internal Medicine
DX: K55.9 Vascular disorder of intestine, unspecified (principal); E87.8 Other disorders of electrolyte and fluid balance, not elsewhere classified; I10 Essential (primary) hypertension; F41.9 Anxiety disorder, unspecified; D86.9 Sarcoidosis, unspecified; M48.00 Spinal stenosis, site unspecified; Z66 Do not resuscitate; Z83.3 Family history of diabetes mellitus; Z82.3 Family history of stroke; Z79.899 Other long term (current) drug therapy
CPT/HCPCS: 36415; 74177; 80048; 80053; 81003; 81015; 82272; 83605; 83630; 83735; 85014; 85018; 85025; 85610; 85730; 86140; 86850; 86900; 86901; 87045; 87046; 87086; 87328; 87329; 87493; 87899; 93005; 96365; 96366; 99285; A9270-GY; G0378; J0360; J0744; J3475; J3480; Q9967

== ENCOUNTER 2021-09-11 10:37 | Inpatient (IN) ==
[2021-09-11 11:40] LABS: ABS Eosinophils 0.2 10^3/ul (0-0.6); ABS Lymphocytes 1.2 10^3/ul (1.0-4.8); ABS Monocytes 0.5 10^3/ul (0-0.8); ABS Neutrophils 2.8 10^3/ul (1.5-7.7); Eosinophil % 4.5 %; Hematocrit 43 % (35-47); Hemoglobin 14.7 g/dL (12.0-16.0); Lymphocyte % 26.1 %; Mean Corpuscular HGB Conc 34 g/dL (31-36); Mean Corpuscular Hemoglobin 30 pg (27-31); Mean Corpuscular Volume 88 fL (80-97); Mean Platelet Volume 7.1 fL (7.4-10.4); Platelet Count 241 10^3/uL (150-450); Red Blood Count 4.86 10^6 /uL (3.70-4.87); Red Cell Distribution Width 14 % (10-15); White Blood Count 4.7 10^3/uL (3.5-10.8)
[2021-09-11 12:31] LABS: Blood Urea Nitrogen 31 mg/dL (6-24); CO2 Carbon Dioxide 28 mmol/L (22-32); Calcium 10.3 mg/dL (8.6-10.3); Chloride 101 mmol/L (101-111); Glucose 94 mg/dL (70-100); Sodium 133 mmol/L (135-145); eGFR CKD-EPI 63.6 (>60)
[2021-09-11 12:44] LABS: Anion Gap 4 mmol/L (2-11)
[2021-09-11 13:55] LABS: Magnesium 1.9 mg/dL (1.9-2.7); Potassium Redraw 3.9 mmol/L (3.5-5.0)
[2021-09-11] MEDS ORDERED: Magnesium Hydroxide LIQ 30 ML UDC PO PRN (14:55)
[2021-09-11] MEDS ORDERED: hydrALAZINE 20 mg/ml 1 ML Vial IV IV SLOW PU ONE (15:12)
[2021-09-11 15:25] LABS: Urine Appearance Clear; Urine Bilirubin Negative (Negative); Urine Blood Negative (Negative); Urine Color Straw; Urine Glucose Negative (Negative); Urine Ketones Negative (Negative); Urine Nitrite Negative (Negative); Urine Protein Negative (Negative); Urine Specific Gravity 1.009 (1.002-1.030); Urine Urobilinogen Negative (Negative)
[2021-09-11] MEDS: Enoxaparin 40 MG/0.4 ML SYR SUBCUT SCH (15:48)
[2021-09-11] MEDS ORDERED: hydrALAZINE 20 mg/ml 1 ML Vial IV IV SLOW PU PRN (16:44)
[2021-09-11] MEDS ORDERED: Senna TAB 8.6 mg TAB PO PRN (17:39)
[2021-09-11] MEDS ORDERED: Docusate LIQ 100 MG/10 ML UDC PO PRN (17:39)
[2021-09-11] MEDS: Calcium Polycarbophil 625mg TB PO SCH (20:56)
[2021-09-12 06:59] LABS: ABS Eosinophils 0.2 10^3/ul (0-0.6); ABS Lymphocytes 1.4 10^3/ul (1.0-4.8); ABS Monocytes 0.4 10^3/ul (0-0.8); ABS Neutrophils 1.8 10^3/ul (1.5-7.7); Eosinophil % 4.9 %; Hematocrit 38 % (35-47); Lymphocyte % 36.9 %; Mean Corpuscular HGB Conc 35 g/dL (31-36); Mean Corpuscular Hemoglobin 30 pg (27-31); Mean Corpuscular Volume 87 fL (80-97); Mean Platelet Volume 7.2 fL (7.4-10.4); Platelet Count 224 10^3/uL (150-450); Red Blood Count 4.34 10^6 /uL (3.70-4.87); Red Cell Distribution Width 14 % (10-15); White Blood Count 3.9 10^3/uL (3.5-10.8)
[2021-09-12 07:17] LABS: Calcium 9.8 mg/dL (8.6-10.3); Potassium 3.9 mmol/L (3.5-5.0); eGFR CKD-EPI 56.6 (>60)
[2021-09-12] MEDS: Calcium Polycarbophil 625mg TB PO SCH ×2 (10:45→21:42)
[2021-09-12] MEDS: Aspirin EC 81 mg TAB.EC (enteric coated) PO SCH (10:46)
[2021-09-12] MEDS: Polyethylene Glycol 3350 17 GM PACKET PO SCH (10:47)
[2021-09-12] MEDS: IPRATROPIUM BR 0.03% BOTH NARES SCH (10:51)
[2021-09-12] MEDS ORDERED: fentaNYL PATCH 12 MCG/HR 1 PATCH TRANSDERM SCH (14:00)
[2021-09-12] MEDS: Enoxaparin 40 MG/0.4 ML SYR SUBCUT SCH (15:14)
[2021-09-12] MEDS ORDERED: Iodixanol (CONTRAST) 320 MG/ML 100 ML SDV IV ONE (16:47)
[2021-09-12] MEDS: fentaNYL Patch Check Q Shift NOTE FOLLOW UP SCH (19:21)
[2021-09-13 05:34] LABS: Potassium 4.3 mmol/L (3.5-5.0); eGFR CKD-EPI 62.8 (>60)
[2021-09-13] MEDS: fentaNYL Patch Check Q Shift NOTE FOLLOW UP SCH ×2 (07:05→19:05)
[2021-09-13] MEDS: Aspirin EC 81 mg TAB.EC (enteric coated) PO SCH (09:19)
[2021-09-13] MEDS: Calcium Polycarbophil 625mg TB PO SCH ×2 (09:21→20:31)
[2021-09-13] MEDS: Polyethylene Glycol 3350 17 GM PACKET PO SCH (09:21)
[2021-09-13] MEDS: Enoxaparin 40 MG/0.4 ML SYR SUBCUT SCH (13:46)
[2021-09-13] MEDS: IPRATROPIUM BR 0.03% BOTH NARES SCH (16:14)
[2021-09-13] MEDS: [UNRECOGNIZED DRUG - OTHER] BOTH EYES PRN (16:15)
[2021-09-14 05:21] LABS: ABS Eosinophils 0.2 10^3/ul (0-0.6); ABS Lymphocytes 1.3 10^3/ul (1.0-4.8); ABS Monocytes 0.4 10^3/ul (0-0.8); ABS Neutrophils 1.6 10^3/ul (1.5-7.7); Eosinophil % 5.2 %; Hematocrit 35 % (35-47); Hemoglobin 12.1 g/dL (12.0-16.0); Lymphocyte % 36.3 %; Mean Corpuscular HGB Conc 34 g/dL (31-36); Mean Corpuscular Hemoglobin 30 pg (27-31); Mean Corpuscular Volume 87 fL (80-97); Mean Platelet Volume 7.2 fL (7.4-10.4); Nucleated Red Blood Cells % 0.1; Platelet Count 196 10^3/uL (150-450); Red Blood Count 4.04 10^6 /uL (3.70-4.87); Red Cell Distribution Width 14 % (10-15); White Blood Count 3.6 10^3/uL (3.5-10.8)
[2021-09-14 05:37] LABS: Calcium 9.7 mg/dL (8.6-10.3); Magnesium 1.7 mg/dL (1.9-2.7); Potassium 3.8 mmol/L (3.5-5.0); eGFR CKD-EPI 57.3 (>60)
[2021-09-14] MEDS ORDERED: Potassium Chlor 20 meq TAB.ER PO ONE (07:25)
[2021-09-14] MEDS: fentaNYL Patch Check Q Shift NOTE FOLLOW UP SCH (07:50)
[2021-09-14] MEDS: Calcium Polycarbophil 625mg TB PO SCH (07:52)
[2021-09-14] MEDS: Aspirin EC 81 mg TAB.EC (enteric coated) PO SCH (07:53)
[2021-09-14] MEDS: IPRATROPIUM BR 0.03% BOTH NARES SCH (07:56)
[2021-09-14] MEDS: [UNRECOGNIZED DRUG - OTHER] BOTH EYES PRN (07:56)
[2021-09-14] MEDS: Polyethylene Glycol 3350 17 GM PACKET PO SCH (08:01)
[2021-09-14 09:04] VITALS: BP 149/80
== END 2021-09-14 11:20 | disposition home health service (06) | DRG 309 ==
LOC: EDHOLD 10:37 → ED 10:37 → SUATTDRO 14:55 → MEDTELE 16:16
PROVIDERS: ADMIT Internal Medicine; ATTEND Internal Medicine